=== PATIENT | male | born 1950 | race Caucasian/White ===

== ENCOUNTER 2025-03-16 11:27 | Emergency (ER) | payer MEDICARE, BC, SELFPAY ==
[2025-03-16] VITALS (9 sets, daily range): BP systolic 133–160; BP diastolic 75–105; PULSE 56–87; RESP 12–18; TEMP 36.6; O2SAT 95–99; BMI 26.5
--- OUTSIDE RECORDS SUMMARY | 2025-03-16 11:39 | XMS_ITS | Clinical Summary ---
Author Organization [employer] ([facility] 03/10/2024) ([place] [place]) Address [address] [place] [address] Care Team Providers Care Rent And Housing Investigator Name Role Phone Denise Peck DO Primary Care Provider Social History Tobacco Use Types Packs/Day Years Used Date Smoking Tobacco: Never Assessed Sex and Gender Information Value Date Recorded Sex Assigned at Not on file Legal Sex Male 5:32 PM EDT Gender Identity Not on file Sexual Orientation Not on file Last Filed Vital Signs Vital Sign Reading Time Taken Comments Blood Pressure - - Pulse - - Temperature - - Respiratory Rate - - Oxygen Saturation - - Inhaled Oxygen Concentration - - Weight 88.5 kg (195 lb) 06/04/2013 10:34 AM EDT Height - - Body Mass Index - - Plan of Treatment Health Maintenance Due Date Last Done Comments CT Colonography 1950 Colonoscopy 1950 Colorectal Cancer Screening 1950 FIT-DNA 1950 FIT/FOBT 1950 SCREENING: HEPATITIS C 1950 Sigmoidoscopy 1949 SCREENING: DEPRESSION 1961 HEALTH MAINTENANCE EXAM (ADULT) 1968 VACCINE: TETANUS,DIPHTHERIA BOOSTER (TD BOOSTER) EVERY 10 YEARS 1968 Pneumococcal Vaccine: 65+ Ye ars (1 of 1 - PCV) 12/23/1999 VACCINE: ZOSTER (SHINGRIX) (#1) 12/23/1999 Advance Care Planning Documentation 2014 SCREENING: FALL RISK 2014 VACCINE: COVID-19 ( - 2023- season) 2024 VACCINE: INFLUENZA (#1) 2025 VACCINE: HEPATITIS A Aged Out No long er eligible based on patient's age to complete this topic Vaccines: HIB Aged Out No longer elig ible based on patient's age to complete this topic Vaccines: IPV Aged Out No longer elig ible based on patient's age to complete this topic Vaccines: Meningococcal B Aged Out No longer eligible based on patient's age to complete this topic Vaccines: Meningococcal Aged Out No l onger eligible based on patient's age to complete this topic Vaccines: Rotavirus Aged Out No longe r eligible based on patient's age to complete this topic Care Teams Rent And Housing Investigator Relationship Specialty [place] [address] [place] [address] PCP - General 05/24/13
--- OUTSIDE RECORDS SUMMARY | 2025-03-16 11:39 | XMS_ITS | Encounter Summary ---
Author Organization [facility] stem Address [address] [place] [address] Care Team Providers Care Crystal Mounter Name Role Phone Denise Peck DO Primary Care Provider Encounter Details Date Type Department Care Team (Late st Contact Info) Description 10/06/2014 Scanned Document [facility] Information Management - [facility] [address] [place] [address] Ordering, Generic Social History Tobacco Use Types Packs/Day Years Used Date Smoking Tobacco: Never Sex and Gender Information Value Date Recorded Sex Assigned at Not on file Legal Sex Male 11:44 AM EDT Gender Identity Not on file Sexual Orientation Not on file documented as of this encounter H&P Notes * Ordering, Generic - 10/06/2014 12:00 PM EST documented in this encounter Plan of Treatment Not on file documented as of this encounter Visit Diagnoses Not on filedocumented in this encounter Care Teams Crystal Mounter Relationship Specialty Start Date End Date Denise Peck DO PCP - General Family Medicine 06/03/14 documented as of this encounter
--- OUTSIDE RECORDS SUMMARY | 2025-03-16 11:39 | XMS_ITS | Clinical Summary ---
Author Organization [facility] Address [address] [place] [address] Care Team Providers Care Cotton Sampler Name Role Phone Denise Peck DO Primary Care Provider [phone] Allergies No known active allergies Medications lisinopril (PRINIVIL,ZESTRI L) 10 MG tablet Take 10 mg by mouth daily. Active OMEGA-3/DHA/EPA/ FISH OIL (FISH OIL-OMEGA-3 FATTY ACIDS) 300-1,000 mg capsule Take 2 g by mouth daily. Active naproxen (NAPROSYN) 500 MG tabletIndication s:Disorders of bursae and tendons in shoulder region, unspecified Take 1 tablet (500 mg total) by mouth 2 (two) times daily with meals. 60 tablet 2 06/03/2014 Active Active Problems No known active problems Social History Tobacco Use Types Packs/Day Years Used Date Smoking Tobacco: Never Sex and Gender Information Value Date Recorded Sex Assigned at Not on file Legal Sex Male 11:44 AM EDT Gender Identity Not on file Sexual Orientation Not on file Last Filed Vital Signs Vital Sign Reading Time Taken Comments Blood Pressure 122/64 07/01/2014 4:07 PM EST Pulse - - Temperature - - Respiratory Rate - - Oxygen Saturation - - Inhaled Oxygen Concentration - - Weight 86.6 kg (191 lb) 07/01/2014 4:07 PM EST Height 185.4 cm (6' 1 ) 07/01/2014 4:07 PM EST Body Mass Index 25.2 07/01/2014 4:07 PM EST Plan of Treatment Not on file Insurance [facility] Care Teams Cotton Sampler Relationship Specialty Start Date End Date Denise Peck DO PCP - General Family Medicine 06/03/14
--- OUTSIDE RECORDS SUMMARY | 2025-03-16 11:39 | XMS_ITS | Encounter Summary ---
Author Organization [employer] ([facility] [place] 03/10/2024) ([facility], and [place]) Address [address] [place] [address] Care Team Providers Care Relief Operator Name Role Phone Unavailable Primary Care Provider Unavailabl e Encounter Details Date Type Department Care Team (Late st Contact Info) Description 04/05/1976 - 04/05/1976 11:59 PM EDT Emergency [facility] Social History Tobacco Use Types Packs/Day Years Used Date Smoking Tobacco: Never Assessed Sex and Gender Information Value Date Recorded Sex Assigned at Not on file Legal Sex Male 5:32 PM EDT Gender Identity Not on file Sexual Orientation Not on file documented as of this encounter Plan of Treatment Not on file documented as of this encounter Visit Diagnoses Not on filedocumented in this encounter
--- OUTSIDE RECORDS SUMMARY | 2025-03-16 11:39 | XMS_ITS | Referral Summary ---
Author Organization [employer] ([facility] 03/10/2024) ([facility], and [place]) Address [address] [place] [address] Care Team Providers Care Laborer Hide House Name Role Phone Denise Peck DO Primary Care Provider [phone] Social History Tobacco Use Types Packs/Day Years [...] Mass Index - - Plan of Treatment Not on file Care Teams Laborer Hide House Relationship Specialty [place] [address] [place] [address] PCP - General 05/24/13
--- NOTE | 2025-03-16 11:42 | ECG_ITS ---
[facility]25[facility]16 Pat Name: Flynn Colunga Department: Room: Gender: Male Web Project Manager: : 1950 Requested By: Papo Berger Order Number: [id number] Matias MD: Joshua Montague M.D. Measurements Intervals [place] Rate: 56 P: 0 NY: 0 QRS: 56 QRSD: 84 T: 57 QT: 467 QTc: 454 Interpretive Statements SINUS RHYTHM ATRIOVENTRICULAR DISSOCIATION ABNORMAL EKG No previous ECG available for comparison Electronically Signed On 03-16-2025 15:37:18 CDT by Eddi [id number]
--- NOTE | 2025-03-16 11:42 | XRR_ITS ---
PROCEDURE INFORMATION: Exam: XR Chest Exam date and time: 03/16/2025 11:48 AM Age: 74 years old Clinical indication: Other: Weak dizzy; Additional info: Dizziness TECHNIQUE: Imaging protocol: Radiologic exam of the chest. Views: 1 view. COMPARISON: No relevant prior studies available. FINDINGS: Lungs: Unremarkable. No consolidation. Pleural spaces: Unremarkable. No pleural effusion. No pneumothorax. Heart/Mediastinum: Borderline cardiomegaly. Bones/joints: No acute findings. XR/XR chest 1V portable [id number] IMPRESSION: No acute findings.
[2025-03-16 11:50] LABS: Hematocrit 47.4 % (37-53); Hemoglobin 16.10 g/dL (11.27-16.99); Mean Corpuscular HGB Conc 34.0 g/dL (30-55); Mean Corpuscular Hemoglobin 31.0 pg (27-33); Mean Corpuscular Volume 91.2 fl (82-101); Nucleated Red Blood Cells % 0 %; Platelet Count 215 10^3/cmm (157-399); Red Blood Count 5.20 10^6/uL (3.85-5.65); White Blood Count 8.84 10^3/uL (3.29-11.43)
[2025-03-16 12:14] LABS: Troponin(5th) Baseline 9 ng/L (0-15)
[2025-03-16 12:17] LABS: Magnesium 2.6 mg/dL (1.7-2.3)
[2025-03-16 12:20] LABS: Alanine Aminotransferase 11 U/L (0-41); Albumin Level 4.1 g/dL (3.5-5.2); Alkaline Phosphatase 99 U/L (40-130); Anion Gap 16.8 (5-19); Aspartate Amino Transferase 14 U/L (0-40); Blood Urea Nitrogen 14 mg/dL (8-23); Calcium 8.7 mg/dL (8.5-10.5); Carbon Dioxide 24 mmol/L (22-29); Chloride 104 mmol/L (98-107); Creatinine Clr Calc Pharmacy 69.2749; Globulin 2.1 g/dL (1.3-4.6); Glucose 112 mg/dL (65-115); NT Pro B Type Natriuretic Pept 124 pg/mL (0-450); Osmolality Calculated 293 mOsm/kg (285-295); Potassium 3.8 mmol/L (3.5-5.1); Sodium 141 mmol/L (136-145); Total Protein 6.2 g/dL (6.6-8.7)
--- NOTE | 2025-03-16 12:30 | PC.PHAR ---
Addendum entered by Charmaine Rios 03/16/25 12:32: Pt will need a few tablets until he can get home. Original Note: Pt states his bp has been stable for the last 2 months so he has not been taking his lisinopril 10mg. He sees now, that he should have been. Pt visiting from [place].
--- NOTE | 2025-03-16 12:36 | ED_ITS ---
HPI - Dizziness 2 General: Chief Complaint: Dizziness Stated Complaint: weakness Time Seen by Provider: 03/16/25 11:36 History of Present Illness: HPI Narrative: Flynn Colunga presents with acute onset of sweating, racing heart, and leg spasms that began approximately 45 minutes after eating biscuits and gravy this morning while at [employer]. The patient reports that he began feeling unwell about 45 minutes after eating breakfast. He experienced profuse sweating and a sensation of his heart racing, which he likened to previous episodes of gallbladder trouble in 2005. Due to these symptoms and a developing headache, he borrowed and took a nitroglycerin tablet from his brother. Subsequently, he went outside and sat down, where he continued to sweat heavily. Bystanders reported that he lost consciousness for approximately 15 seconds. Upon regaining consciousness, he found that an ambulance had arrived. Mr. Colunga also mentions a fall that occurred three days ago on Monday afternoon, resulting in shoulder pain, a scratched head, and bruising of his knee and elbow. He reports being unable to sleep on the affected shoulder and suspects he may have bruised a bone internally. Additionally, he notes that his leg began experiencing spasms while in the ambulance, a symptom he had never experienced before. He describes the spasms as starting in his upper leg and progressing downward. The patient's medical history includes a recent hospitalization for COVID-19 with pneumonia, lasting 7-8 days. Following his discharge, he reports his blood pressure had normalized, but he now notices it has increased again. He mentions discontinuing lisinopril 10 mg two months ago, which he had previously been taking. Mr. Colunga denies any history of atrial fibrillation, heart stents, or heart surgeries. Related Data Home Medications ?Medication ?Instructions ?Recorded ?Confirmed lisinopril 10 mg tablet 10 mg PO DAILY 03/16/2502/19 Allergies Allergy/AdvReac Type Severity Reaction Status Date / Time No Known Allergies Allergy Unverified 03/16/25 12:30 Review of Systems 2 General: Reports: 10 or more systems reviewed and unremarkable except in HPI and below Physical Exam 2 Const: COMMON NORMALS: no acute distress, patient oriented x3, healthy appearing, alert and well nourished HENMT: COMMON NORMALS: normocephalic HEAD & SCALP: normocephalic Eye: COMMON NORMALS: EOMs intact bilaterally Neck/C-Spine: COMMON NORMALS: full ROM and supple Resp: COMMON NORMALS: normal respiratory effort, No retractions and clear to auscultation bilaterally AUSCULTATION: clear to auscultation bilaterally Cardio: COMMON NORMALS: regular rate, regular rhythm, No gallops present (Cardio) and No murmurs present (Cardio) RATE: regular rate RHYTHM: r egular rhythm GI: COMMON NORMALS: Soft to palpation and non-tender PALPATION: Yes Soft to palpation Extremity: GENERAL: Yes normal exam except as noted Neuro: COMMON NORMALS: patient oriented x3 SENSORIUM/ORIENTATION: Yes alert Skin: COMMON NORMALS: no rashes or lesions noted GENERAL SKIN EXAM: no rashes or lesions noted Course 2 Vital Signs: Vital signs: Vital Signs Temperature 97.9 F 03/16/25 11:37 Pulse Rate 87 03/16/25 15:32 Respiratory Rate 18 03/16/25 15:00 Blood Pressure 140/85 03/16/25 15:32 Pulse Oximetry 96 03/16/25 15:32 Oxygen Delivery Me thod Room Air 03/16/25 15:00 MDM - Dizziness Medical Decision Making 74-year-old male presents to the emergency department for evaluation of near syncope and diaphoresis. Patient experienced near syncope just prior to arrival with some diaphoresis. He took a nitro without any improvement in symptoms. After the nitro there is a report of him having a syncopal episode. On initial evaluation he is hypertensive with a slightly slow pulse rate satting 99% on room air. Physical exam the patient has no acute distress with a globally normal physical exam. Chest x-ray had no acute findings. CBC and CMP were normal. Initial and 2-hour tropes were not elevated outside of normal. EKG initially demonstrated possible paroxysmal A-fib that resolved on 2-hour repeat EKG. Patient felt significantly improved with 1 L of fluid. His magnesium was elevated, this is likely secondary to hypervolemia. Encouraged the patient to follow-up with his primary care provider regarding this syncopal episode and possible paroxysmal A-fib. He may benefit from Holter monitor. Return precautions were discussed and the patient was discharged home in stable condition. Lab Data 03/16/25 11:41 03/16/25 11:41 Radiology Impressions Chest X-Ray 03/16/25 11:42 IMPRESSION: No acute findings. Laboratory Results WBC 8.84 10^3/uL (3.29-11.43) 03/16/25 11:41 RBC 5.20 10^6/uL (3.85-5.65) 03/16/25 11:41 Hgb 16.10 g/dL (11.27-16.99) 03/16/25 11:41 Hct 47.4 % (37-53) 03/16/25 11:41 MCV 91.2 fl (82-101) 03/16/25 11:41 MCH 31.0 pg (27-33) 03/16/25 11:41 MCHC 34.0 g/dL (30-55) 03/16/25 11:41 RDW 12.6 % (12.1-15.1) 03/16/25 11:41 Plt Count 215 10^3/cmm (157-399) 03/16/25 11:41 MPV 11.1 fL (7.4-10.4) H 03/16/25 11:41 Neut % (Auto) 59.1 % 03/16/25 11:41 Lymph % (Auto) 31.4 % 03/16/25 11:41 [place] % (Auto) 7.9 % 03/16/25 11:41 Eos % (Auto) 0.6 % 03/16/25 11:41 Baso % (Auto) 0.5 % 03/16/25 11:41 Neut # (Auto) 5.23 10^3/uL (1.8-7.7) 03/16/25 11:41 Lymph # (Auto) 2.8 10^3/uL (0.8-4.8) 03/16/25 11:41 [place] # (Auto) 0.7 10^3/uL (0.2-0.9) 03/16/25 11:41 Eos # (Auto) 0.1 10^3/uL (0.0-0.8) 03/16/25 11:41 Baso # (Auto) 0.0 10^3/uL (0.0-0.1) 03/16/25 11:41 Nucleated RBC % (auto) 0 % 03/16/25 11:41 Nucleated RBCs # 0.0 /100WBC 03/16/25 11:41 Sodium 141 mmol/L (136-145) 03/16/25 11:41 Potassium 3.8 mmol/L (3.5-5.1) 03/16/25 11:41 Chloride 104 mmol/L (98-107) 03/16/25 11:41 Carbon Dioxide 24 mmol/L (22-29) 03/16/25 11:41 Anion Gap 16.8 (5-19) 03/16/25 11:41 BUN 14 mg/dL (8-23) 03/16/25 11:41 Creatinine 1.1 mg/dL (0.7-1.2) 03/16/25 11:41 GFR Calculation Not Reportable 03/16/25 11:41 Glucose 112 mg/dL (65-115) 03/16/25 11:41 Calculated Osmolality 293 mOsm/kg (285-295) 03/16/25 11:41 Calcium 8.7 mg/dL (8.5-10.5) 03/16/25 11:41 Magnesium 2.6 mg/dL (1.7-2.3) H 03/16/25 11:41 Total Bilirubin 0.9 mg/dL (0.15-1.2) 03/16/25 11:41 AST 14 U/L (0-40) 03/16/25 11:41 ALT 11 U/L (0-41) 03/16/25 11:41 Alkaline Phosphatase 99 U/L (40-130) 03/16/25 11:41 Troponin T Baseline 9 ng/L (0-15) 03/16/25 11:41 Troponin T 120 Minute 13.84 ng/L (0-15) 03/16/25 13:41 Delta Troponin T 4.84 ABS# (0-10) 03/16/25 13:41 NT-Pro-B Natriuret Pep 124 pg/mL (0-450) 03/16/25 11:41 Total Protein 6.2 g/dL (6.6-8.7) L 03/16/25 11:41 Albumin 4.1 g/dL (3.5-5.2) 03/16/25 11:41 Globulin 2.1 g/dL (1.3-4.6) 03/16/25 11:41 All radiology interpretation(s) finalized by discharge EKG Data EKG 1: Interpretation: Paroxysmal A-fib with a rate of 56, QRS 84, QTc 460. No ST segment elevation or depression. EKG 2: Interpretation: Normal sinus rhythm with a rate of 62, TN 228, QRS 91, QTc 444, no ST segment elevation or depression Discharge Plan Discharge Patient Disposition: Home Clinical Impression: Acute dehydration, Hypermagnesemia, Dizziness Condition: Stable Prescriptions: No Action lisinopril 10 mg tablet 10 mg PO DAILY Discharge Orders: Discharge ED (Routine); Ordered 03/16/25 Ordered By: Papo Law Discharge Diet: Advance as tolerated Discharge Activity: Resume usual activity Patient Instructions: Opioid Safety, Pain Management, Patient Portal & Roxanne Instructions Activity Restrictions/Additional Instructions: Please follow-up with your primary care doctor for further evaluation of near syncope. Return to the emergency department with any new or worsening symptoms. Print Language: Uruguayan Coding Level of Care Code ED Derrick Boat Leverman for Jackson Patel
--- NOTE | 2025-03-16 13:26 | PC.NURSE ---
Pt friend in room voiced concern for pt's bp being 180's/130's This nurse assessed pt, pt laying on bp cuff on left arm, bp cuff moved to right arm and refastened, new bp 143/80. Pt appears somewhat anxious.
--- NOTE | 2025-03-16 13:42 | ECG_ITS ---
[facility] 2025[facility]16 Pat Name: Flynn Colunga Department: Room: Gender: Male Tax Manager: : 1950 Requested By: Papo Berger Order Number: [id number] Matias MD: Joshua Montague M.D. Measurements Intervals [place] Rate: 62 P: 74 NY: 228 QRS: 12 QRSD: 91 T: 33 QT: 438 QTc: 447 Interpretive Statements SINUS RHYTHM WITH SINUS ARRHYTHMIA WITH FIRST DEGREE AV BLOCK No previous ECG available for comparison Electronically Signed On 03-16-2025 15:51:59 CDT by Eddi [email or web address]
[2025-03-16 14:03] LABS: Troponin 5 2HR 13.84 ng/L (0-15); Troponin 5 2HR Delta 4.84 ABS# (0-10)
--- NOTE | 2025-03-16 16:23 | USCV_ITS ---
Flynn Colunga Age: 74 Gender: M : 1950 Exam Date: 03/16/2025 17:56 Ordering Phys: Joshua Montague MD ([email or web address]) Technologist: Corky Monteiro Exam Location: [facility] Indication: chest pain BP: 140 / 85 HR: 68 Rhythm: Sinus Technical Quality: Adequate MEASUREMENTS (Male / Female) Normal Values 2D ECHO LV Diastolic Diameter PLAX 5.0 cm 4.2 - 5.9 / 3.9 - 5.3 cm IVS Diastolic Thickness 0.9 cm 0.6 - 1.0 / 0.6 - 0.9 cm IVS Systolic Thickness 1.1 cm LVPW Diastolic Thickness 1.1 cm 0.6 - 1.0 / 0.6 - 0.9 cm LVPW Systolic Thickness 1.6 cm LVOT Diameter 2.0 cm LV Ejection Fraction 2D Teich 69.6 % LV Ejection Fraction MOD 4C 57.7 % LV Ejection Fraction MOD 2C 70.0 % LV Ejection Fraction 2C AL 69.7 % LA Diameter 3.1 cm RA Systolic Volume 4C AL 21.3 ml RA Systolic Volume 4C MOD 21.5 ml LA Sys Volume AL 36.7 cm cubed LA Sys Volume Index AL 16.9 cm cubed/m squared Aorta at Sinotubular Diameter 2.6 cm IVC Diameter 1.3 cm M-MODE LA Ao Ratio MM 1.2 AV Cusp Separation MM 1.9 cm DOPPLER AV Peak Velocity 343.7 cm/s LVOT Peak Velocity 94.0 cm/s AV Area Cont Eq vti 2.1 cm squared AV Area Cont Eq pk 0.9 cm squared MV Peak Velocity 97.0 cm/s MV Area PHT 3.3 cm squared Mitral E to A Ratio 0.8 TV Peak Velocity 234.0 cm/s TR Peak Velocity 322.0 cm/s TR Peak Gradient 41.5 mmHg TR Mean Velocity 250.0 cm/s TR Mean Gradient 27.0 mmHg TR Velocity Time Integral 92.5 cm PV Peak Velocity 88.0 cm/s RV Ejection Time 0.3 s FINDINGS Left Ventricle Normal left ventricular cavity size. Normal ejection fraction 57%. There is severe hypokinesis of the mid and basal anterolateral and inferolateral wall segments. Grade 1 left ventricular diastolic dysfunction-normal for patient's age. Right Ventricle Normal right ventricular size and systolic function Right Atrium Normal right atrial size Left Atrium Normal left atrial size Mitral Valve Normal mitral valve structure and function Aortic Valve Trileaflet aortic valve. No aortic valve stenosis. Mild aortic valve regurgitation Tricuspid Valve Trace tricuspid valve regurgitation. TR jet not adequate to assess pulmonary pressure. Pulmonic Valve Mild to moderate pulmonic valve regurgitation Pericardium No pericardial effusion Aorta Normal size of the ascending aorta aortic root IVC Normal IVC size CONCLUSIONS 1. Left ventricular systolic dysfunction with severe hypokinesis of the mid and basal anterolateral and inferolateral wall segments consistent with possible stenosis of an obtuse marginal or circumflex vessel. Overall ejection fraction is in the normal range, 57% 2. Mild aortic valve regurgitation 3. Mild to moderate pulmonic valve regurgitation Joshua Montague MD (Electronically Signed) Final Date: 17 March 2025 09:29 S
--- NOTE | 2025-03-16 18:11 | PM.CONSULT ---
Providers/Reason For Consult Consulting Physician/Specialty*: Joshua Montague MD Reason for Consult*: Lightheadedness, CP History of Present Illness History of Present Illness Flynn Colunga is a 74 year old male with a history of hypertension who has been having some exertional anterior substernal chest pressure. Today he was in zoro[employer]rian and developed some lightheadedness. He was not feeling well. He took a sublingual nitroglycerin from a family member and then had a subsequent syncopal episode for approximately 15 seconds. He came to the emergency room. On my review his initial EKG showed A-V dissociation. Subsequent EKG showed no heart block or A-V dissociation. The patient states that when he walked upstairs after being released from the emergency room he felt anterior chest discomfort. He denies having any cardiac history. Medications/Allergies Home Medications ?Medication ?Instructions ?Recorded ?Confirmed ?Last Taken ?Type lisinopril 10 mg tablet 10 mg PO DAILY 03/16/25 03/16/25 2 Months Ago History ~01/14/25 Allergies Allergy/AdvReac Type Severity Reaction Status Date / Time No Known Allergies Allergy Unverified 03/16/25 12:30 Vitals/I&O/Wt Last Vital Signs Temp 97.9 F 03/16/25 11:37 Pulse 87 03/16/25 15:32 Resp 18 03/16/25 15:00 BP 140/85 03/16/25 15:32 Pulse Ox 96 03/16/25 15:32 O2 Del Method Room Air 03/16/25 15:00 03/16/25 03/16/25 03/16/25 06:59 14:59 22:59 Intake Total 1000 / 1000 Balance 1000 / 1000 Weight last 48 hrs Weight 201 lb Physical Exam Const: COMMON NORMALS: no acute distress, patient oriented x3, healthy appearing and well nourished Neck/C-Spine: COMMON NORMALS: no JVD and No carotid bruits Resp: COMMON NORMALS: normal respiratory effort and clear to auscultation bilaterally AUSCULTATION: clear to auscultation bilaterally Cardio: COMMON NORMALS: no JVD Extremity: COMMON NORMALS: normal to inspection and no pedal edema Neuro: COMMON NORMALS: patient oriented x3 Data 03/16/25 11:41 03/16/25 11:41 A&P Assessment and plan 1. Chest pressure: Concerning for unstable angina. Troponin 5 hours after symptomatic episode normal. 2. Atrioventricular (AV) dissociation: Intermittent and I suspect the reason for his lightheadedness in zoroastrian prior to taking the sublingual nitroglycerin from his family member when he was feeling unwell 3. Hypertension: Currently mildly uncontrolled 4. Lightheaded: Suspect due to arrhythmia Plan: The patient's initial EKG in the emergency room is consistent with A-V dissociation and the patient may require a permanent pacemaker. We need to rule out underlying structural heart disease including obstructive coronary artery disease prior to proceeding with this recommendation. Will obtain an echocardiogram as well as an exercise nuclear stress test. He can be resumed on his lisinopril to treat his hypertension. Continue telemetry monitoring. Keep n.p.o. after midnight PDMP PDMP Reviewed: Not Reviewed Coding Level of Care Code 49635 Diagnoses Chest pressure R07.89 Atrioventricular (AV) dissociation I45.89 Hypertension I10 Lightheaded R42
== END 2025-03-16 15:33 | disposition home or self-care (01) ==
PROVIDERS: Emergency Provider General Practice
DX: E86.0 Dehydration (principal); E83.41 Hypermagnesemia; R42 Dizziness and giddiness
CPT/HCPCS: 36415; 71045; 80053; 83735; 83880; 84484; 85025; 93005; 93306; 96360; 96361; 99285; J7030

== ENCOUNTER 2025-03-16 16:08 | Inpatient (IN) | payer MEDICARE, BC, SELFPAY ==
--- OUTSIDE RECORDS SUMMARY | 2024-09-10 04:40 | XMS_ITS ---
Author Organization [facility] Dept Address [address] [place] [address] Care Team Providers Care Business Office Coordinator Name Role Phone Vin WICK, Nathan Primary Care Provider Unavail Kamaljit Barfield Unavailable [phone] Banuelos PFT only Encounters Encounter Location Date Provider Diagnosis [facility]- Kamaljit Peña MD [address] [facility] [address] [place] [id number] 09/10/2024 Kamaljit Peña Plan Of Treatment No Information Progress Notes * Flynn COLUNGADOB: 0 (74 yo M)Acc No.[id number]:09/10/2024 Patient: Flynn JOLLEY Provider: Michele Peña MD :1950 A ge:73 Y S ex:Male Date:09/10/2024 Address:[address] [place], [place] [id number] Pcp:Nathan Banuelos MD Subjective: * Chief Complaints: * [address] Banuelos PFT only. * Medical History: Objective: * Vitals: Assessment: Plan: * Treatment: * * Electronic signature of Kamaljit Peña MD on 03/16/2025 at 05:13 PM EDT Sign off status: Pending * Provider: Michele Pñea MD Date: 0 09/10/2024 Generated for Mikayla sandy/Brian/eTransmitting on: 0 03/16/2025 05:13 PM EDT
--- OUTSIDE RECORDS SUMMARY | 2025-03-16 16:13 | XMS_ITS | Clinical Summary ---
Author Organization [facility] Address [address] [place] [address] Care Team Providers Care Painter Sign Maintenance Name Role Phone Phys, Unable To Identify Primary Care Provider U navailable Allergies No known active allergies Medications peg 3350-electrolyt es (NULYTELY) 420 g solution Follow the preparation instructions provided in the clinic discharge paperwork. 4000 mL 9 Active peg 3350-electrolyt es (NULYTELY) 420 g solution Follow the preparation instructions provided in the clinic discharge paperwork. 4000 mL 9 Active lisinopril (ZESTRIL) 10 mg tablet Take 1 tablet (10 mg) by mouth once daily. 365 tablet 9 Active aspirin 81 mg chewable tablet Chew 81 mg and swallow once daily. X 4 weeks Active oxyCODONE (ROXICODONE) 5 mg tablet Take 5 mg by mouth every six hours as needed for pain. For 3 days 0 Active polyethylene glycol 3350 (MIRALAX) 17 g/dose powder Mix 17 g in water and then drink once daily as needed for constipation. As needed Active senna-docusate (OPAL-COLACE) 8.6-50 mg tablet Take 1 tablet by mouth once daily as needed. Active Active Problems Problem Noted Date Diagnosed Date Hip fracture requiring opera tive repair, left, closed, initial encounter 04/16/2020 Thyroid nodule 06/21/2018 Overview (06/21/2018): Subcm on thyroid us with normal tsh 06/08 Repeat in 1 year Prediabetes 05/30/2018 Diverticulosis 05/29/2017 Prostate cancer 05/02/2017 Hyperlipidemia 05/02/2017 Squamous cell carcinoma in situ of skin 05/02/20 17 History of skin cancer 02/14/2017 Benign essential HTN 02/14/2017 ARTEM (obstructive sleep apnea) 02/14/2017 Overview (05/31/2019): 05/2019--not using CPAP Immunizations Immunization Administration Dates Next Due Influenza, Trivalent, High D ose (P-free) (65 Yrs And Older) 05/30/2018,05/02/2017 Pneumococcal conjugate 13 (Prevnar 13) (Historic only) 05/02/2017 Pneumococcal polysaccharide (age 2-adult)(Pneumovax 23) 02/23/2016 Tetanus+Diphtheria+Pertussis (age 7 years and ol sindhu) 03/02/2017 Family History Medical History Relation Name Comments Skin cancer Brother 1 Colon polyps Brother 2 Alcohol abuse Father Cancer Father Breast cancer Mother Diabetes Mother Hypertension Mother Stroke Mother Relation Name Status Comments Brother 1 Alive Brother 2 Alive Daughter 1 Alive Daughter 2 Alive Father Maternal Grandfather Maternal Grandmother Mother Paternal Grandfather Paternal Grandmother Sister Alive Son Alive Social History Tobacco Use Types Packs/Day Years Used Date Smoking Tobacco: Never Smokeless Tobacco: Never Alcohol Use Standard Drinks/Week Comments No 0 (1 standard drink = 0.6 oz pur e alcohol) Hunger Vital Sign Answer Date Recorded Worried About Running Out of Food in the Last Ye ar Never true 05/31/2019 Ran Out of Food in the Last Year Never true 05/31/2019 PRAPARE - Transportation Answer Date Re corded Lack of Transportation (Medical) No 05/31/2019 Lack of Transportation (Non-Medical) No 05/31/2019 Child or Elder Care Answer Date Recorde d Child or Elder Care No 05/31/2019 Depression (PHQ-9) Answer Date Recorded Last PHQ-9 Score 0 06/12/2022 Not on file 06/12/2022 Sex and Gender Information Value Date Recorded Sex Assigned at Not on file Legal Sex Male 2:35 PM EDT Gender Identity Not on file Sexual Orientation Not on file Last Filed Vital Signs Vital Sign Reading Time Taken Comments Blood Pressure 117/72 05/31/2019 11:05 AM EDT Pulse 80 05/31/2019 11:05 AM EDT Temperature 36.2 C (97.2 F) 05/29/2017 2:01 PM EDT Respiratory Rate 16 05/18/2017 7:37 AM EDT Oxygen Saturation - - Inhaled Oxygen Concentration - - Weight 88 kg (193 lb 14.4 oz) 05/31/2019 11:05 A M EDT Height 185.4 cm (6' 1 ) 05/31/2019 11:05 AM EDT Body Mass Index 25.58 05/31/2019 11:05 AM EDT Plan of Treatment Health Maintenance Due Date Last Done Comments Cologuard (average risk only) 1950 FIT (average risk only) 1950 Zoster Recombinant Vaccines (1 of 2) 12/23/1999 Colonoscopy 08/21/2017 08/21/2016 (Done Elsewhere (external result in CareEverywhere or Media)) Colorectal Cancer Screening 08/21/2017 COVID-19 Vaccine ( - 2023-25 season) 2024 Respiratory Syncytial Virus (RSV) or ages 60 years and older (1 - 1-dose 75+ series) 2024 Influenza Vaccine (#1) 2025 05/30/2018, 2016 DTaP,Tdap,and Td Vaccines (2 - Td or Tdap) 03/02/2027 03/02/2017 Hepatitis C Screening Completed 03/02/2017 Pneumococcal Vaccines 50years + Completed 05/02/2017, 02/23/2016 Respiratory Syncytial Virus (RSV) ages 0 thru 19 months Aged Out No longer eligible based on patient's age to complete this topic Procedures Procedure Name Priority Date/Time Associated Diagnosis Comments HEPATITIS C ANTIBODY Routine 03/02/2017 10:43 AM EDT Need for hepatitis C screening test from Last 3 Months or Most Recently Relevant to Health Maintenance Results * Hepatitis C Antibody (03/02/2017 10:43 AM EDT) Hepatitis C Ab, Qualitative Non-Reacti ve Non-React [facility] Blood. 03/02/2017 10:4 3 AM EDT 03/02/2017 1:33 PM EDT Tricia Damon DO LAB BLOOD TESTS Final Result [facility] [address] [place] [address], [place] [phone] from Last 3 Months or Most Recently Relevant to Health Maintenance Insurance MEDICARE PART A AND B [facility] [id number] Care Teams Painter Sign Maintenance Relationship Specialty Start Date End Date Phys, Unable To Identify PCP - General 12/02/24
--- OUTSIDE RECORDS SUMMARY | 2025-03-16 16:13 | XMS_ITS | Clinical Summary ---
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 Active aspirin 325 mg tablet Take 325 mg by mouth if needed for mild pain. Active Active Problems Problem Noted Date Diagnosed Date Status post total hip replacement, left 04/14/20 20 Essential hypertension 04/13/2020 Closed fracture of left hip (CMS/HCC V24, CMS/HC C V28) 04/11/2020 Immunizations Name Administration Dates Next Due Influenza trivalent, 0.5mL ( Fluzone High-dose) 65yo and older 05/30/2018,05/02/2017 Pneumococcal conjugate 13 va lent (Prevnar 13, PCV13) 2mo and older 05/02/2017 Pneumococcal polysaccharide 23 valent (Pneumovax 23) 2yo and older 02/23/2016 Tdap Tetanus diptheria acell ular pertussis (Boostrix; Adacel) 7yo and older 03/02/2017 Surgical History Surgery Date Site/Laterality Comments PROSTATECTOMY APPENDECTOMY SKIN BIOPSY VASECTOMY HIP ARTHROPLASTY 04/12/2020 Left Medical History Medical History Date Comments Hypertension Essential hypertension 04/13/2020 Social History Tobacco Use Types Packs/Day Years Used Date Smoking Tobacco: Never Smokeless Tobacco: Never Alcohol Use Standard Drinks/Week Comments Not Currently 0 (1 standard drink = 0.6 oz pur e alcohol) Sex and Gender Information Value Date Recorded Sex Assigned at Not on file Legal Sex Male 9:11 AM EDT Gender Identity Not on file Sexual Orientation Not on file Obstetrics History Last Filed Vital Signs Vital Sign Reading Time Taken Comments Blood Pressure 137/85 04/14/2020 11:14 AM EDT Pulse 97 04/14/2020 11:14 AM EDT Temperature 36.7 C (98.1 F) 05/27/2020 12:51 PM EDT Respiratory Rate 18 04/14/2020 11:14 AM EDT Oxygen Saturation 96% 04/14/2020 11:14 AM EDT Inhaled Oxygen Concentration - - Weight 88 kg (194 lb) 05/27/2020 12:51 PM EDT Height 182.9 cm (6') 05/27/2020 12:51 PM EDT Body Mass Index 26.31 05/27/2020 12:51 PM EDT Plan of Treatment Health Maintenance Due Date Last Done Comments Zoster Vaccines (1 of 2) 12/23/1999 Abdominal Aortic Aneurysm (AAA) Screen 09/28/2019 Colorectal Cancer Screening: Colonoscopy 09/28/2019 Falls Risk Assessment 09/28/2019 Hepatitis C Screening 09/28/2019 Medicare Annual Wellness Visit 09/28/2019 Social Influencers of Health Screening 09/28/2019 Hypertension/CHF/CAD Annual BMP Blood Test 04/14/2021 04/14/2020, 04/13/2020, 04/11/2020, Additional history exists COVID-19 Vaccine ( - 2023- season) 2024 Cholesterol Screening (Lipid Panel) 05/27/2024 05/27/2019, 05/30/2018 Depression Screening 08/21/2024 RSV Immunization Adult Patients (1 - 1-dose 75+ series) 2024 Influenza Vaccine (#1) 2025 05/30/2018, 2016 DTaP,Tdap,and Td Vaccines (2 - Td or Tdap) 03/02/2027 03/02/2017 Pneumococcal Vaccine: 50+ Years Completed 05/02/2017, 02/23/2016 HIB Vaccines Aged Out No longer eligi ble based on patient's age to complete this topic HPV Vaccines Aged Out No longer eligi ble based on patient's age to complete this topic Hepatitis A Vaccines Aged Out No long er eligible based on patient's age to complete this topic Hepatitis B Vaccines Aged Out No long er eligible based on patient's age to complete this topic IPV Vaccines Aged Out No longer eligi ble based on patient's age to complete this topic MMR Vaccines Aged Out No longer eligi ble based on patient's age to complete this topic Meningococcal ACWY Vaccine Aged Out N o longer eligible based on patient's age to complete this topic Meningococcal B Vaccine Aged Out No l onger eligible based on patient's age to complete this topic RSV Immunization Patients Under 20 months Aged Out No longer eligible based on patient's age to complete this topic Varicella Vaccines Aged Out No longer eligible based on patient's age to complete this topic Medical Devices Implanted Type Area Mysql Developer Device Identifier Shelf Expiration Date Model / Serial / Lot Cement Bone Palacos High-Viscosity - Sna - [id number] Implanted:Qty: 2 on 04/12/2020 by Kamaljit Ross MD at [facility] Bone Cement Left: Hip [employer] 06/20/2022 [id number] / NA / [id number] Hip Insrt Mod Dl Mobility 46mm - Sna - [id number] Implanted:Qty: 1 on 04/12/2020 by Kamaljit Ross MD at [facility] Joints Hip Left: Hip [employer] [id number] 02/23/2025 626-00-46F / NA / [id number] Tritanium Cluster Hole Shell 58mm - Sna - [id number] Implanted:Qty: 1 on 04/12/2020 by Kamaljit Ross MD at [facility] Joints Hip Left: Hip [employer] [id number] 10/01/2024 702-04-58F / NA / [id number] ++Dnu+ Use Onn Punchout Hip Stem Fem C-Cmnt 127d 7x158 - Sna - [id number] Implanted:Qty: 1 on 04/12/2020 by Kamaljit Ross MD at [facility] Joints Hip Left: Hip [employer] [id number] 12/29/2020 6057-0740D / NA / [id number] Hip Head Delta Biolox 28mm-0 - Sna - [id number] Implanted:Qty: 1 on 04/12/2020 by Kamaljit Ross MD at [facility] Joints Hip Left: Hip [employer] [id number] 03/10/2025 6570-0-128 / NA / [id number] Hip Insert Adm X3 28/52mm - Sna - [id number] Implanted:Qty: 1 on 04/12/2020 by Kamaljit Ross MD at [facility] Joints Hip Left: Hip [employer] [id number] 02/08/2023 1236-2-852 / NA / [id number] Tebbetts Bone Prep Kit Implanted:Qty: 1 on 04/12/2020 by Kamaljit Ross MD at [facility] Left: Hip [employer] [id number] / NA / [id number] Description:Cement restricto r implanted Procedures Procedure Name Priority Date/Time Associated Diagnosis Comments BASIC METABOLIC PANEL Routine 04/14/2020 5:25 AM EDT Closed fracture of left hip, initial encounter ([facility] V24, [facility] V28) from Last 3 Months or Most Recently Relevant to Health Maintenance Results * (ABNORMAL) Basic metabolic panel (04/14/2020 5:25 AM EDT) Sodium Level 135 135 - 144 MEQ/L 04/14/2020 6:50 AM EDT [facility] Potassium 3.8 3.5 - 5.3 MEQ/L 04/14/2020 6:50 AM EDT [facility] Chloride 104 98 - 112 MEQ/L 04/14/2020 6:50 AM EDT [facility] Carbon Dioxide 23 20 - 30 MEQ/L 04/14/2020 6:50 AM EDT [facility] Blood Urea Nitrogen (BUN) 15 6 - 23 MG/DL 04/14/2020 6:50 AM EDT [facility] Calcium 7.8(L) 8.5 - 10.1 MG/DL 04/14/2020 6:50 AM EDT [facility] Creatinine 0.99 0.64 - 1.27 MG/DL 04/14/2020 6:50 AM EDT [facility] Glucose 109(H) 70 - 100 MG/DL 04/14/2020 6:50 AM EDT [facility] GFR Black (Male) 90 >60 mL/min 04/14/2020 6:50 AM EDT [facility] GFR Other (Male) 75 >60 mL/min 04/14/2020 6:50 AM EDT [facility] Blood Topography not assigned / Unknown 04/14/2020 5:25 AM EDT 04/14/2020 6:14 AM EDT [facility] BLOOD ORDERABLES Final Re sult [facility] [address] [place] [address], [place] [phone] from Last 3 Months or Most Recently Relevant to Health Maintenance Insurance MEDICARE [facility] Advance Directives * Full Code - Default (Latest Code Status on File) Date Activated Date Inactivated Comments 04/12/2020 8:42 AM 04/14/2020 4:28 PM This is orde r is used when code status has not been discussed with the patient, or code status is otherwise unknown/unconfirmed To update the patient's code status, place a code status order. Do not modify or discontinue any currently active code status orders. Care Teams Shell Freezing Machine Operator Relationship Specialty Start Date End Date Physician, Pcp Unknown PCP - General 04/11/20
--- OUTSIDE RECORDS SUMMARY | 2025-03-16 16:13 | XMS_ITS | Clinical Summary ---
Author Organization [facility] include [facility] beds at the [facility] Address [address] [place] [id number] Care Team Providers Care Sales Secretary Name Role Phone Unavailable Primary Care Provider Unavailabl e Social History Tobacco Use Types Packs/Day Years Used Date Smoking Tobacco: Never Assessed [facility] Housing Answer Date Recorded Living Situation Not on file 04/06/2023 Housing Problems Not on file 04/06/2023 [facility] Safety Answer Date Recorded Threatened Not on file 04/06/2023 Insulted Not on file 04/06/2023 Physically Hurt Not on file 04/06/2023 Scream Not on file 04/06/2023 Sex and Gender Information Value Date Recorded Sex Assigned at Not on file Legal Sex Male 7:31 AM EDT Gender Identity Not on file Sexual Orientation Not on file Plan of Treatment Not on file
--- OUTSIDE RECORDS SUMMARY | 2025-03-16 16:13 | XMS_ITS | Clinical Summary ---
Author Organization [facility] ([facility] 03/10/2024) [place] Address [address] [place] [address] Care Team Providers Care Preschool Assistant Name Role Phone Denise Peck DO Primary Care Provider [phone] Social History Tobacco Use Types Packs/Day Years [...] age to complete this topic Care Teams Preschool Assistant Relationship Specialty [place] [address] [place] [address] PCP - General 05/24/13
--- OUTSIDE RECORDS SUMMARY | 2025-03-16 16:13 | XMS_ITS | Data Portability ---
Author Organization [place] - Denise Peck, [facility], DENISE PECK [facility] Address [address] [place] [address] Assessment No assessment recorded. Plan of Treatment Reminders Order Date Submit Date Provider Last Modified By Organization Details Last Modified Time Details Appointments None recorded. Lab PSA, serum or plasma 2015 016 DBA_PATCH_ [id number] Not available 6 04:08:38 CBC w/ auto diff 2015 016 DBA_PATCH_ [id number] Not available 6 04:08:37 CMP, serum or plasma 2015 016 DBA_PATCH_ [id number] Not available 6 04:08:39 lipid panel, serum 2015 016 DBA_PATCH_ [id number] Not available 6 04:08:37 lipid panel, serum 2014 015 jfretz Not available 5 22:14:48 erythrocyt e sedimentat ion rate by westergren method 2014 015 jfretz Not available 5 22:14:48 CBC w/ auto diff 2014 015 jfretz Not available 5 22:14:48 CMP, serum or plasma 2014 015 jfretz Not available 5 22:14:48 TSH, serum or plasma 2014 015 jfretz Not available 5 22:14:48 PSA, serum or plasma 2014 015 jfretz Not available 5 22:14:48 testostero ne, free + total, serum 2014 015 jfretz Not available 5 22:14:48 vitamin D, 25-hydroxy , total, serum 2014 015 jfretz Not available 5 22:14:48 Referral None recorded. Procedures cryosurger y (PROC) 2015 016 MANULE Not available 7 05:01:07 biopsy skin shave (PROC) 2015 016 MANUEL Not available 7 05:01:08 cryosurger y (PROC) 2015 016 MANUEL Not available 7 05:01:08 cryosurger y (PROC) 2015 016 MANUEL Not available 7 05:01:07 Surgeries excision of lipoma (SURG) 2015 016 DBA_PATCH_ [id number] Not available 6 04:08:37 Imaging US, abdominal aorta 2015 016 MANUEL Not available 7 05:36:43 MRI, shoulder 2014 015 surban Not available 5 15:56:02 Medication Orders lisinopril 10 mg tablet 2015 016 DBA_PATCH_ [id number] [facility] [employer] [facility] [address] [place], [address], 6 04:08:37 econazole nitrate 1 % topical cream 2014 015 INTERFACE [facility] [employer] [address] [place], [address], 5 15:03:56 Medrol (Naresh) 4 mg tablets in a dose pack 2014 015 INTERFACE [facility] [employer] [address] [place], [address], 5 15:03:05 Voltaren 1 % topical gel 2014 015 paula [facility]., [address] [place], [address], 5 22:14:48 Patient TargetsNo targets recorded. Patient Instructions Encounter Date Encounter Id Patient Instructions Last Modified By Organization Details Last Modified Time 12/31/2014 [id number] shoulder pain: care instructions jfretz Not available 01/10/2015 22:14:48 RTC for Tx of AKs. jfretz Not available 01/10/2015 22:14:48 Pt. will check o n date of last colonoscopy. Call or RTC if no better in 2 weeks. RTC sooner if symptoms worsen and pending results of testing. 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 Results Created Date Observation Date Name Description Value Unit Range Abnormal Flag Note LastModifiedBy Organization Detail LastModifiedTime 01/02/20 15 01/07/2015 lipid panel , serum cholesterol, total 211 mg/dL 125-20 0 high Not Available [facility] [address], [address], 01/07/2015 02:19:22 01/02/20 15 01/07/2015 lipid panel , serum HDL cholesterol 40 mg/dL > or = 40 normal Not Available [facility] [address], [address], 01/07/2015 02:19:22 01/02/2001/07/2015 lipid panel , serum triglyceride s 138 mg/dL <150 normal Not Available [facility] [place] [facility] [address], [place], [address], 01/07/2015 02:19:22 01/02/2001/07/2015 lipid panel , serum LDL-choleste rol 143 mg/dL _(eliseo c) <130 high Charles able range <100 mg/dL for patie nts with CHD or diabe miguel and <70 mg/dL for diabe tic patie nts with known heart disea se. Not Available [facility] [place] [facility] [address], [place], [address], 01/07/2015 02:19:22 01/02/2001/07/2015 lipid panel , serum chol/HDLC ratio 5.3 (calc ) < or = 5.0 high Not Available [facility] [place] [facility] [address], [place], [address], 01/07/2015 02:19:22 01/02/2001/07/2015 lipid panel , serum non HDL cholesterol 171 mg/dL _(eliseo c) high Targe t for non-H DL thea stero l is 30 mg/dL highe r than LDL thea stero l targe t. Not Available [facility] [place] [facility] [address], [place], [address], 01/07/2015 02:19:22 01/02/2001/07/2015 CMP, serum or plasm a glucose 91 mg/dL 65-99 normal Fasti ng refer ence inter karl Not Available [facility] [place] [facility] [address], [place], [address], 01/07/2015 02:19:23 01/02/2001/07/2015 CMP, serum or plasm a urea nitrogen (BUN) 12 mg/dL 7-25 normal Not Available [facility] [place] [facility] [address], [address], 01/07/2015 02:19:23 01/02/2001/07/2015 CMP, serum or plasm a creatinine 1.15 mg/dL 0.70-1 .25 normal For patie nts >49 years of age, the refer ence limit for Creat inine is appro ximat ayaan 13% highe r for peopl e ident ified as Afric an-Am esteban n. Not Available [facility] [place] [facility] [address], [address], 01/07/2015 02:19:23 01/02/2001/07/2015 CMP, serum or plasm a eGFR non-afr. israeli 66 mL/mi n/1.7 3m2 > or = 60 normal Not Available [facility] [place] [facility] [address], [place], [address], 01/07/2015 02:19:23 01/02/20 15 01/07/2015 CMP, serum or plasm a eGFR 77 mL/mi n/1.7 3m2 > or = 60 normal Not Available [facility] [place] [facility] [address], [address], 01/07/2015 02:19:23 01/02/20 15 01/07/2015 CMP, serum or plasm a BUN/creatini ne ratio NOT APPLIC ABLE (calc ) 6-22 Not Available [facility] [address] [place] [address], [address], 01/07/2015 02:19:23 01/02/2001/07/2015 CMP, serum or plasm a sodium 141 mmol/ L 135-14 6 normal Not Available [facility] [address], [address], 01/07/2015 02:19:23 01/02/2001/07/2015 CMP, serum or plasm a potassium 4.0 mmol/ L 3.5-5. 3 normal Not Available [facility] [address] [place], [place], [address], 01/07/2015 02:19:23 01/02/2001/07/2015 CMP, serum or plasm a chloride 106 mmol/ L 98-110 normal Not Available [facility] [address] [place], [place], [address], 01/07/2015 02:19:01/02/2001/07/2015 CMP, serum or plasm a carbon dioxide 28 mmol/ L 19-30 normal Not Available [facility] [address] [place], [place], [address], 01/07/2015 02:19:01/02/2001/07/2015 CMP, serum or plasm a calcium 9.2 mg/dL 8.6-10 .3 normal Not Available [facility] [address] [place], [place], [address], 01/07/2015 02:19:01/02/2001/07/2015 CMP, serum or plasm a protein, total 6.4 g/dL 6.1-8. 1 normal Not Available [facility] [address] [place], [place], [address], 01/07/2015 02:19:23 01/02/2001/07/2015 CMP, serum or plasm a albumin 4.4 g/dL 3.6-5. 1 normal Not Available [facility] [address] [place], [place], [address], 01/07/2015 02:19:23 01/02/2001/07/2015 CMP, serum or plasm a globulin 2.0 g/dL_ (calc ) 1.9-3. 7 normal Not Available [facility] [address], [address], 01/07/2015 02:19:23 01/02/20 15 01/07/2015 CMP, serum or plasm a albumin/glob ulin ratio 2.2 (calc ) 1.0-2. 5 normal Not Available [address], [address], 01/07/2015 02:19:23 01/02/2001/07/2015 CMP, serum or plasm a bilirubin, total 1.0 mg/dL 0.2-1. 2 normal Not Available [address], [place], [address], 01/07/2015 02:19:23 01/02/2001/07/2015 CMP, serum or plasm a alkaline phosphatase 75 U/L 40-115 normal Not Available [facility] t [address], [place], [address], 01/07/2015 02:19:23 01/02/2001/07/2015 CMP, serum or plasm a AST 17 U/L 10-35 normal Not Available [address], [place], [address], 01/07/2015 02:19:23 01/02/2001/07/2015 CMP, serum or plasm a ALT 17 U/L 9-46 normal Not Available [address], [address], 01/07/2015 02:19:23 01/02/2001/07/2015 eryth rocyt e sedim entat ion rate by leo fallon metho d sed rate by modified westergren 2 mm/h < or = 20 normal Not Available [facility] [place] [facility] [address], [place], [address], 01/07/2015 02:19:23 01/02/20 15 01/07/2015 CBC w/ auto diff white blood cell count 5.1 thous and/u L 3.8-10 .8 normal Not Available [facility] [place] [facility] [address], [place], [address], 01/07/2015 02:19:23 01/02/2001/07/2015 CBC w/ auto diff red blood cell count 5.18 mt on/uL 4.20-5 .80 normal Not Available [facility] [place] [facility] [address], [place], [address], 01/07/2015 02:19:23 01/02/20 15 01/07/2015 CBC w/ auto diff hemoglobin 16.2 g/dL 13.2-1 7.1 normal Not Available [facility] [place] [facility] [address], [place], [address], 01/07/2015 02:19:23 01/02/20 15 01/07/2015 CBC w/ auto diff hematocrit 47.8 % 38.5-5 0.0 normal Not Available [facility] [address], [place], [address], 01/07/2015 02:19:23 01/02/20 15 01/07/2015 CBC w/ auto diff MCV 92.2 fL 80.0-1 00.0 normal Not Available [facility] [address], [place], [address], 01/07/2015 02:19:23 01/02/20 15 01/07/2015 CBC w/ auto diff MCH 31.2 pg 27.0-3 3.0 normal Not Available [facility] [place] [facility] [address], [place], [address], 01/07/2015 02:19:23 01/02/20 15 01/07/2015 CBC w/ auto diff MCHC 33.8 g/dL 32.0-3 6.0 normal Not Available [facility] [place] [facility] [address], [place], [address], 01/07/2015 02:19:23 01/02/20 15 01/07/2015 CBC w/ auto diff RDW 13.2 % 11.0-1 5.0 normal Not Available [facility] [place] [facility] [address], [place], [address], 01/07/2015 02:19:23 01/02/20 15 01/07/2015 CBC w/ auto diff platelet count 178 thous and/u L 140-40 0 normal Not Available [facility] [place] [facility] [address], [place], [address], 01/07/2015 02:19:23 01/02/20 15 01/07/2015 CBC w/ auto diff MPV 9.4 fL 7.5-11 .5 normal Not Available [facility] [place] [facility] [address], [place], [address], 01/07/2015 02:19:23 01/02/20 15 01/07/2015 CBC w/ auto diff absolute neutrophils 3218 cells /uL 1500-7 800 normal Not Available [facility] [place] [facility] [address], [place], [address], 01/07/2015 02:19:23 01/02/2001/07/2015 CBC w/ auto diff absolute lymphocytes 1464 cells /uL 850-39 00 normal Not Available [facility] [place] [facility] [address], [place], [address], 01/07/2015 02:19:23 01/02/20 15 01/07/2015 CBC w/ auto diff absolute monocytes 321 cells /uL 200-95 0 normal Not Available [facility] [place] [facility] [address], [place], [address], 01/07/2015 02:19:23 01/02/20 15 01/07/2015 CBC w/ auto diff absolute eosinophils 77 cells /uL 15-500 normal Not Available [facility] [place] [facility] [address], [place], [address], 01/07/2015 02:19:23 01/02/20 15 01/07/2015 CBC w/ auto diff absolute basophils 20 cells /uL 0-200 normal Not Available [facility] [place] [facility] [address], [place], [address], 01/07/2015 02:19:23 01/02/20 15 01/07/2015 CBC w/ auto diff neutrophils 63.1 % normal Not Available [facility] [place] [facility] [address], [place], [address], 01/07/2015 02:19:23 01/02/20 15 01/07/2015 CBC w/ auto diff lymphocytes 28.7 % normal Not Available [facility] [place] [facility] [address], [place], [address], 01/07/2015 02:19:23 01/02/2001/07/2015 CBC w/ auto diff monocytes 6.3 % normal Not Available [facility] [place] [facility] [address], [place], [address], 01/07/2015 02:19:23 01/02/20 15 01/07/2015 CBC w/ auto diff eosinophils 1.5 % normal Not Available [facility] [place] [facility] [address], [place], [address], 01/07/2015 02:19:23 01/02/2001/07/2015 CBC w/ auto diff basophils 0.4 % normal Not Available [facility] [place] [facility] [address], [address], 01/07/2015 02:19:23 01/02/2001/07/2015 TSH, serum or plasm a TSH 2.33 mIU/L 0.40-4 .50 normal Not Available [facility] [place] [facility] [address], [address], 01/07/2015 02:19:24 01/02/2001/07/2015 PSA, serum or plasm a PSA, total 8.2 NG/mL < or = 4.0 high This test was perfo rmed using the [employer] chemi lumin escen t metho d. Value s obtai la from diffe rent assay metho ds canno t be used inter sarabia eably . PSA level s, regar dless of value , shoul d not be inter prete d as absol misa evide nce of the prese nce or absen ce of disea se. Not Available [facility] [place] [facility] [address], [address], 01/07/2015 02:19:24 01/02/2001/07/2015 vitam in D, 25-hy droxy , total , serum vitamin D,25-oh,tota l,ia 35 NG/mL 30-100 normal Vitam in D Statu s 25-OH Vitam in D: Defic iency : <20 ng/mL Insuf ficie ncy: 20 - 29 ng/mL Optim al: > or = 30 ng/mL For 25-OH Vitam in D testi ng on patie nts on D2-bishop pplem entat ion and patie nts for whom quant itati on of D2 and D3 fract ions is requi red, the [facility] Assur eD(TM ) 25-OH VIT D, (D2,D 3), LC/MS /MS is recom corby d: order code 25353 (sd ents >2yrs ). For more infor chandni tineo on this test, go to: http: //mahesh friedman ics.c om/fa q/FAQ 163 Effec tive December 22, the test order code 50490 , used prior to December 22, for LC/MS /MS, will be trans ition ed to a caref ully- selec sarika immun oassa y metho dolog y. The new immun oassa y has passe d CDC stand ardiz ation certi ficat ion and provi mehreen high quali ty quant itati ve resul ts that are tied back to stand ards from the NIST. For those patie nts for whom LC/MS /MS testi ng is appro priat e, pleas e utili ze test code 98706 . When LC/MS /MS is the chose n assay , utili ze test code 25981 for patie nts > or = 3 years of age, patie nts who are on D2 suppl ement ation , and patie nts for whom a separ ate D2 and D3 measu remen t is requi red. For patie nts <3 years of age, test code 80459 shoul d be used. Impor tant Note Anthony duncan Custo m Panel s With 25-Hy droxy vitam in D: If you curre ntly order vitam in D testi ng as part of a custo m panel , the LC/MS /MS vitam in D test will be maint ained in your panel after 2014. If you would like to repla ce the test in your panel with the new immun oassa y, or have any quest ions anthony duncan the trans ition of the 12063 test code, pleas e conta ct your local [facility] sales repre senta tive. Not Available [facility] [place] [facility] [address] [place], [place], [address], 01/07/2015 02:19:24 01/02/20 15 01/07/2015 testo stero ne, free + total , serum testosterone , total, lc/MS/MS 511 NG/dL 250-11 00 Males : Men with clini fredrick signi fican t hypog onada l sympt oms and testo stero ne value s repea tedly in the range of the 200-3 00 ng/dL or less, may benef it from testo stero ne treat ment after adequ ate risk and benef its couns eling . Not Available [facility] [place] [facility] [address], [place], [address], 01/07/2015 02:19:24 01/02/2001/07/2015 testo stero ne, free + total , serum free testosterone 86.5 pg/mL 35.0-1 55.0 Not Available [facility] [place] [facility] [address], [place], [address], 01/07/2015 02:19:24 03/01/20 16 03/02/2016 lipid panel , serum cholesterol, total 208 mg/dL 125-20 0 high Not Available [facility] [place] [facility] [address] [facility], [place], [address], 03/02/2016 04:38:54 03/01/2003/02/2016 lipid panel , serum HDL cholesterol 40 mg/dL > or = 40 normal Not Available [facility] [place] [facility] [address] [place], [address], 03/02/2016 04:38:54 03/01/2003/02/2016 lipid panel , serum triglyceride s 102 mg/dL <150 normal Not Available [facility] [place] [facility] [address] [facility], [place], [address], 03/02/2016 04:38:54 03/01/2003/02/2016 lipid panel , serum LDL-choleste rol 148 mg/dL _(eliseo c) <130 high Charles able range <100 mg/dL for patie nts with CHD or diabe miguel and <70 mg/dL for diabe tic patie nts with known heart disea se. Not Available [facility] [place] [facility] [address] [place], [address], 03/02/2016 04:38:54 03/01/20 16 03/02/2016 lipid panel , serum chol/HDLC ratio 5.2 (calc ) < or = 5.0 high Not Available [facility] [place] [facility] [address] [place], [address], 03/02/2016 04:38:54 03/01/20 16 03/02/2016 lipid panel , serum non HDL cholesterol 168 mg/dL _(eliseo c) high Targe t for non-H DL thea stero l is 30 mg/dL highe r than LDL thea stero l targe t. Not Available [facility] [place] [facility] [address] [place], [address], 03/02/2016 04:38:54 03/01/20 16 03/02/2016 CMP, serum or plasm a glucose 98 mg/dL 65-99 normal Fasti ng refer ence inter karl Not Available [facility] [place] [facility] [address] [place], [address], 03/02/2016 04:38:54 03/01/2003/02/2016 CMP, serum or plasm a urea nitrogen (BUN) 13 mg/dL 7-25 normal Not Available [facility] [place] [facility] [address] [place], [address], 03/02/2016 04:38:54 03/01/2003/02/2016 CMP, serum or plasm a creatinine 1.22 mg/dL 0.70-1 .25 normal For patie nts >49 years of age, the refer ence limit for Creat inine is appro ximat ayaan 13% highe r for peopl e ident ified as Afric an-Am esteban n. Not Available [facility] [place] [facility] [address] [place], [address], 03/02/2016 04:38:54 03/01/20 03/02/2016 CMP, serum or plasm a eGFR non-afr. israeli 61 mL/mi n/1.7 3m2 > or = 60 normal Not Available [facility] [place] [facility] [address] [facility] [place], [address], 03/02/2016 04:38:54 03/01/20 16 03/02/2016 CMP, serum or plasm a eGFR 71 mL/mi n/1.7 3m2 > or = 60 normal Not Available [facility] [address] [facility] [place], [address], 03/02/2016 04:38:54 03/01/20 16 03/02/2016 CMP, serum or plasm a BUN/creatini ne ratio NOT APPLIC ABLE (calc ) 6-22 Not Available [facility] [place], [address], 03/02/2016 04:38:54 03/01/20 16 03/02/2016 CMP, serum or plasm a sodium 143 mmol/ L 135-14 6 normal Not Available [facility] [address] [facility] [place], [address], 03/02/2016 04:38:54 03/01/20 16 03/02/2016 CMP, serum or plasm a potassium 4.9 mmol/ L 3.5-5. 3 normal Not Available [facility] [facility] [place], [address], 03/02/2016 04:38:54 03/01/20 16 03/02/2016 CMP, serum or plasm a chloride 107 mmol/ L 98-110 normal Not Available [facility] [address] [facility] [place], [address], 03/02/2016 04:38:54 03/01/20 16 03/02/2016 CMP, serum or plasm a carbon dioxide 30 mmol/ L 19-30 normal Not Available [facility] [address] [place], [address], 03/02/2016 04:38:54 03/01/20 16 03/02/2016 CMP, serum or plasm a calcium 9.4 mg/dL 8.6-10 .3 normal Not Available [facility] [address] [place], [address], 03/02/2016 04:38:54 03/01/20 16 03/02/2016 CMP, serum or plasm a protein, total 6.5 g/dL 6.1-8. 1 normal Not Available [facility] [address] [place], [address], 03/02/2016 04:38:54 03/01/20 16 03/02/2016 CMP, serum or plasm a albumin 4.4 g/dL 3.6-5. 1 normal Not Available [facility] [address] [place], [address], 03/02/2016 04:38:54 03/01/2003/02/2016 CMP, serum or plasm a globulin 2.1 g/dL_ (calc ) 1.9-3. 7 normal Not Available [facility] [address]danielleDelta [facility] [place], [address], 03/02/2016 04:38:54 03/01/20 16 03/02/2016 CMP, serum or plasm a albumin/glob ulin ratio 2.1 (calc ) 1.0-2. 5 normal Not Available [facility] [address] [place], [place] [address], [address], 03/02/2016 04:38:54 03/01/20 16 03/02/2016 CMP, serum or plasm a bilirubin, total 1.1 mg/dL 0.2-1. 2 normal Not Available [facility] [address] [place], [address], 03/02/2016 04:38:54 03/01/20 16 03/02/2016 CMP, serum or plasm a alkaline phosphatase 85 U/L 40-115 normal Not Available [facility] [employer] [facility] [address] [place], [address], 03/02/2016 04:38:54 03/01/20 16 03/02/2016 CMP, serum or plasm a AST 14 U/L 10-35 normal Not Available [facility] [employer] [facility] [place], [address], 03/02/2016 04:38:54 03/01/20 16 03/02/2016 CMP, serum or plasm a ALT 15 U/L 9-46 normal Not Available [facility] 11 [facility] [address] [place], [address], 03/02/2016 04:38:54 03/01/20 16 03/02/2016 CBC w/ auto diff white blood cell count 6.1 thous and/u L 3.8-10 .8 normal Not Available [facility] 11 [facility] [address] [place], [place] [address], [address], 03/02/2016 04:38:54 03/01/20 16 03/02/2016 CBC w/ auto diff red blood cell count 5.28 mt on/uL 4.20-5 .80 normal Not Available [facility] 11 [facility] [place], [address], 03/02/2016 04:38:54 03/01/20 16 03/02/2016 CBC w/ auto diff hemoglobin 16.1 g/dL 13.2-1 7.1 normal Not Available [facility] [place], [address], 03/02/2016 04:38:54 03/01/20 16 03/02/2016 CBC w/ auto diff hematocrit 49.7 % 38.5-5 0.0 normal Not Available [facility] [address] [place], [address], 03/02/2016 04:38:54 03/01/20 16 03/02/2016 CBC w/ auto diff MCV 94.2 fL 80.0-1 00.0 normal Not Available [facility] [address] [place], [address], 03/02/2016 04:38:54 03/01/20 16 03/02/2016 CBC w/ auto diff MCH 30.5 pg 27.0-3 3.0 normal Not Available [facility] [address] [place], [address], 03/02/2016 04:38:54 03/01/20 16 03/02/2016 CBC w/ auto diff MCHC 32.3 g/dL 32.0-3 6.0 normal Not Available [facility] [address] [place], [address], 03/02/2016 04:38:54 03/01/2003/02/2016 CBC w/ auto diff RDW 13.4 % 11.0-1 5.0 normal Not Available [facility] [address] [place], [address], 03/02/2016 04:38:54 03/01/20 16 03/02/2016 CBC w/ auto diff platelet count 173 thous and/u L 140-40 0 normal Not Available [facility] [address] [place], [address], 03/02/2016 04:38:54 03/01/2003/02/2016 CBC w/ auto diff MPV 9.7 fL 7.5-11 .5 normal Not Available [facility] [address] [place], [address], 03/02/2016 04:38:54 03/01/2003/02/2016 CBC w/ auto diff absolute neutrophils 4044 cells /uL 1500-7 800 normal Not Available [facility] [address], [place], [address], 03/02/2016 04:38:54 03/01/20 16 03/02/2016 CBC w/ auto diff absolute lymphocytes 1604 cells /uL 850-39 00 normal Not Available [facility] [place] [facility] [address], [place], [address], 03/02/2016 04:38:54 03/01/20 16 03/02/2016 CBC w/ auto diff absolute monocytes 390 cells /uL 200-95 0 normal Not Available [facility] [place] [facility] [address], [place], [address], 03/02/2016 04:38:54 03/01/20 16 03/02/2016 CBC w/ auto diff absolute eosinophils 43 cells /uL 15-500 normal Not Available [facility] [place] [facility] [address], [place], [address], 03/02/2016 04:38:54 03/01/20 16 03/02/2016 CBC w/ auto diff absolute basophils 18 cells /uL 0-200 normal Not Available [facility] [place] [facility] [address], [place], [address], 03/02/2016 04:38:54 03/01/2003/02/2016 CBC w/ auto diff neutrophils 66.3 % normal Not Available [facility] [place] [facility] [address], [place], [address], 03/02/2016 04:38:54 03/01/2003/02/2016 CBC w/ auto diff lymphocytes 26.3 % normal Not Available [facility] [place] [facility] [address], [place], [address], 03/02/2016 04:38:54 03/01/2003/02/2016 CBC w/ auto diff monocytes 6.4 % normal Not Available [facility] [place] [facility] [address] [place], [address], 03/02/2016 04:38:54 03/01/20 16 03/02/2016 CBC w/ auto diff eosinophils 0.7 % normal Not Available [facility] [place] [facility] [address] [place], [address], 03/02/2016 04:38:54 03/01/20 16 03/02/2016 CBC w/ auto diff basophils 0.3 % normal Not Available [facility] [place] [facility] [address] [place], [address], 03/02/2016 04:38:54 03/01/20 16 03/02/2016 PSA, serum or plasm a PSA, total 8.7 NG/mL < or = 4.0 high This test was perfo rmed using the [employer] chemi lumin escen t metho d. Value s obtai la from diffe rent assay metho ds canno t be used inter sarabia eably . PSA level s, regar dless of value , shoul d not be inter prete d as absol misa evide nce of the prese nce or absen ce of disea se. Not Available [facility] [place] [facility] [address] [place], [address], 03/02/2016 04:38:55 01/16/20 15 01/14/2015 MRI, shoul sindhu No observ ation record ed. [email or web address] [facility] [address], [place], [address], 03/05/2015 13:06:06 04/04/20 16 03/30/2016 US, keenan vázquez, reginaldo id arter y No observ ation record ed. [email or web address] Not Available 2015 00:38:38 04/15/20 16 04/13/2016 US, abdom inal aorta No observ ation record ed. [email or web address] Not Available 2015 13:08:24 Result Notes None recorded. Problems Name Problem SNOMED Code Status Onset Date Resolution Date Notes Provider Name and Address Organization Details Recorded Time Essential hypertension 29261858 [place] [address] , [place], [address], [place] [facility] 5 22:14:48 Fatigue 57466689 [place] [address] [address] , [place], [address], [place] [facility] 5 22:14:48 Benign prostatic hyperplasia 444000002 [place] [address] [address] , [place], [address], [place] [facility] 4 15:09:15 Dyslipidemia 852491817 [place] [address] [address] , [place], [address], [place] [facility] 5 22:14:48 Pain of shoulder region 77940698 [place] [address] [address] , [place], [address], [place] [facility] 5 22:14:48 Disorder of tendon of biceps 556030452 [place] [address] [address] , [place], [address], [place] [facility] 5 22:18:06 Tinea pedis 8080933 [place] [address] [address] , [place], [address], [place] [facility] 5 14:53:38 Bursitis 26653639 [place] [address] [address] , [place], [address], [place] [facility] 5 14:53:38 Problem Notes None recorded. Medical Equipment None Reported. Allergies No known drug allergies Medications Name Sig Start Date Stop Date Status Note LastModified by Organization Details LastModified Time Prescript ion - New active new prescrip tion fax form Not Available Not Available Not Available doxycycli ne hyclate 100 mg capsule active Not Available Not Available Not Available sulfameth oxazole 800 mg-trimet hoprim 160 mg tablet active Not Available Not Available Not Available econazole nitrate 1 % topical cream APPLY TO THE AFFECTED AND SURROUND ING AREAS OF SKIN BY TOPICAL ROUTE 2 TIMES PER DAY active Not Available Not Available No t Available WelChol 625 mg tablet active Not Available Not Available Not Available lisinopri l 10 mg tablet Take 1 tablet every day by oral route for 365 days. active Not Available Not Available No t Available methylpre dnisolone 4 mg tablets in a dose pack Take by oral route. Take as directed . 02/18 completed Not Available Not Available Not Available naproxen 500 mg tablet active Not Available Not Available Not Available metaxalon e 800 mg tablet active Not Available Not Available Not Available omega-3 acid ethyl esters 1 gram capsule Take 4 capsules every day by oral route for 90 days. active Not Available Not Available No t Available hydrocodo ne 5 mg-acetam inophen 300 mg tablet active Not Available Not Available Not Available Voltaren 1 % topical gel Apply 1 g 4 times a day by topical route for 30 days. active Not Available Not Available No t Available Vitals Date Recorded Body temperature Body height Body mass index (BMI) Body weight Systolic And Diastolic Provider Name and Address Organization Details Last Updated DateTime 12/31/2014 98.7 [degF] 185.42 cm 24.9 kg/m2 82122.9 5793 g 120/78 mm[Hg] Breanne Thomas [place] Cole Peck, [facility] 5 13:23:18 Date Recorded Body height Body weight Body mass index (BMI) Heart rate Oxygen saturation Oxygen saturation in Arterial blood by Pulse oximetry Body temperature Systolic And Diastolic Provider Name and Address Organization Details Last Updated DateTime 6 185.42 cm 91361.7 4 g 25.3 kg/m2 82 /min 96 % 96 % 98.5 [degF] 130/78 mm[Hg] Lisa Johnson [place] Cole Peck, [facility] 6 13:39:56 Date Recorded Body height Body weight Body mass index (BMI) Body temperature Oxygen saturation Oxygen saturation in Arterial blood by Pulse oximetry Heart rate Systolic And Diastolic Provider Name and Address Organization Details Last Updated DateTime 6 185.42 cm 61981.3 3 g 25.5 kg/m2 97.5 [degF] 98 % 98 % 67 /min 128/84 mm[Hg] Lisa Peck, [facility] 6 11:24:29 Date Recorded Body height Body weight Body mass index (BMI) Body temperature Systolic And Diastolic Provider Name and Address Organization Details Last Updated DateTime 03/08/2016 185.42 cm 99615.1 g 25.9 kg/m2 98.5 [degF] 124/70 mm[Hg] Lisa Peck, [facility] 6 16:16:58 Date Recorded Body height Body mass index (BMI) Body weight Oxygen saturation Oxygen saturation in Arterial blood by Pulse oximetry Body temperature Heart rate Systolic And Diastolic Provider Name and Address Organization Details Last Updated DateTime 5 185.42 cm 25.1 kg/m2 92286.5 503 g 98 % 98 % 97.7 [degF] 79 /min 110/80 mm[Hg] Lisa Peck, [facility] 5 14:23:30 Social History Question Answer Notes LastModified by [email or web address] Details LastModified Time Tobacco Smoking Status Never Smoker Lynette christianson, DONELL Peck, [facility] 03/11/2014 17:03:28 Do You Have An Advance Directive? No Information not available 03/04/2016 What Is Your Level Of Caffeine Consumption? Moderate Information not available 03/04/2016 How Much Tobacco Do You Chew? None Information not available 03/04/2016 Which Illicit Or Recreational Drugs Have You Used? None Information not available 03/04/2016 Single Or Multi-level Home/work? Single Level Home Information not available 03/04/2016 Live Alone Or With Others? With Others Information not available 03/04/2016 Marital Status [email or web address] Informatio n not available 03/04/2016 Sex: Unknown Functional Status Question Answer Note LastModified by Pathizat ion Details LastModified Time What is your level of alcohol consumption? None Information not available 03/04/2016 What is your occupation? retired Information not available 03/04/2016 What is your exercise level? Occasional Information not available 03/04/2016 Mental Status None recorded. Family History Nothing Reported. Medical History Condition Response Gout N Kidney Stones N Blood Diseases N Ear or Hearing Problems N Hyperthyroidism N Allergies (seasonal/food) N Depression N Hypothyroidism N Developmental or Behavioral Disorders N Skin Problems N Anemia N Constipation N Mental Illness N Anxiety Disorder N Diabetes N Muscle, Joint, or Bone Problems N Vision or Eye Problems N Arthritis N Seizures/Epilepsy N Head Injury/Concussion N Heart Murmur N Tuberculosis N Hypertension (high blood pressure) N Cancer N Stroke N Diverticulitis N Asthma N COPD/Emphysema N ADHD N Bladder or Kidney Problems N Reflux/GERD N Hospital Admission other than N High Cholesterol N Liver Disease N Heart Disease N Pulmonary Embolism N Fibromyalgia N Headaches N Chicken Pox N Osteoporosis N Kidney Disease N Immunizations Vaccine Type Date Status Note Provider Nam e and Address Organization Details Recorded Time pneumococcal polysaccharide PPV23 6 completed Not Available [facility] 09/07/2019 02:16:56 Past Encounters Encounter ID Performer Location Encounter Start Date Encounter Closed Date Diagnosis/Indication Diagnosis SNOMED-CT Code Diagnosis ICD10 Code Diagnosis Note [id number] Denise Peck DO [facility] [address] [place] [address] 03/11/2014 16:07:01 03/11/2014 18:35:55 Essential hypertension 07220717 Fatigue 82809848 Benign pro static hyperplasia 975498378 Dyslipidemia 417642814 [id number] Denise DO Liv [facility] [address] [place] [address] 04/01/2014 16:10:35 04/01/2014 17:52:52 [id number] Denise Peck DO [facility] [address] [place] [address] 12/31/2014 12:53:35 12/31/2014 14:07:41 Pain of shoulder region 43158014 Fatigue 87089742 Essential hypertension 96182506 Dyslipidemia 506479059 [id number] Denise Peck DO [facility] [address] [place] [address] 03/31/2015 13:54:18 03/31/2015 14:54:40 Bursitis 99023302 elbow traumatic Tinea pedis 2343232 [id number] DO DENISE [facility] [address] [place] [address] 02/19/2016 13:34:09 02/19/2016 14:03:21 Essential hypertension 77678722 I10 Hyperlipidemia 16822869 E78.0 Screening for malignant neoplasm of prostate 204591905 Z12.5 [id number] DO DENISE Stewart [facility] [address] [place] [address] 03/04/2016 10:23:38 03/04/2016 12:20:01 Adult health examination 277746041 Z00.00 Administra tion of pneumococcal vaccine 32093631 Z23 Screening for disorder 725171394 Z13.89 [id number] DO DENISE Stewart [facility] [address] [place] [address] 03/08/2016 15:25:25 03/08/2016 16:51:27 Multiple actinic keratoses 298547463 L57.0 left ear x 3, back x 1, left forehead x 1 Inflamed s eborrheic keratosis 826025118 L82.0 8mm x 6mm, right neck Lipoma of back 210920905 D17.1 8mm x 8mm Health Concerns Section Related Observation LastModified by Organization Detai ls LastModified Time None Recorded Concern Status LastModified by Organization Details LastModified Time None Recorded Advance Directives Directive N: Payers Insurance Date Sequence Insurance Name Policy Number Policy Peters Covered Member ID Peters Member ID Guarantor Name 07/01/2016 2 [facility] [id number] Flynnserena Colunga [id number] Flynn Colunga 03/20/2017 1 [place] Flynn Colunga [id number] Flynn Colunga Notes Date Note Type Note Provider Name and Address Organization Details Recorded Time 5 text/html Musculoskeletal PainReported by PatientHPIFor quality, patient reportssharp. For location, patient reportsright arm. For severity, patient reportssame. For duration, patient reportspresent for 1-6 months. For context, patient reportsunusual activity (patient relates he was helping put on a roof in [place] and his arm didn't hurt until he stopped working.). For alleviating factors, patient reportsrest(he had a shot in his right shoulder then naprosyn, and no pain for a month. stopped the naprosyn and the pain returned.). For aggravating factors, patient reportsmovement/positioning (bothers him to lie on it at night). For adl (activities of daily living), patient reportsimprove with medication.Feels run down again. Was in bed 10 hours [place] [address] [place], [address], [facility] Denise Peck, [facility] 01/10/2015 22:15:05 5 text/html Musculoskeletal PainReported by PatientHPIFor location, patient reportspain is not radiatingandright arm(right arm bruised). For severity, patient reportsimproving. For duration, patient reportspresent <1 month(03/29/2015). For timing, patient reportssudden. 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 every time he puts ice on it it goes back down but the bruise is getting larger. no pain). For associated symptoms, patient reportsno fever,no weak limbs,no tingling,no numbness of the legs/feet, andon incontinence. For adl (activities of daily living), patient reportsimprove with medication. Sterling Palacio null, [place] Cole Peck, [facility] 08/23/2015 22:06:09 6 text/html HypertensionReported by PatientHPIFor alleviating factors, (gets more sleep). Skin LesionReported by PatientHPIFor location, [place] [address] [place], [address], [facility] Denise Peck, [facility] 03/23/2017 09:42:50 6 text/html Medicare Annual Wellness VisitReported by PatientSocial/Behavioral HistoryFor fracture risk, patient reportshistory of fractures (2 ribs in 1984; right wrist 52 years ago)but reportsno recent explained fracture,no sudden unexplained fractures, andno previous musculoskeletal injuries. For diet and nutrition, patient reportshealthy diet(does not keep track). For physical activity, patient reportsexercises on a regular basis,recent increase in physical activity, andgood physical condition(walks dogs twice a day).Mental Status:For depression risk, patient reportsnever feels sad, empty, or tearful,no loss of interest in activities,no significant changes in weight,no sleep disturbances or insomnia,no agitation,no loss of energy,no feelings of worthlessness or guilt,no thoughts of suicide,no history of depression, andno history of mood disorders. For orientation, patient reportsno disorientation to time,no disorientation to date, andno disorientation to place. For concentration and memory, patient reportsno decreased concentrating ability,no memory lapses or loss, anddoes not forget words. For speech/motor difficulties, patient reportsno speech difficulties,no difficulty expressing formulated concepts,no difficulty with fine manipulative tasks,no difficulty writing/copying,no slowed reaction time, anddoes not knock things over when trying to pick them up.Functional AbilityFor hearing, patient reportsloss of hearing: in both ears (in high and low notes secondary to work). For vision, patient reportsno vision problems. For activities of daily living, patient reportsable to bathe with limited or no assistance,able to contol urination and bowels,able to dress with limited or no assistance,able to feed self with limited or no assistance,able to get out of chair or bed with limited or no assistance,able to groom with limited or no assistance, andable to toilet with limited or no assistance. For instrumental activities of daily living, patient reportsable to do house work with limited or no assistance,able to grocery shop with limited or no assistance,able to manage medications with limited or no assistance,able to manage money with limited or no assistance,able to prepare meals with limited or no assistance, andable to use the phone with limited or no assistance. For falls risk assessment, patient reportsno frequent falls while walking,no fall in the past year,no fall since last visit, andno dizziness/vertigo. For home safety, patient reportsno unsafe ed hazzards,no unsafe stairs,no unsafe gas appliances,working smoke/co detectors,use of seatbelts,practicing 'safer sex',no vision or hearing loss while driving,has hand bars in the bathroom/shower, andgood lighting [place] [address] [place], [address], [facility] Denise Pe[facility] 03/23/2017 08:59:40 6 text/html Skin LesionReported by PatientHPIFor location, [facility] left side forehead, neck, & ear).ROS as [place] [address] [place], [address], [facility] Cole Peck[facility] 03/23/2017 08:57:35
--- OUTSIDE RECORDS SUMMARY | 2025-03-16 16:13 | XMS_ITS | Referral Summary ---
Author Organization [id number] ([facility] 03/10/2024) ([facility], and [place]) Address [address] [place] [address] Care Team Providers Care Meteorology Professor Name Role Phone Denise Peck DO Primary Care Provider [phone] Social History Tobacco Use Types Packs/Day Years [...] of Treatment Not on file Care Teams Meteorology Professor Relationship Specialty [place] [address] [place] [address] PCP - General 05/24/13
--- OUTSIDE RECORDS SUMMARY | 2025-03-16 16:13 | XMS_ITS | Encounter Summary ---
Author Organization [employer] ([facility] 03/10/2024) ([facility], and [place]) Address [address] [place] [address] Care Team Providers Care Hotel Desk Clerk Name Role Phone Unavailable Primary Care Provider Unavailabl e Encounter Details Date Type Department Care Team (Late st Contact Info) Description 04/05/1976 - 04/05/1976 11:59 PM EDT [facility] Social History Tobacco Use Types Packs/Day [...]
--- OUTSIDE RECORDS SUMMARY | 2025-03-16 16:13 | XMS_ITS | Data Portability ---
Author Organization 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 Plan of Treatment Reminders Order Date Submit Date Provider Last Modified By Organization Details Last Modified Time Details Appointments None recorded. Lab rf (rheumatoid factor) + anti-ccp abs, serum 2022 023 [facility], [address], [place], [address], 3 15:10:18 immunoglobu laina iga+igg+igm , quantitativ e, serum 2022 023 [email or web address] 5 [facility], [address], [place], [address], 3 14:04:54 igg, subclass 4, quantitativ e, serum 2022 023 MANUEL [facility], [address], [place], [address], 3 06:12:09 ige, total, serum 2022 023 [email or web address] 5 [facility], [address], [place], [address], 12/08/202 3 14:04:54 scleroderma (SCL-70) autoantibod ies, serum 2022 023 [email or web address] 5 [facility], [address], [place], [address], 3 14:04:54 CK (creatine kinase), total, serum 2022 023 [facility], [address], [place], [address], 3 16:56:08 aldolase, serum 2022 023 MANUEL [facility], [address], [place], [address], 3 06:12:08 ESR (erythrocyt e sedimentati on rate), blood 2022 023 [email or web address] 5 [facility], [address], [place], [address], 3 14:04:55 C-reactive protein, quantitativ e, serum or plasma 2022 023 5 [facility], [address], [place], [address], 3 14:04:55 anca panel, serum 2022 023 MANUEL [facility], [address], [place], [address], 3 15:09:59 payal-1 Ab, serum 2022 023 [email or web address] 5 [facility], [address], [place], [address], 3 14:04:55 sjogren antibody panel (ssa, ssb, ro, la), serum 2022 023 5 [facility], [address], [place], [address], 3 14:04:55 hypersensit ivity pneumonitis profile, serum 2022 023 [email or web address] 5 [facility], [address], [place], [address], 3 14:04:56 anti-dsdna Ab titer, serum 2022 023 [email or web address] 5 [facility], [address], [place], [address], 3 14:04:56 AURELIO (antinuclea r antibodies) panel, serum 2022 023 [id number] 5 [facility], [address], [place], [address], 3 14:04:56 glomerular basement membrane (gmb) igg Ab, serum 2022 023 [id number] 5 [facility], [address], [place], [address], 3 14:04:56 SCL-70 extractable nuclear IgG Ab, quantitativ e, serum 2022 023 [email or web address] 5 [facility], [address], [place], [address], 3 14:04:57 pm-scl Ab, serum 2022 023 [id number] 5 [facility], [address], [place], [address], 3 14:04:57 gia screen, serum 2022 023 [email or web address] 5 [facility], [address], [place], [address], 3 14:04:57 CMP, serum or plasma 2022 023 MANUEL [facility], [address], [place], [address], 3 16:56:06 unlisted lab - myositis specific 11 Ab panel 2022 023 [email or web address] 5 [facility], [address], [place], [address], 3 14:04:57 Referral None recorded. Procedures colonoscopy screening (PROC) 2023 024 [email or web address] [id number] Not available 5 10:25:57 pulmonary function test procedure (PROC) 2022 023 [email or web address] [facility], [address] [facility] [address], [place], [address], 3 15:03:21 Surgeries None recorded. Imaging PFT, complete 2024 026 [email or web address] Not available 5 11:29:17 PFT, complete - DIRECT REFERRAL FOR PFT ONLY!! 2022 025 MANUEL Peña MD, [address] [facility], [address], [place], [address], 5 10:55:56 CT, chest, w/o contrast - High-resolu tion thin-sectio n protocol with prone and expiratory images. Compare to priors.? Progressive phenotype? 2022 024 [email or web address] 5 [facility] ([facility]), [address], [place], [address], 4 10:05:38 Medication Orders Suflave 178.7 gram-7.3 gram-0.5 gram oral solution 12/10/ 2024 01/24/2 025 [facility], [address], [address], [place], [place], [id number], 5 10:58:38 Patient TargetsNo targets recorded. Patient InstructionsNo instructions recorded. Reason for Referral None Reported. Results Created Date Observation Date Name Description Value Unit Range Abnormal Flag Note LastModifiedBy Organization Detail LastModifiedTime 05/29/2005/29/2023 pulmo nary funct ion test proce dure (PROC ) pre fvc liter s Not Available [facility] [address] [place] [address] [place], [address], 05/22/2023 15:02:22 05/29/20 23 05/29/2023 pulmo nary funct ion test proce dure (PROC ) post fvc liter s Not Available [facility] [address] [place] [address] [place], [address], 05/22/2023 15:02:22 05/29/20 23 05/29/2023 pulmo nary funct ion test proce dure (PROC ) pre fev1 liter s Not Available [facility] [address] [place] [address] [place], [address], 05/22/2023 15:02:22 05/29/20 23 05/29/2023 pulmo nary funct ion test proce dure (PROC ) post fev1 liter s Not Available [facility] [address] [place] [address] [place], [address], 05/22/2023 15:02:22 05/29/20 23 05/29/2023 pulmo nary funct ion test proce dure (PROC ) pre fev1/fvc % Not Available [facility] [address] [place] [address] [place], [address], 05/22/2023 15:02:22 05/29/20 23 05/29/2023 pulmo nary funct ion test proce dure (PROC ) post fev1/fvc % Not Available [facility] [address] [place] [address] [place], [address], 05/22/2023 15:02:22 05/29/20 23 05/29/2023 pulmo nary funct ion test proce dure (PROC ) pre fef 25-75% L/sec Not Available [facility] [address] [place] [address] [place], [address], 05/22/2023 15:02:22 05/29/20 23 05/29/2023 pulmo nary funct ion test proce dure (PROC ) post fef 25-75% L/sec Not Available [facility] [address] [place] [address] [place], [address], 05/22/2023 15:02:22 05/29/20 23 05/29/2023 pulmo nary funct ion test proce dure (PROC ) pre mvv L/min Not Available [facility] [address] [place] [address] [place], [address], 05/22/2023 15:02:22 05/29/20 23 05/29/2023 pulmo nary funct ion test proce dure (PROC ) post mvv L/min Not Available [facility] [address] [place] [address] [place], [address], 05/22/2023 15:02:22 05/29/20 23 05/29/2023 pulmo nary funct ion test proce dure (PROC ) tlc liter s Not Available [facility] [address] [place] [address] [place], [address], 05/22/2023 15:02:22 05/29/20 23 05/29/2023 pulmo nary funct ion test proce dure (PROC ) frc N2 liter s Not Available [facility] [address] [address] [place], [address], 05/22/2023 15:02:22 05/29/20 23 05/29/2023 pulmo nary funct ion test proce dure (PROC ) RV liter s Not Available [facility] [address] [place] [address] [place], [address], 05/22/2023 15:02:22 05/29/20 23 05/29/2023 pulmo nary funct ion test proce dure (PROC ) RV/tlc % Not Available [facility] [address] [address] [place], [address], 05/22/2023 15:02:22 05/29/20 23 05/29/2023 pulmo nary funct ion test proce dure (PROC ) erv liter s Not Available [facility] [address] [address] [place], [address], 05/22/2023 15:02:22 05/29/20 23 05/29/2023 pulmo nary funct ion test proce dure (PROC ) dlco mL/mm Hg/mi n Not Available [facility] [address] [address] [place], [address], 05/22/2023 15:02:22 05/29/20 23 05/29/2023 pulmo nary funct ion test proce dure (PROC ) dlco/va mL/mm Hg/mi n Not Available [facility] [address] [address] [place], [address], 05/22/2023 15:02:22 07/03/20 23 07/03/2023 ERYTH ROCYT E SEDIM ENTAT ION RATE erythrocyte sedimentatio n rate 8 mm/HR 0-10 normal Not Available [facility] [address], [address] 07/03/2023 16:39:57 07/03/2007/03/2023 COMPR EHENS RICHARD METAB OLIC PANEL sodium 141 mEq/L 137-14 5 normal Not Available [facility] [address] [address], [place], [address] 07/03/2023 16:56:06 07/03/2007/03/2023 COMPR EHENS RICHARD METAB OLIC PANEL potassium,K 4.0 mEq/L 3.6-5. 0 normal Not Available [facility] [address], [address] 07/03/2023 16:56:06 07/03/20 23 07/03/2023 COMPR EHENS RICHARD METAB OLIC PANEL chloride 108 mEq/L 98-107 high Not Available [facility] [address], [address] 07/03/2023 16:56:06 07/03/20 23 07/03/2023 COMPR EHENS RICHARD METAB OLIC PANEL carbon dioxide 26 mEq/L 22-30 normal Not Available [facility] [address], [address] 07/03/2023 16:56:06 07/03/20 23 07/03/2023 COMPR EHENS RICHARD METAB OLIC PANEL anion gap 7 5-20 normal Not Available [facility] [address] [address], [place], [address] 07/03/2023 16:56:06 07/03/20 23 07/03/2023 COMPR EHENS RICHARD METAB OLIC PANEL blood urea nitrogen 19 mg/dL 9-20 normal Not Available [facility] [address], [address] 07/03/2023 16:56:06 07/03/20 23 07/03/2023 COMPR EHENS RICHARD METAB OLIC PANEL creatinine 1.2 mg/dL 0.7-1. 5 normal Not Available [facility] [address], [address] 07/03/2023 16:56:06 07/03/20 23 07/03/2023 COMPR EHENS RICHARD METAB OLIC PANEL creatinine clr calc pharmacy mL/mi n Unabl e to Calcu late CRCL, Ht and/o r Wt tatyana ng Not Available [facility] [address], [place], [address] 07/03/2023 16:56:06 07/03/20 23 07/03/2023 COMPR EHENS RICHARD METAB OLIC PANEL estimated glomerular filt rate 64 >=90 mL/min /1.73M 2 low Repor sarika eGFR is based on the CKD-E PI 2020 equat ion that does not use a race coeff trevor tShelly Dudleyit ional infor matjoel n can be found at: 09-3061 _icb_ egfr_ summa ry_fl yer5. pdf (miguel ey.or g) Not Available [facility] [address], [place], [address] 07/03/2023 16:56:06 07/03/20 23 07/03/2023 COMPR EHENS RICHARD METAB OLIC PANEL BUN/creatini ne ratio 15.8 ratio 7.0-25 .0 normal Not Available [facility] [address], [place], [address] 07/03/2023 16:56:06 07/03/20 23 07/03/2023 COMPR EHENS RICHARD METAB OLIC PANEL glucose 89 mg/dL 70-100 normal Not Available [facility] [address], [place], [address] 07/03/2023 16:56:06 07/03/20 23 07/03/2023 COMPR EHENS RICHARD METAB OLIC PANEL calcium 8.7 mg/dL 8.4-10 .2 normal Not Available [facility] [address], [place], [address] 07/03/2023 16:56:06 07/03/20 23 07/03/2023 COMPR EHENS RICHARD METAB OLIC PANEL bilirubin,to bill 0.8 mg/dL 0.2-1. 3 normal Not Available [facility] [address], [place], [address] 07/03/2023 16:56:06 07/03/20 23 07/03/2023 COMPR EHENS RICHARD METAB OLIC PANEL aspartate amino transferase 18 U/L 15-46 normal Not Available [facility] [address], [place], [address] 07/03/2023 16:56:06 07/03/20 23 07/03/2023 COMPR EHENS RICHARD METAB OLIC PANEL alanine aminotransfe rase 21 U/L 21-72 normal Not Available [facility] [address], [place], [address] 07/03/2023 16:56:06 07/03/20 23 07/03/2023 COMPR EHENS RICHARD METAB OLIC PANEL total protein 6.2 g/dL 6.3-8. 2 low Not Available [facility] [address] [facility] [address], [place], [address] 07/03/2023 16:56:06 07/03/20 23 07/03/2023 COMPR EHENS RICHARD METAB OLIC PANEL albumin level 3.6 g/dL 3.4-5. 0 normal Not Available [facility] [address] [facility] [address], [place], [address] 07/03/2023 16:56:06 07/03/20 23 07/03/2023 COMPR EHENS RICHARD METAB OLIC PANEL globulin 2.6 g/dL 2.4-3. 5 normal Not Available [facility] [address] [facility] [address], [place], [address] 07/03/2023 16:56:06 07/03/20 23 07/03/2023 COMPR EHENS RICHARD METAB OLIC PANEL albumin/glob ulin ratio 1.4 % 1.1-2. 2 normal Not Available [facility] [address] [facility] [address], [place], [address] 07/03/2023 16:56:06 07/03/20 23 07/03/2023 COMPR EHENS RICHARD METAB OLIC PANEL alkaline phosphatase 90 U/L 50-136 normal Not Available [facility] [address] [facility] [address], [place], [address] 07/03/2023 16:56:06 07/03/2007/03/2023 CREAT INE KINAS E TOTAL creatine kinase total 77 U/L 26-308 normal Not Available [facility] [address] [facility] [address], [place], [address] 07/03/2023 16:56:08 07/03/2007/03/2023 C-FISH CTIVE PROTE IN C-reactive protein 0.6 mg/L 0.0-3. 3 normal Not Available [facility] [address] [address], [place], [address] 07/03/2023 16:56:09 07/03/20 23 07/04/2023 ANTI- PM/SC L-100 AB (RDL) anti-pm/scl- 100 Ab (rdl) TNP units . Dupli kathy proce dure order ed. Negat richard: <20 Weak Posit richard: 20 - 39 Moder ate Posit richard: 40 - 80 Stron g Posit richard: >80 Perfo rmed at: [facility] [employer] [address] [place] [address] Lab Direc tor: Edison lam MD, Phone : [phone] Not Available [facility] [address] [address], [place], [address] 07/04/2023 07:10:17 07/03/20 23 07/04/[address] antibodies 0.3 ai 0.0-0. 9 Not Available [facility] [address] [address], [place], [address] 07/04/2023 15:10:17 07/03/20 23 07/04/2023 AURELIO nieto antibodies <0.2 ai 0.0-0. 9 Not Available [facility] [address] [address], [place], [address] 07/04/2023 15:10:17 07/03/20 23 07/04/2023 AURELIO antisclerode rma-70 antibodies <0.2 ai 0.0-0. 9 Not Available [facility] [address] [address], [place], [address] 07/04/2023 15:10:17 07/03/20 23 07/04/2023 AURELIO sjogren's anti-ss-A <0.2 ai 0.0-0. 9 Not Available [facility] [address] [address], [place], [address] 07/04/2023 15:10:17 07/03/20 23 07/04/2023 AURELIO sjogren's anti-ss-B <0.2 ai 0.0-0. 9 Not Available [facility] [address] [address], [place], [address] 07/04/2023 15:10:17 07/03/20 23 07/04/2023 AURELIO anti-payal-1 <0.2 ai 0.0-0. 9 Not Available [facility] [address] [address], [place], [address] 07/04/2023 15:10:17 07/03/20 23 07/04/2023 RHEUM ATOID ARTHR ITIS PROFI LE RA latex turbid. <10.0 IU/mL <14.0 Not Available [facility] [address] [address], [place], [address] 07/04/2023 15:10:18 07/03/20 23 07/04/2023 RHEUM ATOID ARTHR ITIS PROFI LE ccp antibodies IgG/IgA <2 units 0-19 Negat richard <20 Weak posit richard 20 - 39 Moder ate posit richard 40 - 59 Stron g posit richard >59 Perfo rmed at: [facility] [place] [address], [place] [address] Lab Direc tor: Nicholas lam MD, Phone : [phone] Not Available [facility] [address] [address], [place], [address] 07/04/2023 15:10:18 07/03/20 23 07/04/2023 AURELIO antinuclear antibodies, ifa NEGATI VE . Negat richard <1:80 Borde rline 1:80 Posit richard >1:80 ICAP nomluana sullivan re: AC-0 For more infor chandni tineo about Hep-2 cell patte rns use ANApa ttern s.org , the offic keke vinson te for the Inter natio nal Conse nsus on Antin uclea r Antib daphne (AURELIO) Patte rns (ICAP ). Not Available [facility] [address] [address], [place], [address] 07/04/2023 17:09:14 07/03/20 23 07/04/[address] antibodies 0.3 ai 0.0-0. 9 Not Available [facility] [address] [address], [place], [address] 07/04/2023 17:09:14 07/03/20 23 07/04/2023 AURELIO nieto antibodies <0.2 ai 0.0-0. 9 Not Available [facility] [address] [address], [place], [address] 07/04/2023 17:09:14 07/03/20 23 07/04/2023 AURELIO antisclerode rma-70 antibodies <0.2 ai 0.0-0. 9 Not Available [facility] [address] [address], [place], [address] 07/04/2023 17:09:14 07/03/20 23 07/04/2023 AURELIO sjogren's anti-ss-A <0.2 ai 0.0-0. 9 Not Available [facility] [address], [address] 07/04/2023 17:09:14 07/03/20 23 07/04/2023 AURELIO sjogren's anti-ss-B <0.2 ai 0.0-0. 9 Not Available [facility] [address], [address] 07/04/2023 17:09:14 07/03/20 23 07/04/2023 AURELIO anti-payal-1 <0.2 ai 0.0-0. 9 Not Available [facility] [address], [address] 07/04/2023 17:09:14 07/03/20 23 07/04/2023 AURELIO please note: COMMEN T . AURELIO Multi plex metho dolog y was desig la to detec t up to 11 antib odies of the 100+ antib odies that may be detec sarika by AURELIO IFA metho dolog y. Perfo rmed at: [facility] [place] [address], [place] [address] Lab Direc tor: Nichoals lam MD, Phone : [phone] Not Available [facility] [address] [address], [place], [address] 07/04/2023 17:09:14 07/03/20 23 07/04/2023 AURELIO antinuclear antibodies, ifa NEGATI VE . Negat richard <1:80 Borde rline 1:80 Posit richard >1:80 ICAP nomluana sullivan re: AC-0 For more infor chandni tineo about Hep-2 cell patte rns use ANApa ttern s.org , the offic keke santos for the Inter natio nal Conse nsus on Antin uclea r Antib daphne (AURELIO) Patte rns (ICAP ). Not Available [facility] [address] [address], [place], [address] 07/05/2023 15:09:58 07/03/20 23 07/04/[address] antibodies 0.3 ai 0.0-0. 9 Not Available [facility] [address] [address], [place], [address] 07/05/2023 15:09:58 07/03/2007/04/2023 AURELIO nieto antibodies <0.2 ai 0.0-0. 9 Not Available [facility] [address] [address], [place], [address] 07/05/2023 15:09:58 07/03/2007/04/2023 AURELIO antisclerode rma-70 antibodies <0.2 ai 0.0-0. 9 Not Available [facility] [address] [address], [place], [address] 07/05/2023 15:09:58 07/03/2007/04/2023 AURELIO sjogren's anti-ss-A <0.2 ai 0.0-0. 9 Not Available [facility] [address] [address], [place], [address] 07/05/2023 15:09:58 07/03/2007/04/2023 AURELIO sjogren's anti-ss-B <0.2 ai 0.0-0. 9 Not Available [facility] [address] [address], [place], [address] 07/05/2023 15:09:58 07/03/2007/04/2023 AURELIO anti-payal-1 <0.2 ai 0.0-0. 9 Not Available [facility] [address] [address], [place], [address] 07/05/2023 15:09:58 07/03/2007/04/2023 AURELIO please note: COMMEN T . AURELIO Multi plex metho dolog y was desig la to detec t up to 11 antib odies of the 100+ antib odies that may be detec sarika by AURELIO IFA metho dolog y. Perfo rmed at: [facility] [place] [address], [place] [address] Lab Direc tor: Nicholas lam MD, Phone : [phone] Not Available [facility] [address] [place] [address], [address] 07/05/2023 15:09:58 07/03/20 23 07/05/2023 ANCA PROFI LE antimyeloper oxidase (mpo) abs <0.2 units 0.0-0. 9 Not Available [address], [address] 07/05/2023 15:09:59 07/03/20 23 07/05/2023 ANCA PROFI LE antiproteina se 3 (pr-3) abs <0.2 units 0.0-0. 9 Not Available [address], [address] 07/05/2023 15:09:59 07/03/20 23 07/05/2023 ANCA PROFI LE cytoplasmic (C-anca) <1:20 titer neg:<1 :20 Not Available [address], [address] 07/05/2023 15:09:59 07/03/20 23 07/05/2023 ANCA PROFI LE perinuclear (P-anca) <1:20 titer neg:<1 :20 The prese nce of posit richard fluor escen ce exhib iting P-ANC A or C-ANC A patte rns alone is not speci fic for the diagn osis of Wegen er's Granu lomat osis (WG) or micro scopi c polya ngiit is. Decis ions about treat ment shoul d not be based solel y on ANCA IFA resul ts. The Inter natio nal ANCA Group Conse nsus recom mends follo w up testi ng of posit richard sera with both WY- 3 and MPO-A NCA enzym e immun oassa ys. As many as 5% serum sampl es are posit richard only by EIA. Ref. AM J Clin Patho l 1999; 111:5 07-51 3. Not Available [facility] [address] [address], [place], [address] 07/05/2023 15:09:59 07/03/20 23 07/05/2023 ANCA PROFI LE atypical panca <1:20 titer neg:<1 :20 The atypi eliseo pANCA patte rn has been obser ángel in a signi payton t perce ntage of patie nts with ulcer ative colit is, prima ry scler osing chola ngiti s and autoi mmune hepat itis. Perfo [place]med at: [place] [address] Lab Direc tor: Fouzia wyatt MD, Phone : [phone] Not Available [facility] [address] [place] [address], [place], [address] 07/05/2023 15:09:59 07/03/20 23 07/06/2023 ALDOL ASE aldolase 5.3 U/L 3.3-10 .3 Not Available [facility] [address] [address], [place], [address] 07/08/2023 14:09:52 07/03/20 23 07/06/2023 IGG, SUBCL ASS 4 IgG, subclass 4 22 mg/dL 2-96 Perfo rmed at: [facility] [address] [place] [address] Lab Direc tor: Fouzia wyatt MD, Phone : [phone] Not Available [facility] [address] [place] [address], [place], [address] 07/08/2023 14:09:54 07/03/20 23 07/04/2023 AURELIO antinuclear antibodies, ifa NEGATI VE . Negat richard <1:80 Borde rline 1:80 Posit richard >1:80 ICAP nomluana clattianna re: AC-0 For more infor chandni n about Hep-2 cell patte rns use ANApa ttern s.org , the offic ial arami te for the Inter natio nal Conse nsus on Antin uclea r Antib daphne (AURELIO) Patte rns (ICAP ). Not Available [facility] [address] [address], [place], [address] 07/06/2023 06:12:09 07/03/2007/04/[address] antibodies 0.3 ai 0.0-0. 9 Not Available [facility] [address] [address], [place], [address] 07/06/2023 06:12:09 07/03/20 23 07/04/2023 AURELIO nieto antibodies <0.2 ai 0.0-0. 9 Not Available [facility] [address] [address], [place], [address] 07/06/2023 06:12:09 07/03/2007/04/2023 AURELIO antisclerode rma-70 antibodies <0.2 ai 0.0-0. 9 Not Available [facility] [address] [address], [place], [address] 07/06/2023 06:12:09 07/03/2007/04/2023 AURELIO sjogren's anti-ss-A <0.2 ai 0.0-0. 9 Not Available [facility] [address] [address], [place], [address] 07/06/2023 06:12:09 07/03/2007/04/2023 AURELIO sjogren's anti-ss-B <0.2 ai 0.0-0. 9 Not Available [facility] [address] [address], [place], [address] 07/06/2023 06:12:09 07/03/2007/04/2023 AURELIO anti-payal-1 <0.2 ai 0.0-0. 9 Not Available [facility] [address] [address], [place], [address] 07/06/2023 06:12:09 07/03/2007/04/2023 AURELIO please note: COMMEN T . AURELIO Multi plex metho dolog y was desig la to detec t up to 11 antib odies of the 100+ antib odies that may be detec sarika by AURELIO IFA metho dolog y. Perfo rmed at: TA - [facility] [place] [address], [place] [address] Lab Direc tor: Nicholas lam MD, Phone : [phone] Not Available [facility] [address] [facility] [address], [place], [address] 07/06/2023 06:12:09 07/03/2007/06/2023 IMMUN OGLOB ULINS A/E/G /M, SERUM immunoglobul in g, qn, serum 689 mg/dL 603-16 13 Not Available [facility] [address] [address], [place], [address] 07/06/2023 10:13:04 07/03/20 23 07/06/2023 IMMUN OGLOB ULINS A/E/G /M, SERUM immunoglobul in A, qn, serum 160 mg/dL 61-437 Not Available [facility] [address] [address], [place], [address] 07/06/2023 10:13:04 07/03/20 23 07/06/2023 IMMUN OGLOB ULINS A/E/G /M, SERUM immunoglobul in M, qn, serum 64 mg/dL 15-143 Not Available [facility] [address] [address], [place], [address] 07/06/2023 10:13:04 07/03/20 23 07/06/2023 IMMUN OGLOB ULINS A/E/G /M, SERUM immunoglobul in E, total 7 IU/mL 6-495 Perfo rmed at: [facility] - [facility] [place] [address], [place] [address]70 Lab Direc tor: Nicholas lam MD, Phone : [phone] Perfo rmed at: BN - [facility] [place] [address] [facility] , [place] [address] Lab Direc tor: Fouzia wyatt MD, Phone : [phone] Not Available [facility] [address] [address], [place], [address] 07/06/2023 10:13:04 07/03/20 23 07/04/2023 AURELIO antinuclear antibodies, ifa NEGATI VE . Negat richard <1:80 Borde rline 1:80 Posit richard >1:80 ICAP nomen clatu re: AC-0 For more infor chandni tineo about Hep-2 cell patte rns use ANApa ttern s.org , the offic keke santos for the Inter natio nal Conse nsus on Antin uclea r Antib daphne (AURELIO) Patte rns (ICAP ). Not Available [facility] [address] [address], [place], [address] 07/06/2023 10:13:05 07/03/20 23 07/04/[address] contractor antibodies 0.3 ai 0.0-0. 9 Not Available [facility] [address] [address], [place], [address] 07/06/2023 10:13:05 07/03/20 23 07/04/2023 AURELIO nieto antibodies <0.2 ai 0.0-0. 9 Not Available [facility] [address] [address], [place], [address] 07/06/2023 10:13:05 07/03/20 23 07/04/2023 AURELIO antisclerode rma-70 antibodies <0.2 ai 0.0-0. 9 Not Available [facility] [address] [address], [place], [address] 07/06/2023 10:13:05 07/03/20 23 07/04/2023 AURELIO sjogren's anti-ss-A <0.2 ai 0.0-0. 9 Not Available [facility] [address] [address], [place], [address] 07/06/2023 10:13:05 07/03/20 23 07/04/2023 AURELIO sjogren's anti-ss-B <0.2 ai 0.0-0. 9 Not Available [facility] [address] [address], [place], [address] 07/06/2023 10:13:05 07/03/20 23 07/04/2023 AURELIO anti-payal-1 <0.2 ai 0.0-0. 9 Not Available [facility] [address] [address], [place], [address] 07/06/2023 10:13:05 07/03/20 23 07/04/2023 AURELIO please note: COMMEN T . AURELIO Multi plex metho dolog y was desig la to detec t up to 11 antib odies of the 100+ antib odies that may be detec sarkia by AURELIO IFA metho dolog y. Perfo rmed at: - [facility] [address], [place] [address] Lab Direc tor: Nicholas lam MD, Phone : [phone] Not Available [facility] [address] [address], [place], [address] 07/06/2023 10:13:05 07/03/2007/06/2023 IMMUN OGLOB ULINS A/E/G /M, SERUM immunoglobul in g, qn, serum 689 mg/dL 603-16 13 Not Available [facility] [address] [address], [place], [address] 07/08/2023 14:09:54 07/03/20 23 07/06/2023 IMMUN OGLOB ULINS A/E/G /M, SERUM immunoglobul in A, qn, serum 160 mg/dL 61-437 Not Available [facility] [address] [address], [place], [address] 07/08/2023 14:09:54 07/03/20 23 07/06/2023 IMMUN OGLOB ULINS A/E/G /M, SERUM immunoglobul in M, qn, serum 64 mg/dL 15-143 Not Available [facility] [address] [address], [place], [address] 07/08/2023 14:09:54 07/03/20 23 07/06/2023 IMMUN OGLOB ULINS A/E/G /M, SERUM immunoglobul in E, total 7 IU/mL 6-495 Perfo rmed at: TA - [facility] [place] [address], [place] [address] Lab Direc tor: Nicholas lam MD, Phone : [phone] Perfo rmed at: - [facility] [place] [address] [facility] , [place] [address] Lab Direc tor: Fouzia wyatt MD, Phone : [phone] Not Available [facility] [address] [address], [place], [address] 07/08/2023 14:09:54 07/03/2007/04/2023 AURELIO antinuclear antibodies, ifa NEGATI VE . Negat richard <1:80 Borde rline 1:80 Posit richard >1:80 ICAP nomluana sullivan re: AC-0 For more infor chandni tineo about Hep-2 cell patte rns use ANApa ttern s.org , the offic ialonny santos for the Inter natio nal Conse nsus on Antin uclea r Antib daphne (AURELIO) Patte rns (ICAP ). Not Available [facility] [address], [address] 07/08/2023 14:09:55 07/03/2007/04/[address] contractor antibodies 0.3 ai 0.0-0. 9 Not Available [address], [address] 07/08/2023 14:09:55 07/03/2007/04/2023 AURELIO nieto antibodies <0.2 ai 0.0-0. 9 Not Available [facility] [address] [place] [address], [place], [address] 07/08/2023 14:09:55 07/03/2007/04/2023 AURELIO antisclerode rma-70 antibodies <0.2 ai 0.0-0. 9 Not Available [facility] [address] [place] [address], [place], [address] 07/08/2023 14:09:55 07/03/2007/04/2023 AURELIO sjogren's anti-ss-A <0.2 ai 0.0-0. 9 Not Available [facility] [address] [place] [address], [address] 07/08/2023 14:09:55 07/03/2007/04/2023 AURELIO sjogren's anti-ss-B <0.2 ai 0.0-0. 9 Not Available [facility] [address], [address] 07/08/2023 14:09:55 07/03/2007/04/2023 AURELIO anti-payal-1 <0.2 ai 0.0-0. 9 Not Available [facility] [address] [place] [address], [address] 07/08/2023 14:09:55 07/03/20 23 07/04/2023 AURELIO please note: COMMEN T . AURELIO Multi plex metho dolog y was desig la to detec t up to 11 antib odies of the 100+ antib odies that may be detec sarika by AURELIO IFA metho dolog y. Perfo rmed at: [facility] - [facility] [place] [address], [place] [address] Lab Direc tor: Nicholas lam MD, Phone : [phone] Not Available [facility] [address] [facility] [address], [place], [address] 07/08/2023 14:09:55 07/03/2007/08/2023 ANTI- GBM ANTIB ODIES (RDL) anti-gbm Ab (rdl) <20 units <20 Perfo rmed at: [facility] [employer] [address] [place] [address] Lab Direc tor: Edison lam MD, Phone : [phone] Not Available [facility] [address] [facility] [address], [place], [address] 07/08/2023 14:09:56 07/03/2007/06/2023 IMMUN OGLOB ULINS A/E/G /M, SERUM immunoglobul in g, qn, serum 689 mg/dL 603-16 13 Not Available [facility] [address] [address], [place], [address] 07/16/2023 06:40:04 07/03/2007/06/2023 IMMUN OGLOB ULINS A/E/G /M, SERUM immunoglobul in A, qn, serum 160 mg/dL 61-437 Not Available [facility] [address] [facility] [address], [place], [address] 07/16/2023 06:40:04 07/03/2007/06/2023 IMMUN OGLOB ULINS A/E/G /M, SERUM immunoglobul in M, qn, serum 64 mg/dL 15-143 Not Available [facility] [address] [facility] [address], [place], [address] 07/16/2023 06:40:04 07/03/20 23 07/06/2023 IMMUN OGLOB ULINS A/E/G /M, SERUM immunoglobul in E, total 7 IU/mL 6-495 Perfo rmed at: TA - [facility] [place] [address], [place] [address] Lab Direc tor: Nicholas lam MD, Phone : [phone] Perfo rmed at: BN - [facility] [place] [address] [facility] , [place] [address] Lab Direc tor: Fouzia wyatt MD, Phone : [phone] Not Available [facility] [address] [address], [place], [address] 07/16/2023 06:40:04 07/03/2007/04/2023 AURELIO antinuclear antibodies, ifa NEGATI VE . Negat richard <1:80 Borde rline 1:80 Posit richard >1:80 ICAP nomen nate re: AC-0 For more infor chandni tineo about Hep-2 cell patte rns use ANApa ttern s.org , the offic ialonny vinson te for the Inter natio nal Conse nsus on Antin uclea r Antib daphen (AURELIO) Patte rns (ICAP ). Not Available [facility] [address] [address], [place], [address] 07/16/2023 06:40:06 07/03/2007/04/[address] contractor antibodies 0.3 ai 0.0-0. 9 Not Available [facility] [address] [address], [place], [address] 07/16/2023 06:40:06 07/03/2007/04/2023 AURELIO nieto antibodies <0.2 ai 0.0-0. 9 Not Available [facility] [address] [address], [place], [address] 07/16/2023 06:40:06 07/03/2007/04/2023 AURELIO antisclerode rma-70 antibodies <0.2 ai 0.0-0. 9 Not Available [facility] [address] [address], [place], [address] 07/16/2023 06:40:06 07/03/20 23 07/04/2023 AURELIO sjogren's anti-ss-A <0.2 ai 0.0-0. 9 Not Available [facility] [address] [address], [place], [address] 07/16/2023 06:40:06 07/03/2007/04/2023 AURELIO sjogren's anti-ss-B <0.2 ai 0.0-0. 9 Not Available [facility] [address], [address] 07/16/2023 06:40:06 07/03/2007/04/2023 AURELIO anti-payal-1 <0.2 ai 0.0-0. 9 Not Available [facility] [address], [address] 07/16/2023 06:40:06 07/03/2007/04/2023 AURELIO please note: COMMEN T . AURELIO Multi plex metho dolog y was desig la to detec t up to 11 antib odies of the 100+ antib odies that may be detec sarika by AURELIO IFA metho dolog y. [facility] [address] [place] [address] Lab Direc tor: Nicholas lam MD, Phone : [phone] Not Available [facility] [address], [address] 07/16/2023 06:40:06 07/03/2007/08/2023 ANTI- GBM ANTIB ODIES (RDL) anti-gbm Ab (rdl) <20 units <20 Perfo rmed at: [facility] [employer] [address] [place] [address] Lab Direc tor: Edison lam MD, Phone : [phone] Not Available [facility] [address] [address], [place], [address] 07/16/2023 06:40:06 07/03/2007/16/2023 MYOSI TIS PANEL I ID-2 antibodies* NEGATI VE negati ve Not Available [facility] [address], [address] 07/16/2023 06:40:07 07/03/2013 0707/16/2023 MYOSI TIS PANEL I payal-1 antibodies* <20 units <20 Not Available [facility] [address] [address], [place], [address] 07/16/2023 06:40:07 07/03/20 23 07/16/2023 MYOSI TIS PANEL I tif-1gamma antibodies* <20 units <20 Not Available [facility] [address] [address], [place], [address] 07/16/2023 06:40:07 07/03/20 23 07/16/2023 MYOSI TIS PANEL I kU* NEGATI VE negati ve Not Available [facility] [address], [address] 07/16/2023 06:40:07 07/03/2007/16/2023 MYOSI TIS PANEL I mda-5 antibodies* <20 units <20 Not Available [facility] [address] [address], [place], [address] 07/16/2023 06:40:07 07/03/20 23 07/16/2023 MYOSI TIS PANEL I signal recognition particle* NEGATI VE negati ve Not Available [facility] [address] [address], [place], [address] 07/16/2023 06:40:07 07/03/20 23 07/16/2023 MYOSI TIS PANEL I nxp-2 antibodies* <20 units <20 Not Available [facility] [address] [address], [place], [address] 07/16/2023 06:40:07 07/03/20 23 07/16/[address] I [address]-7* NEGATI VE negati ve Not Available [facility] [address] [address], [place], [address] 07/16/2023 06:40:07 07/03/20 23 07/16/2023 MYOSI TIS PANEL I pm/scl-100 antibodies* <20 units <20 Not Available [facility] [address], [address] 07/16/2023 06:40:07 07/03/20 23 07/16/[address] I [address]-12* NEGATI VE negati ve Not Available [facility] [address], [address] 07/16/2023 06:40:07 07/03/20 23 07/16/2023 MYOSI TIS PANEL I ss-A 52kd IgG antibodies* <20 units <20 Not Available [facility] [address], [address] 07/16/2023 06:40:07 07/03/20 23 07/16/2023 MYOSI TIS PANEL I ej* NEGATI VE negati ve Not Available [facility] [address], [address] 07/16/2023 06:40:07 07/03/20 23 07/16/2023 MYOSI TIS PANEL I U1 road contractor antibodies* <20 units <20 Not Available [facility] [address], [address] 07/16/2023 06:40:07 07/03/20 23 07/16/2023 MYOSI TIS PANEL I U2 road contractor antibodies* NEGATI VE negati ve Not Available [facility] [address], [address] 07/16/2023 06:40:07 07/03/20 23 07/16/2023 MYOSI TIS PANEL I oj* NEGATI VE negati ve Not Available [facility] [address] [place] [address], [address] 07/16/2023 06:40:07 07/03/20 23 07/16/2023 MYOSI TIS PANEL I U3 road contractor antibodies* NEGATI VE negati ve Inter preta tion for Anti- Payal-1, Anti- TIF-1 gamma , Anti- MDA-5 , Anti- NXP-2 , Anti- PM/Sc l-100 , Anti- SS-A 52 kD, Anti- U1 EXPEDITION SUPERVISOR: Negat richard: <20 Weak Posit richard: 20 - 39 Moder ate Posit richard: 40 - 80 Stron g Posit richard: >80 Perfo rmed at: [facility] [employer] [address] [place] [address] Lab Direc tor: Edison lam MD, Phone : [phone] Not Available [facility] [address] [place] [address], [address] 07/16/2023 06:40:07 08/05/20 24 08/05/2024 COMPL ETE BLOOD COUNT AUTO DIFF white blood count 5.1 10*3/ uL 4.80-1 0.80 normal Not Available [facility] [address] [facility] [address], [place], [address] 08/05/2024 13:50:18 08/05/20 24 08/05/2024 COMPL ETE BLOOD COUNT AUTO DIFF red blood count 5.07 mill/ cmm 4.70-6 .10 normal Not Available [facility] [address] [address], [place], [address] 08/05/2024 13:50:18 08/05/20 24 08/05/2024 COMPL ETE BLOOD COUNT AUTO DIFF hemoglobin 15.6 g/dL 14.0-1 8.0 normal Not Available [facility] [address] [address], [place], [address] 08/05/2024 13:50:18 08/05/20 24 08/05/2024 COMPL ETE BLOOD COUNT AUTO DIFF hematocrit 47.0 % 42.0-5 2.0 normal Not Available [facility] [address] [address], [place], [address] 08/05/2024 13:50:18 08/05/20 24 08/05/2024 COMPL ETE BLOOD COUNT AUTO DIFF mean corpuscular volume 92.7 fL 80.0-9 4.0 normal Not Available [facility] [address] [facility] [address], [place], [address] 08/05/2024 13:50:18 08/05/20 24 08/05/2024 COMPL ETE BLOOD COUNT AUTO DIFF mean corpuscular hemoglobin 30.8 pg 27.0-3 1.0 normal Not Available [facility] [address] [facility] [address], [place], [address] 08/05/2024 13:50:18 08/05/20 24 08/05/2024 COMPL ETE BLOOD COUNT AUTO DIFF mean corpuscular HGB conc 33.2 g/dL 33.0-3 7.0 normal Not Available [facility] [address] [address], [place], [address] 08/05/2024 13:50:18 08/05/20 24 08/05/2024 COMPL ETE BLOOD COUNT AUTO DIFF red cell distribution width 12.8 % 11.5-1 4.5 normal Not Available [facility] [address] [facility] [address], [place], [address] 08/05/2024 13:50:18 08/05/20 24 08/05/2024 COMPL ETE BLOOD COUNT AUTO DIFF platelet count 163 10*3/ uL 130-40 0 normal Not Available [facility] [address] [facility] [address], [place], [address] 08/05/2024 13:50:18 08/05/20 24 08/05/2024 COMPL ETE BLOOD COUNT AUTO DIFF mean platelet volume 11.0 fL 7.4-10 .4 high Not Available [facility] [address] [facility] [address], [place], [address] 08/05/2024 13:50:18 08/05/20 24 08/05/2024 COMPL ETE BLOOD COUNT AUTO DIFF absolute neutrophils count 3.5 thou/ cmm 1.8-7. 8 normal Not Available [facility] [address] [facility] [address], [place], [address] 08/05/2024 13:50:18 08/05/20 24 08/05/2024 COMPL ETE BLOOD COUNT AUTO DIFF immature granulocytes % (auto) 0.4 % Not Available [facility] [address] [facility] [address], [place], [address] 08/05/2024 13:50:18 08/05/20 24 08/05/2024 COMPL ETE BLOOD COUNT AUTO DIFF neutrophils % (auto) 69.7 % 40.0-7 3.0 normal Not Available [facility] [address] [facility] [address], [place], [address] 08/05/2024 13:50:18 08/05/20 24 08/05/2024 COMPL ETE BLOOD COUNT AUTO DIFF lymphocytes % (auto) 20.5 % 18.0-4 8.0 normal Not Available [facility] [address] [facility] [address], [place], [address] 08/05/2024 13:50:18 08/05/20 24 08/05/2024 COMPL ETE BLOOD COUNT AUTO DIFF monocytes % (auto) 8.4 % 0.0-10 .0 normal Not Available [facility] [address] [facility] [address], [place], [address] 08/05/2024 13:50:18 08/05/20 24 08/05/2024 COMPL ETE BLOOD COUNT AUTO DIFF eosinophils % (auto) 0.6 % 0.0-5. 0 normal Not Available [facility] [address] [address], [place], [address] 08/05/2024 13:50:18 08/05/20 24 08/05/2024 COMPL ETE BLOOD COUNT AUTO DIFF basophils % (auto) 0.4 % 0.0-2. 0 normal Not Available [facility] [address] [address], [place], [address] 08/05/2024 13:50:18 08/05/20 24 08/05/2024 COMPL ETE BLOOD COUNT AUTO DIFF immature granulocytes # (auto) 0.02 X10_3 /uL 0.00-0 .09 normal Not Available [facility] [address] [address], [place], [address] 08/05/2024 13:50:18 08/05/20 24 08/05/2024 COMPL ETE BLOOD COUNT AUTO DIFF neutrophils # (auto) 3.6 thou/ cmm 1.8-7. 8 normal Not Available [facility] [address] [address], [place], [address] 08/05/2024 13:50:18 08/05/20 24 08/05/2024 COMPL ETE BLOOD COUNT AUTO DIFF lymphocytes # (auto) 1.1 thou/ cmm 0.7-4. 5 normal Not Available [facility] [address] [address], [place], [address] 08/05/2024 13:50:18 08/05/20 24 08/05/2024 COMPL ETE BLOOD COUNT AUTO DIFF monocytes # (auto) 0.4 thou/ cmm 0.1-1. 0 normal Not Available [facility] [address] [address], [place], [address] 08/05/2024 13:50:18 08/05/20 24 08/05/2024 COMPL ETE BLOOD COUNT AUTO DIFF eosinophils # (auto) 0.0 thou/ cmm 0.0-0. 4 normal Not Available [facility] [address] [address], [place], [address] 08/05/2024 13:50:18 08/05/20 24 08/05/2024 COMPL ETE BLOOD COUNT AUTO DIFF basophils # (auto) 0.0 thou/ cmm 0-0.2 normal Not Available [facility] [address] [facility] [address], [place], [address] 08/05/2024 13:50:18 08/05/20 24 08/05/2024 COMPL ETE BLOOD COUNT AUTO DIFF nucleated RBC% 0.0 /100_ WBC 0.0-3. 0 normal Not Available [facility] [address] [facility] [address], [place], [address] 08/05/2024 13:50:18 08/05/20 24 08/05/2024 UA, URINA LYSIS RFLX CULT/ SEDMT color,urine Yellow yellow Not Available [facility] [address] [facility] [address], [place], [address] 08/05/2024 14:07:49 08/05/20 24 08/05/2024 UA, URINA LYSIS RFLX CULT/ SEDMT clarity,urin e Clear clear Not Available [facility] [address] [facility] [address], [place], [address] 08/05/2024 14:07:49 08/05/20 24 08/05/2024 UA, URINA LYSIS RFLX CULT/ SEDMT pH, urine 5.0 5.0-9. 0 normal Not Available [facility] [address] [facility] [address], [place], [address] 08/05/2024 14:07:49 08/05/20 24 08/05/2024 UA, URINA LYSIS RFLX CULT/ SEDMT specific gravity,urin e 1.020 1.002- 1.030 normal Not Available [facility] [address] [facility] [address], [place], [address] 08/05/2024 14:07:49 08/05/20 24 08/05/2024 UA, URINA LYSIS RFLX CULT/ SEDMT blood,urine Negati ve mg/dL negati ve Not Available [facility] [address] [facility] [address], [place], [address] 08/05/2024 14:07:49 08/05/20 24 08/05/2024 UA, URINA LYSIS RFLX CULT/ SEDMT protein,urin e Negati ve mg/dL negati ve Not Available [facility] [address] [facility] [address], [place], [address] 08/05/2024 14:07:49 08/05/20 24 08/05/2024 UA, URINA LYSIS RFLX CULT/ SEDMT glucose,urin e (UA) Negati ve mg/dL negati ve Not Available [facility] [address] [address], [place], [address] 08/05/2024 14:07:49 08/05/20 24 08/05/2024 UA, URINA LYSIS RFLX CULT/ SEDMT ketones,urin e Negati ve mg/dL negati ve Not Available [facility] [address] [address], [place], [address] 08/05/2024 14:07:49 08/05/20 24 08/05/2024 UA, URINA LYSIS RFLX CULT/ SEDMT nitrate,urin e Negati ve negati ve Not Available [facility] [address] [address], [place], [address] 08/05/2024 14:07:49 08/05/20 24 08/05/2024 UA, URINA LYSIS RFLX CULT/ SEDMT bilirubin,ur ine Negati ve mg/dL negati ve Not Available [facility] [address] [address], [place], [address] 08/05/2024 14:07:49 08/05/20 24 08/05/2024 UA, URINA LYSIS RFLX CULT/ SEDMT urobilinogen ,urine Normal mg/dL 0.2-1. 0 Not Available [facility] [address] [address], [place], [address] 08/05/2024 14:07:49 08/05/20 24 08/05/2024 UA, URINA LYSIS RFLX CULT/ SEDMT leukocyte esterase,uri ne Negati ve negati ve Not Available [facility] [address] [address], [place], [address] 08/05/2024 14:07:49 08/05/20 24 08/05/2024 UA, URINA LYSIS RFLX CULT/ SEDMT microscopic No Not Available [facility] [address] [address], [place], [address] 08/05/2024 14:07:49 08/05/20 24 08/05/2024 COMPR EHENS RICHARD METAB OLIC PANEL sodium 145 mEq/L 137-14 5 normal Not Available [facility] [address] [address], [place], [address] 08/05/2024 14:24:50 08/05/20 24 08/05/2024 COMPR EHENS RICHARD METAB OLIC PANEL potassium,K 4.1 mEq/L 3.6-5. 0 normal Not Available [facility] [address] [facility] [address], [place], [address] 08/05/2024 14:24:50 08/05/20 24 08/05/2024 COMPR EHENS RICHARD METAB OLIC PANEL chloride 108 mEq/L 98-107 high Not Available [facility] [address] [facility] [address], [place], [address] 08/05/2024 14:24:50 08/05/20 24 08/05/2024 COMPR EHENS RICHARD METAB OLIC PANEL carbon dioxide 30 mEq/L 22-30 normal Not Available [facility] [address] [address], [place], [address] 08/05/2024 14:24:50 08/05/20 24 08/05/2024 COMPR EHENS RICHARD METAB OLIC PANEL anion gap 7 5-20 normal Not Available [facility] [address] [address], [place], [address] 08/05/2024 14:24:50 08/05/20 24 08/05/2024 COMPR EHENS RICHARD METAB OLIC PANEL blood urea nitrogen 11 mg/dL 9-20 normal Not Available [facility] [address] [facility] [address], [place], [address] 08/05/2024 14:24:50 08/05/20 24 08/05/2024 COMPR EHENS RICHARD METAB OLIC PANEL creatinine 1.2 mg/dL 0.7-1. 5 normal Not Available [facility] [address] [facility] [address], [place], [address] 08/05/2024 14:24:50 08/05/20 24 08/05/2024 COMPR EHENS RICHARD METAB OLIC PANEL creatinine clr calc pharmacy mL/mi n Unabl e to [facility] late CRCL, Ht and/o r Wt tatyana ng Not Available [facility] [address] [facility] [address], [place], [address] 08/05/2024 14:24:50 08/05/20 24 08/05/2024 COMPR EHENS RICHARD METAB OLIC PANEL estimated glomerular filt rate 63 >=90 mL/min /1.73M 2 low Repor sarika eGFR is based on the CKD-E PI 2020 equat ion that does not use a race kirsten murray maileShelly Mireles candi infor chandni tineo can be found at: [id number] _icb_ egfr_ summa ry_fl yer5. pdf (kidn ey.or g) Not Available [facility] [address] [address], [place], [address] 08/05/2024 14:24:50 08/05/20 24 08/05/2024 COMPR EHENS RICHARD METAB OLIC PANEL BUN/creatini ne ratio 9.2 ratio 7.0-25 .0 normal Not Available [facility] [address] [address], [place], [address] 08/05/2024 14:24:50 08/05/20 24 08/05/2024 COMPR EHENS RICHARD METAB OLIC PANEL glucose 89 mg/dL 70-100 normal Not Available [facility] [address] [address], [place], [address] 08/05/2024 14:24:50 08/05/20 24 08/05/2024 COMPR EHENS RICHARD METAB OLIC PANEL calcium 8.9 mg/dL 8.4-10 .2 normal Not Available [facility] [address] [address], [place], [address] 08/05/2024 14:24:50 08/05/20 24 08/05/2024 COMPR EHENS RICHARD METAB OLIC PANEL bilirubin,to bill 0.9 mg/dL 0.2-1. 3 normal Not Available [facility] [address] [address], [place], [address] 08/05/2024 14:24:50 08/05/20 24 08/05/2024 COMPR EHENS RICHARD METAB OLIC PANEL aspartate amino transferase 16 U/L 15-46 normal Not Available [facility] [address] [address], [place], [address] 08/05/2024 14:24:50 08/05/20 24 08/05/2024 COMPR EHENS RICHARD METAB OLIC PANEL alanine aminotransfe rase 24 U/L 21-72 normal Not Available [facility] [address], [address] 08/05/2024 14:24:50 08/05/20 24 08/05/2024 COMPR EHENS RICHARD METAB OLIC PANEL total protein 6.1 g/dL 6.3-8. 2 low Not Available [facility] [address] [address], [place], [address] 08/05/2024 14:24:50 08/05/20 24 08/05/2024 COMPR EHENS RICHARD METAB OLIC PANEL albumin level 3.6 g/dL 3.4-5. 0 normal Not Available [facility] [address] [address], [place], [address] 08/05/2024 14:24:50 08/05/20 24 08/05/2024 COMPR EHENS RICHARD METAB OLIC PANEL globulin 2.5 g/dL 2.4-3. 5 normal Not Available [facility] [address] [address], [place], [address] 08/05/2024 14:24:50 08/05/20 24 08/05/2024 COMPR EHENS RICHARD METAB OLIC PANEL albumin/glob ulin ratio 1.4 % 1.1-2. 2 normal Not Available [facility] [address] [address], [place], [address] 08/05/2024 14:24:50 08/05/20 24 08/05/2024 COMPR EHENS RICHARD METAB OLIC PANEL alkaline phosphatase 87 U/L 50-136 normal Not Available [facility] [address] [address], [place], [address] 08/05/2024 14:24:50 08/05/20 24 08/05/2024 PROST ATE SPECI FIC ANTIG EN prostate specific antigen < 0.1 NG/mL 0.0-4. 0 normal Tumor marke r resul ts can vary due to diffe rence s in assay metho ds and reage nt speci ficit y. It is recom corby d that the clini troy reque st paral lel measu remen ts for monit oring of patie nts if resul ts are teste d at [facility] sites . Not Available [facility] [address] [address], [place], [address] 08/05/2024 14:24:51 08/05/20 24 08/05/2024 THYRO ID STIMU LATIN G HORMO NE thyroid stimulating hormone 1.631 uIU/m L 0.300- 5.000 normal Not Available [facility] [address] [facility] [address], [place], [address] 08/05/2024 14:24:52 08/05/20 24 08/06/2024 LIPID PANEL cholesterol, total 208 mg/dL 100-19 9 abnormal Not Available [facility] [address] [facility] [address], [place], [address] 08/06/2024 08:13:31 08/05/20 24 08/06/2024 LIPID PANEL triglyceride s 114 mg/dL 0-149 Not Available [facility] [address] [facility] [address], [place], [address] 08/06/2024 08:13:31 08/05/20 24 08/06/2024 LIPID PANEL HDL cholesterol 40 mg/dL >39 Not Available [facility] [address] [facility] [address], [place], [address] 08/06/2024 08:13:31 08/05/20 24 08/06/2024 LIPID PANEL VLDL cholesterol eliseo 21 mg/dL 5-40 Not Available [facility] [address] [facility] [address], [place], [address] 08/06/2024 08:13:31 08/05/20 24 08/06/2024 LIPID PANEL LDL cholesterol calc 147 mg/dL 0-99 abnormal Not Available [facility] [address] [facility] [address], [place], [address] 08/06/2024 08:13:31 08/05/20 24 08/06/2024 LIPID PANEL LDL calc comment: TNP . Not Available [facility] [address] [facility] [address], [place], [address] 08/06/2024 08:13:31 08/05/20 24 08/06/2024 HGB A1C WITH EAG ESTIM ATION hemoglobin A1C 5.5 % 4.8-5. 6 Predi abete s: 5.7 - 6.4 Diabe miguel: >6.4 Glyce yamilex contr ol for adult s with diabe miguel: <7.0 Not Available [facility] [address] [facility] [address], [place], [address] 08/06/2024 08:13:32 08/05/20 24 08/06/2024 HGB A1C WITH EAG ESTIM ATION estim. avg glu (EAG) 111 mg/dL . Perfo rmed at: [facility] [place] [address], [place] [address] Lab Direc tor: Nicholas lam MD, Phone : [phone] Not Available [facility] [address], [place], [address] 08/06/2024 08:13:32 05/11/20 23 05/11/2023 CT, chest , w/o contr ast [facility] [address] [place] [address] ext 2057 Patien t Name: ELMER COLUNGA RD N Medica l Record #: [id number] Addres s: [address] Accoun t#: [id number] City/S loving/Z ip: [place], [place] [address] [address]: Natalia lam MD Phone: Insura nce: Medica re A B /Ag e/Sex: 1950/7 3/M BCBS Out of State Admit/ Reg Date: Orderi ng Dr: Natalia Banuelos MD Locati on: DI.CTS M/ PCP: Lin Ornelas MD Date of Servic e: Order (s): CT chest wo contra st CPT Code: 22182 Report Number : [id number] Reason for Exam: 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 PNEUMO NATALIA DUE TO STRICKLAND VIRUS TECHNI QUE: Axial CT images of the chest were obtain ed. Recons tructi ons were perfor med. Unless otherw ise specif ied, incide ntal thyroi d, adrena l, renal, and pulmon anthony nodule s do not requir e dedica sarika imagin g follow -up. This exam was perfor med accord ing to our depart mental dose-o ptimiz ation progra m which includ es automa sarika exposu re contro l, adjust ment of the mA and/or kV accord ing to patien t size and/or use of iterat richard recons tructi on techni que. CONTRA ST: None. COMPAR CLAUDY: CT chest Januar y 2020 FINDIN GS: Suppor t Device s: None. Lower Neck: Visual ized thyroi d gland is normal . No enlarg ed suprac lavicu lar lymph nodes are identi fied. Thorac ic Vessel s: Mild aneury smal dilata tion of the ascend ing thorac ic aorta measur ing up to 4 cm. Centra l pulmon anthony arteri es are normal in size. Aortic athero sclero sis. Heart and Perica rdium: The cardia c chambe rs are normal in size. Athero sclero tic calcif ied plaque s in the strickland ry arteri es.. No perica rdial effusi on or thicke haresh is presen t. Medias tinum and Sarah: No medias tinal mass is presen t. No enlarg ed hilar or medias tinal lymph nodes are identi fied. The esopha vianney is normal . Pleura and Diaphr agm: No pleura l effusi on is presen t. No pneumo thorax is identi fied. Right and left hemidi aphrag ms are normal in positi on. Chest Wall and Axilla : No abnorm ality of the chest wall is demons trated . No enlarg ed axilla ry lymph nodes are identi fied. Lungs and Airway s: Trache a and main bronch i are patent . There is subple ural reticu lation s with mild bronch iectas is and bronch iolect asis most pronou nced in bilate ral lower lobes. There is associ ated interl obar septal thicke haresh in the bilate ral lower lobes. Findin gs likely repres ent fibrot ic sequel ae of prior atypic al infect ion such as Covid 19. No suspic ious pulmon anthony nodule s. Upper Abdome n: Status postch olecys tectom y. Osseou s Struct ures: Multil evel degene rative change s of the thorac ic spine. IMPRES MAICO: Subple ural reticu lation s with mild bronch iectas is and bronch iolect asis most pronou nced in bilate ral lower lobes. Associ ated interl obar septal thicke haresh in the bilate ral lower lobes. Findin gs likely repres ent fibrot ic sequel ae of prior atypic al infect ion such as covid 19. Mild aneury smal dilata tion of the ascend ing thorac ic aorta measur ing up to 4 cm. Recomm ended follow - up in one year. Electr onical ly signed by: Tito latham MD 023 10:25 AM CDT Workst ation: [id number] Dictat ed By: Tito latham MD 1125 Signed By: Tito Wright MD 1127 TD/TT: 112 Tech: [id number] cc: DANNA; CHIN* Lin Ornelas MD; Natalia Banuelos MD [email or web address] [facility] [address], [place], [address] 05/15/2023 09:29:40 05/17/20 23 05/17/2023 pulmo nary funct ion test* No observ ation record ed. [email or web address] Not Available 2022 15:21:44 08/08/20 24 08/08/2024 CT, chest , w/o contr ast [facility] [address] [address] [place] [address] ext 2057 Patien t Name: ELMER COLUNGA GERARDO N Medica l Record #: [id number] Addres s: [address] Accoun t#: [id number] City/S loving/Z ip: [place], [place] [address] [address]: Natalia lam MD Phone: Insura nce: Medica re A B /Ag e/Sex: 1950/7 4/M BCBS Out of State Admit/ Reg Date: Orderi ng Dr: Natalia Banuelos MD Locati on: DI.CTS MQ/ PCP: Lin Ornelas MD Date of Servic e: Order (s): CT chest hi-res wo contra st CPT Code: 16534 Report Number : [id number] Reason for Exam: INTERS TITIAL LUNG DISEAS E HIGH-R ESOLUT ION CT CHEST WITHOU T CONTRA ST COMPAR CLAUDY: 2022 INDICA TION: INTERS TITIAL LUNG DISEAS E TECHNI QUE: Multip le overla pping axial images of the chest were obtain ed withou t intrav enous contra st. Additi onal high resolu tion noncon tiguou s images were obtain ed every 10 mm. FINDIN GS: There is no medias tinal, hilar, or axilla ry lympha denopa thy. Heart size is normal . There is no infilt rate, effusi on or pneumo thorax . 2 mm left apical nodule on image 23 is of doubtf ul signif icance . Osseou s struct ures demons trate degene rative change s withou t an acute osseou s abnorm ality. Mild to modera te change s of centri lobula r emphys joselito noted. High-r esolut ion images demons trate subple ural reticu lation s with minima l bronch iectas is in the bilate ral lower lobes. Interl obular septal thicke haresh noted. Overal l, the appear ance is unchan ged from prior study. Most likely this is the sequel a of a prior infect ion. Limite d evalua tion of the upper abdome n is normal . IMPRES MAICO: * Mild to modera te change s of centri lobula r emphys joselito. * Subple ural reticu lation s with minima l bronch iectas is in the bilate ral lower lobes. Overal l, the appear ance is unchan ged from prior study. Most likely this is the sequel a of a prior infect ion. * 2 mm left apical nodule of doubtf ul signif icance . Per Fleisc hner Societ y Guidel aries,i f patien t is low risk for malign kieran, no routin e follow -up imagin g is recomm ended. If patien t is high risk for malign kieran, a non-co ntrast Chest CT at 12 months is option al. If perfor med and the nodule is stable at 12 months , no furthe r follow -up is recomm ended. These guidel aries do not apply to immuno compro mised patien ts and patien ts with cancer . Follow up in patien ts with signif icant comorb iditie s as clinic jenny baum. For lung cancer screen ing, adhere to Lung-R ADS guidel aries. Refere nce: Radiol ogy. 2017; 284(1) :228-4 3. * This exam was perfor med accord ing to our depart mental dose-o ptimiz ation progra m which includ es automa sarika exposu re contro l, adjust ment of the mA and/or kV accord ing to patien t size and/or use of iterat richard recons tructi on techni que. Electr onical ly signed by: Jean cadena MD 2023 08:55 AM EST RP Workst ation: [id number] Dictat ed By: Jean cadena MD 854 Signed By: Saba Rogers MD 857 TD/TT: 854 Tech: [id number] cc: DANNA; CHIN* Lin Ornelas MD; Natalia Banuelos MD [email or web address] [facility] [address] [facility] [address], [place], [address] 09/13/2024 11:11:59 09/11/19 25 09/10/2024 PFT, compl ete No observ ation record ed. [email or web address] Not Available 2024 11:11:55 Result Notes Documentation Provider Name and Address Organization Details Recorded Time Ct, Chest, W/o Contrast : [facility] [address] [facility] [address] [place] [address] vgv 2057 Patient Name: ADY COLUNGA Medical Record#: [id number] Address: [address] [place] [address] City/State/Zip: [place], [place] [id number] Attending Dr: Estrellita lam MD Insurance: Medicare A B /Age/Sex: 1950/73/M BCBS Out of State Admit/Reg Date: 08/05/[address]: Estrellita Banuelos MD [facility] PCP: Lin Ornelas MD Date of Service: 08/05/24 Order (s): CT chest hi-res wo contrast CPT Code: 01609 Report Number: [id number] Reason for Exam: INTERSTITIAL LUNG DISEASE HIGH-RESOLUTION CT CHEST WITHOUT CONTRAST COMPARISON: 05/10/2023 INDICATION: INTERSTITIAL LUNG DISEASE TECHNIQUE: Multiple overlapping axial images of the chest were obtained without intravenous contrast. Additional high resolution noncontiguous images were obtained every 10 mm. FINDINGS: There is no mediastinal, hilar, or axillary lymphadenopathy. Heart size is normal. There is no infiltrate, effusion or pneumothorax. 2 mm left apical nodule on image 23 is of doubtful significance. Osseous structures demonstrate degenerative changes without an acute osseous abnormality. Mild to moderate changes of centrilobular emphysema noted. High-resolution images demonstrate subpleural reticulations with minimal bronchiectasis in the bilateral lower lobes. Interlobular septal thickening noted. Overall, the appearance is unchanged from prior study. Most likely this is the sequela of a prior infection. Limited evaluation of the upper abdomen is normal. IMPRESSION: * Mild to moderate changes of centrilobular emphysema. * Subpleural reticulations with minimal bronchiectasis in the bilateral lower lobes. Overall, the appearance is unchanged from prior study. Most likely this is the sequela of a prior infection. * 2 mm left apical nodule of doubtful significance. Per Fleischner Society Guidelines,if patient is low risk for malignancy, no routine follow-up imaging is recommended. If patient is high risk for malignancy, a non-contrast Chest CT at 12 months is optional. If performed and the nodule is stable at 12 months, no further follow-up is recommended. These guidelines do not apply to immunocompromised patients and patients with cancer. Follow up in patients with significant comorbidities as clinically warranted. For lung cancer screening, adhere to Lung-RADS guidelines. Reference: Radiology. 2017; 284(1):228-43. * This exam was performed according to our departmental dose-optimization program which includes automated exposure control, adjustment of the mA and/or kV according to patient size and/or use of iterative reconstruction technique. Electronically signed by: Jean Velasquez MD 08/08/2024 08:55 AM [facility] Dictated By: Jean Velasquez MD 08/08/24854 Signed By: Jean Velasquez MD 08/08/24857 TD/TT: 08/08/24854 Tech: [id number] cc: DANNA; CHIN* Lin Ornelas MD; MD ESTRELLITA Yang MD [address] [place], [address], [facility] [employer] 09/13/2024 11:11:59 Problems Name Problem SNOMED Code Status Onset Date Resolution Date Notes Provider Name and Address Organization Details Recorded Time Prostatec flaquita Active h/o prostate cancer ESTRELLITA BANUELOS MD [address] [place], [address] , [facility] [employer] 3 12:34:28 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 Yi christianson [facility] 2 14:23:14 Obstructi ve sleep apnea syndrome 01136579 Active [facility] 3 13:42:10 Urinary bladder stone 98548655 Active [facility] 3 13:42:44 Malignant neoplasm of skin 904087070 Active [facility] 3 13:42:54 History of SARS-CoV- 2 58244438805 1019012 Active [facility] 3 13:43:14 Pneumonia 527107682 [facility] 3 13:43:21 Essential hypertens ion 93244467 Active 2022 ESTRELLITA BANUELOS MD [address] [place] [address], [phone] , [facility] 3 12:31:54 Interstit ial lung disease 979963164 Active 2024 ESTRELLITA BANUELOS MD [address] [place] [address], [phone] , [facility] 5 11:29:16 Problem Notes None recorded. Procedures Surgical History Date Name Laterality Status Provider Name and Address Organization Details Recorded Time 08/07/20 20 Bilateral Ear Microscopy completed Riccardo Moreno DO [address] [place] [address], [phone], [facility] 08/07/2020 10:42:56 08/21/19 06 Cholecystectomy completed Brooke Hannah [facility] 01/08/2020 08:00:27 operation on prostate completed [facility] 01/06/2023 13:45:01 Appendectomy completed [facility] 01/06/2023 13:44:26 Imaging Results None recorded. Procedure Notes None recorded. Medical Equipment None Reported. Allergies No known drug allergies Medications Name Sig Start Date Stop Date Status Note LastModified by Organization Details LastModified Time Pain Reliever Extra Strength (acetaminop hen) 500 mg tablet 08/07 completed Not Available Not Available Not Available promethazin e-DM 6.25 mg-15 mg/5 mL oral syrup TAKE 5 ML BY MOUTH EVERY 4 HOURS NEEDED FOR COUGH 07/30 completed Not Available Not Available Not Available prednisone 10 mg tablet 07/30 completed Not Available Not Available Not Available polyethylen e glycol 3350 17 gram oral powder packet 08/07 completed Not Available Not Available Not Available hydrocodone 5 mg-acetamin ophen 325 mg tablet TK 1 T PO QID 08/07 completed Not Available Not Available Not Available prednisone 20 mg tablet 01/06 completed Not Available Not Available Not Available fluorouraci l 5 % topical cream APPLY TO SKIN OF LEFT CHEEK TWICE DAILY FOR 14 DAYS. 01/06 completed Not Available Not Available Not Available peg-electro lyte solution 420 gram oral solution 08/07 completed Not Available Not Available Not Available aspirin 81 mg tablet,nisha yed release 08/07 completed Not Available Not Available Not Available doxycycline monohydrate 100 mg tablet TAKE 1 TABLET BY MOUTH TWICE DAILY FOR 7 DAYS 01/06 completed Not Available Not Available Not Available tramadol 50 mg tablet 08/07 completed Not Available Not Available Not Available hydrocortis one 2.5 % topical cream with perineal applicator APPLY TOPICALLY TO THE AFFECTED AREA TWICE DAILY 01/06 completed Not Available Not Available Not Available ofloxacin 0.3 % ear drops INSTILL 5 DROPS INTO LEFT EAR BID 08/07 completed Not Available Not Available Not Available metoclopram gabo 5 mg tablet 08/07 completed Not Available Not Available Not Available povidone-io dine 10 % topical ointment 08/07 completed Not Available Not Available Not Available dexamethaso ne 2 mg tablet TAKE THREE TABLETS BY MOUTH ONE TIME DAILY AT BREAKFAST FOR 3 DAYS, THEN TAKE TWO TABLETS BY MOUTH ONE TIME DAILY FOR 3 DAYS, THEN TAKE ONE 01/06 completed Not Available Not Available Not Available cephalexin 500 mg capsule TAKE 1 CAPSULE BY MOUTH EVERY 8 HOURS FOR 5 DAYS 07/30 completed Not Available Not Available Not Available dexamethaso ne 4 mg tablet TAKE 1 AND 1/2 TABLETS BY MOUTH BEFORE BREAKFAST FOR 6 DAYS 01/06 completed Not Available Not Available Not Available lisinopril 10 mg tablet TAKE 1 TABLET BY MOUTH EVERY DAY active Not Available Not Available No t Available hydrocortis one 2.5 % topical cream APPLY TOPICALLY TO THE AFFECTED AREA TWICE DAILY 04/27 completed Not Available Not Available Not Available levofloxaci n 500 mg tablet TAKE 1 TABLET BY MOUTH DAILY 07/30 completed Not Available Not Available Not Available methylpredn isolone 4 mg tablets in a dose pack FOLLOW PACKAGE DIRECTION S FOR 6 DAYS 07/30 completed Not Available Not Available Not Available albuterol sulfate HFA 90 mcg/actuati on aerosol inhaler INHALE 1 PUFF BY MOUTH FOUR TIMES DAILY DIRECTED 07/30 completed Not Available Not Available Not Available amoxicillin 875 mg-potassiu m clavulanate 125 mg tablet TAKE 1 TABLET BY MOUTH EVERY 12 HOURS FOR 10 DAYS 07/30 completed Not Available Not Available Not Available oxycodone 5 mg tablet 08/07 completed Not Available Not Available Not Available Golytely 236 gram-22.74 gram-6.74 gram-5.86 gram oral solution Take 4000 mL by oral route. 08/07 completed Not Available Not Available Not Available Suprep Bowel Prep Kit 17.5 gram-3.13 gram-1.6 gram oral solution Take 354 mL by oral route. 08/07 completed Not Available Not Available Not Available fluticasone furoate 100 mcg-vilante rol 25 mcg/dose inhalation powder Inhale 1 puff every day by inhalatio n route. 04/27 completed Not Available Not Available Not Available Suflave 178.7 gram-7.3 gram-0.5 gram oral solution Take as directed. 09/13 completed Not Available Not Available Not Available Vitals Date Recorded Body height Body mass index (BMI) Body weight Body temperature Oxygen saturation Oxygen saturation in Arterial blood by Pulse oximetry Heart rate Systolic And Diastolic Provider Name and Address Organization Details Last Updated DateTime 5 185.42 cm 27 kg/m2 71490 g 97.5 [degF] 97 % 97 % 97 /min 122/74 mm[Hg] Michelle [facility] [place] 5 10:50:48 Date Recorded Body height Body mass index (BMI) Body weight Body temperature Oxygen saturation Oxygen saturation in Arterial blood by Pulse oximetry Heart rate Systolic And Diastolic Provider Name and Address Organization Details Last Updated DateTime 3 185.42 cm 26.2 kg/m2 03989.7 3 g 98.1 [degF] 98 % 98 % 85 /min 121/81 mm[Hg] [facility] 3 15:20:22 Date Recorded Body height Body mass index (BMI) Body weight Body temperature Oxygen saturation Oxygen saturation in Arterial blood by Pulse oximetry Heart rate Systolic And Diastolic Provider Name and Address Organization Details Last Updated DateTime 3 185.42 cm 26.2 kg/m2 72530.7 3 g 98.2 [degF] 98 % 98 % 71 /min 127/67 mm[Hg] Michelle [facility] 3 11:22:03 Date Recorded Body height Body mass index (BMI) Body weight Heart rate Oxygen saturation Oxygen saturation in Arterial blood by Pulse oximetry Provider Name and Address Organization Details Last Updated DateTime 4 185.42 cm 26.9 kg/m2 57373.8 4 g 78 /min 97 % 97 % Tarah duran [facility] 4 09:40:31 Social History Question Answer Notes LastModified by Organizat ion Details LastModified Time Tobacco Smoking Status Never Smoker Brooke christianson [facility] 01/08/2020 08:01:23 How Much Tobacco Do You Chew? None Information not available 08/07/2020 In The 14 Days Before Symptom Onset, Have You Had Close Contact With A Laboratory-confirm ed COVID-19 While That Case Was Ill? No Information n ot available 08/07/2020 In The 14 Days Before Symptom Onset, Have You Had Close Contact With A Person Who Is Under Investigation For COVID-19 While That Person Was Ill? No Information not available 08/07/2020 What Type Of Diet Are You Following? REGULAR [email or web address] Information n ot available 01/08/2020 Which Illicit Or Recreational Drugs Have You Used? None Information not available 08/07/2020 Marital Status [email or web address] Informatio n not available 01/08/2020 What Was The Date Of Your Most Recent Tobacco Screening? 07/07/2023 [email or web address] Information not available 07/07/2023 How Many Children Do You Have? 3 [email or web address] Information not available 01/08/2020 Are You Sexually Active? No [email or web address] Information not available 01/08/2020 How Much Tobacco Do You Smoke? No Information not available 08/07/2020 Snorkel/SCUBA No Informat ion not available 08/07/2020 General Stress Level Low Information not available 01/08/2020 Swim Often No Information not available 08/07/2020 Sex: Unknown Functional Status Question Answer Note LastModified by Organization D etails LastModified Time What is your level of alcohol consumption? None [email or web address] Information not available 01/08/2020 Are you currently employed? No Information not available 08/07/2020 Are you able to care for yourself independently? Yes Information not available 08/07/2020 What is your occupation? Retired Information not available 08/07/2020 What is your exercise level? Moderate [email or web address] Information not available 01/08/2020 Mental Status None recorded. Family History Relationship Description Onset Age of this Age Resolved Age Notes LastModified by Organization Details LastModified Time Father Family history of malignant neoplasm [email or web address] Not available 2019 07:59:35 Mother Family history of malignant neoplasm [email or web address] Not available 2019 07:59:35 Brother Heart disease [email or web address] Not available 01/06 13:43:45 Brother Essential hypertension [email or web address] Not available 13:43:53 Brother Malignant tumor of colon Not available 09:41:34 Medical History Condition Response High Blood Pressure Y KIDNEY STONES Y Cancer Y Pneumonia Y Sleep Apnea Y TUBERCULOSIS Y Past Encounters Encounter ID Performer Location Encounter Start Date Encounter Closed Date Diagnosis/Indication Diagnosis SNOMED-CT Code Diagnosis ICD10 Code Diagnosis Note [id number] DO YASSINE Calderón_KIMBERLI STUART, DO [address] [place] [address] [place] [address] 01/08/2020 07:52:32 01/08/2020 10:07:59 Hemorrhoids 59470766 K64.9 Prior reported laser therapy. Recently with return of mild symptoms particular ly discomfort and small amounts of blood on the toilet paper. Avoid straining, use stool softeners as needed and evaluate further during colonoscop y. Family his tory of cancer of colon 747192041 Z80.0 Brother in his 50s. Screening for malignant neoplasm of colon 566618105 Z12.11 Increased risk given family history of colon cancer as above. Last colonoscop y in 2011. He is due for repeat evaluation now. All risk and benefits were discussed and he is agreeable. [id number] Riccardo Moreno, DO [facility] [address] [address] , [place] [address] 08/07/2020 09:38:02 08/07/2020 10:38:03 Sensorineural hearing loss of bilateral ears 002994794 H90.3 Bilateral, per history, improved with hearing aids serviced by [employer] Conductive hearing loss 71390478 H90.2 Left, improving following acute infective otitis externa Acute infe ctive otitis externa 776732710 H60.399 Left, resolving after course of ofloxacin. Additional debridemen t was performed today followed by topical applicatio n of boric acid/cipro floxacin/d examethaso ne powder. [id number] Riki Pike MD [facility] [address] [facility] 1 [facility] [address] [place] [address] 05/23/2022 14:18:38 05/23/2022 14:43:47 Hemorrhoids 02811993 K64.9 Family his tory of cancer of colon 774836392 Z80.0 Brother in his 50s. Screening for malignant neoplasm of colon 483170159 Z12.11 [id number] ESTRELLITA BANUELOS MD [facility] [address] [facility] 1 [facility] [place] [address] 01/06/2023 13:30:34 01/06/2023 15:19:55 Pneumonia caused by SARS-CoV-2 [id number] 96127294 J12.82 He is finally feeling better but he is still pretty sick. He is still requires oxygen. He was crackles in the lung bases that might be from the COVID or form some pre-existi ng interstiti al lung disease given his occupation al exposures. My advice is for him to slowly increase his activity levels as tolerated. If he gets any worse go to the hospital. Otherwise expect slow improvemen t over the next few weeks. I will check him back in 2 weeks. [id number] ESTRELLITA BANUELOS MD [facility] [address] [place] [address] [place] [address] 01/20/2023 13:00:23 01/20/2023 13:33:51 Pneumonia caused by SARS-CoV-2 [id number] 47123707 J12.82 He is slowly feeling better. No longer desaturate s walking. He still has crackles in the lung bases that might be from the COVID or form some pre-existi ng interstiti al lung disease given his occupation al exposures. My advice is for him to continue slowly increase his activity levels as tolerated. . Otherwise expect slow improvemen t over the next few weeks. I will check him back in 3 months. Stop Trelegy [id number] ESTRELLITA BANUELOS MD [facility] [address] [place] [address] [place] [address] 04/27/2023 13:33:37 04/27/2023 14:00:11 Pneumonia caused by SARS-CoV-2 [id number] 41229867 J12.82 He feels fine.. He still has crackles in the lung bases that might be from the COVID but more likely I suspect some pre-existi ng interstiti al lung disease given his occupation al exposures. [facility] [id number] ESTRELLITA BANUELOS MD [facility] [address] [place] [address] [place] [address] 05/17/2023 12:13:43 05/17/2023 15:15:42 Dyspnea 684144677 R06.00 [id number] ESTRELLITA BANUELOS MD [facility] [address] [place] [address] [place] [address] 06/05/2023 15:12:21 06/05/2023 15:41:13 Interstitial lung disease 334771724 J84.9 He has progressiv e phenotype interstiti al lung disease. The LD pattern is UIP. Although there is no honeycombi ng there is traction bronchiect asis consistent with fibrosis. This could be IPF for could be due to his previous dust exposures. He does not have any symptoms of connective tissue disease has not used any drugs known to cause interstiti al lung disease. There is no home exposures to suggest hypersensi tivity pneumoniti s. Will check ILD serologies and a fall negative consider antifibrot ic. [id number] ESTRELLITA BANUELOS MD [facility] [address] [facility] [address] [place] [address] 07/07/2023 11:05:31 07/07/2023 12:04:45 Interstitial lung disease 362768012 J84.9 He has UIP pattern interstiti al lung disease. Although there is no honeycombi ng there is traction bronchiect asis consistent with fibrosis.T his could be IPF for could be due to his previous industrial dust exposures or residua of COVID.He does not have any serolgies or symptoms of connective tissue disease has not used any drugs known to cause interstiti al lung disease. There is no home exposures to suggest hypersensi tivity pneumoniti s. Will recheck in 1 year to see if he has a progressiv e phenotype [id number] DO FESTUS FAUSTIN DO [address] [facility] 1 [place] [id number] 07/30/2024 09:16:46 07/30/2024 10:57:46 Screening for malignant neoplasm of colon 721926544 Z12.11 1) 73-year-ol d male with a history of colon polyps and a family history of colon cancer in first-degr ee relatives. His last colonoscop y was in 2019, and was advised to repeat in 3 years. Will update now.2) The risks (including but not limited to aspiration , perforatio n, bleeding, missing lesions, potential medication interactio ns, cardiac and pulmonary problems, and infection) , versus the benefits of having the procedure were discussed with the patient and the patient was agreeable to proceed at this time.3) Patient was advised to stop full-dose Aspirin, Plavix, Coumadin and all blood thinners at least 5 days prior to procedure. Stop Xarelto, Eliquis, Pradaxa and Cilostazol for 2-3 days prior to procedure. 4) He reports being sensitive to anesthesia . I reminded the patient to discuss this with the anesthesia department provider during pre-op. Family his tory of cancer of colon 164146630 Z80.0 1) He clarifies that his brother had colon cancer, diagnosed at age 64. History of polyp of colon 061171275 Z86.0100 1) Fragments of a tubulovill ous adenoma was found in the sigmoid region and a tubular adenoma in the transverse colon during his last colonoscop y in January 2020. Will update as above. [id number] ESTRELLITA BANUELOS MD [facility] [address] [facility] [address] [place] [address] 09/13/2024 10:40:56 09/13/2024 11:26:20 Interstitial lung disease 515679557 J84.9 He has UIP pattern interstiti al lung disease. Although there is no honeycombi ng there is traction bronchiect asis consistent with fibrosis. There is concomitan t emphysema. This could be IPF or could be due to his previous industrial dust exposures or residua of COVID. He does not have any serolgies or symptoms of connective tissue disease has not used any drugs known to cause interstiti al lung disease. There is no home exposures to suggest hypersensi tivity pneumoniti s. Pulmonary function tests -albeit done on different machines- and CAT scan are unchanged from April 2023 until August 2024 so as of yet no sign of progressiv e phenotype. Will recheck PFTs in 1 year. Health Concerns Section Related Observation LastModified by Organization Detai ls LastModified Time None Recorded Concern Status LastModified by Organization Details LastModified Time None Recorded Advance Directives Directive None Recorded Payers Insurance Date Sequence Insurance Name Policy Number Policy Peters Covered Member ID Peters Member ID Guarantor Name 07/09/2024 2 [employer]: [place] [place] - MEDIGAP PLAN C (MEDICARE SUPPLEMENT) [id number] Ady N Colunga [id number] Ady N Colunga 09/08/2024 2 [place] [id number] Ady N Colunga [id number] Ady N Colunga 07/09/2024 2 [place] [id number] Ady Colunga [id number] Ady Colunga 05/14/2024 3 *SELF PAY* Apollo Colunga 09/08/2024 1 [place] Ady Colunga [id number] Ady Colunga 07/09/2024 2 [facility] [id number] Ady Colunga [id number] Ady Colunga 07/24/2020 3 *SELF PAY* Apollo Colunga Notes Date Note Type Note Provider Name and Address Organization Details Recorded Time 06/05/2023 text/html January 06, 2023 new patient visit: Ady was admitted at [facility] December 17, 2022 with COVID pneumonia. Admitting chest x-ray portable was negative He was in the hospital for about 8 days. He was sent home on oxygen. After he got home he caught the flu along with the rest of his family and had diarrhea. 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 January 06, 2023 new patient visit with myself: He says the last 2 days have been the best as he is had so far he is still very weak and tired and short of breath. Still on oxygen. He desaturates when he walks without the oxygen He had a long exposure to occupational fumes and dusts. 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 There is an older CT chest in the PACS system that might have some interstitial lung disease in the lung bases versus gravitational compression He has obstructive sleep apnea on CPAP. He is finally feeling better but he is still pretty sick. He is still requires oxygen. He was crackles in the lung bases that might be from the COVID or form some pre-existing interstitial lung disease given his occupational exposures. My advice is for him to slowly increase his activity levels as tolerated. If he gets any worse go to the hospital. Otherwise expect slow improvement over the next few weeks. I will check him back in 2 weeks. January 20, 2023: He is getting better. Oxygen saturation is staying in the mid 90s with exertion without oxygen. He still uses oxygen at night. He is not coughing up anything. He had been using Trelegy which he can stop. Still has crackles on lung exam April 27, 2023: He feels fine. Returned the oxygen. Not short of breath. 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 No coughing. Still has crackles. Will check high-resolution CT and PFT for underlying ILD June 05, 2023: Here to review CT and PFT. CT scan shows peripheral/subpleural basilar predominant reticulation with traction bronchiectasis. No honeycombing, ground-glass opacities or mosaicism or peribronchial distribution. Pulmonary function tests show reduced diffusion capacity at 59% of predicted. He has no history of connective tissue disease. No water mold feather exposure. No drugs known to cause interstitial lung disease. Did have a long occupational history of dust exposures. Welding. No family history of interstitial lung disease. He is not been a smoker. ESTRELLITA BANUELOS MD [address] [place] [address], [phone], [facility] [place] 06/05/2023 15:44:57 07/07/2023 text/html January 06, 2023 new patient visit: Ady was admitted at [facility] December 17, 2022 with COVID pneumonia. Admitting chest x-ray portable was negative. He was in the hospital for about 8 days. He was sent home on oxygen. After he got home he caught the flu along with the rest of his family and had diarrhea. 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 January 06, 2023 new patient visit with myself: He says the last 2 days have been the best as he is had so far, he is still very weak and tired and short of breath. Still on oxygen. He desaturates when he walks without the oxygen He had a long exposure to occupational fumes and dusts. 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 There is an older CT chest in the PACS system that might have some interstitial lung disease in the lung bases versus gravitational compression He has obstructive sleep apnea on CPAP. He is finally feeling better but he is now well. He is still requires oxygen. He was crackles in the lung bases that might be from the COVID or form some pre-existing interstitial lung disease given his occupational exposures. My advice is for him to slowly increase his activity levels as tolerated. If he gets any worse go to the hospital. Otherwise expect slow improvement over the next few weeks. I will check him back in 2 weeks. January 20, 2023: He is getting better. Oxygen saturation is staying in the mid 90s with exertion without oxygen. He still uses oxygen at night. He is not coughing up anything. He had been using Trelegy which he should stop. Still has crackles on lung exam April 27, 2023: He feels fine. Returned the oxygen. Not short of breath. 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 No coughing. Still has crackles. Will check high-resolution CT and PFT for underlying ILD June 05, 2023: Here to review CT and PFT. CT scan shows peripheral/subpleural basilar predominant reticulation with traction bronchiectasis. No honeycombing, ground-glass opacities or mosaicism or peribronchial distribution. Pulmonary function tests show reduced diffusion capacity at 59% of predicted. He has no history of connective tissue disease. No water mold feather exposure. No drugs known to cause interstitial lung disease. Did have a long occupational history of dust exposures. Welding. No family history of interstitial lung disease. He is not been a smoker. ILD serology ordered. Jul 07, 2023: ILD serology negative for connective tissue disease ESTRELLITA BANUELOS MD [address] [place] [address], [phone], [facility] [place] 07/07/2023 11:36:08 07/30/2024 text/html ROS as noted in the HPI 73 year old male with a family history of colon cancer in a first degree relative (his brother, diagnosed in his 60's), status post cholecystectomy in 2005, colon polyps, and hemorrhoids, was referred by his PCP for further evaluation.He does report having a history of external hemorrhoids for which he has been using 2.5% hydrocortisone rectal cream as needed to good effect. He says that his symptoms are generally under control as long as he does not consume spicy foods. Denies any melena, hematochezia, changes in stool size caliber, sleep apnea, significant weight fluctuations, diabetes, rectal bleeding, or abdominal pain. Denies any reflux or heartburn symptoms.Last colonoscopy was performed on 01/21/[address] Stuart.Impression showed 1) One diminutive polyp in the ascending colon, removed with a cold biopsy forceps. Resected and retrieved 2) One 9 to 10mm polyp in the sigmoid colon, removed with a hot snare. Resected and retrieved 3) Mild diverticulosis in the sigmoid colon. There was no evidence of diverticular bleeding. 4) Non-bleeding external and internal hemorrhoids.Pathology showed 1) Sigmoid polyp - fragments of tubulovillous adenoma 2) Transverse polyp - tubular adenoma.Colonoscopy recommendations included repeating the colonoscopy in five years for surveillance based on pathology results (changed to three years after a review of pathology). CHIKI DE LA ROSA, [facility] [address] [place], [phone], [facility] [place] 07/30/2024 10:10:27 09/13/2024 text/html January 06, 2023 new patient visit: Ady was admitted at [facility] December 17, 2022 with COVID pneumonia. Admitting chest x-ray portable was negative. He was in the hospital for about 8 days. He was sent home on oxygen. After he got home he caught the flu along with the rest of his family and had diarrhea. 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 January 06, 2023 new patient visit with myself: He says the last 2 days have been the best as he is had so far, he is still very weak and tired and short of breath. Still on oxygen. He desaturates when he walks without the oxygen He had a long exposure to occupational fumes and dusts. 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 There is an older CT chest in the PACS system that might have some interstitial lung disease in the lung bases versus gravitational compression He has obstructive sleep apnea on CPAP. He is finally feeling better but he is now well. He is still requires oxygen. He was crackles in the lung bases that might be from the COVID or form some pre-existing interstitial lung disease given his occupational exposures. My advice is for him to slowly increase his activity levels as tolerated. If he gets any worse go to the hospital. Otherwise expect slow improvement over the next few weeks. I will check him back in 2 weeks. January 20, 2023: He is getting better. Oxygen saturation is staying in the mid 90s with exertion without oxygen. He still uses oxygen at night. He is not coughing up anything. He had been using Trelegy which he should stop. Still has crackles on lung exam April 27, 2023: He feels fine. Returned the oxygen. Not short of breath. 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 No coughing. Still has crackles. Will check high-resolution CT and PFT for underlying ILD June 05, 2023: Here to review CT and PFT. CT scan shows peripheral/subpleural basilar predominant reticulation with traction bronchiectasis. No honeycombing, ground-glass opacities or mosaicism or peribronchial distribution. Pulmonary function tests show reduced diffusion capacity at 59% of predicted. He has no history of connective tissue disease. No water mold feather exposure. No drugs known to cause interstitial lung disease. Did have a long occupational history of dust exposures. 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 No family history of interstitial lung disease. He is not been a smoker. ILD serology ordered. Jul 07, 2023: ILD serology negative for connective tissue disease ESTRELLITA BANUELOS MD [address] [place], [address], [facility] 09/13/2024 11:29:36
--- OUTSIDE RECORDS SUMMARY | 2025-03-16 16:14 | XMS_ITS | Clinical Summary ---
Author Organization [facility] Address [address] [place] [address] Care Team Providers Care Qa Lead Name Role Phone Unavailable Primary Care Provider Unavailabl e Social History Tobacco Use Types Packs/Day Years Used Date Smoking Tobacco: Never Assessed Sex and Gender Information Value Date Recorded Sex Assigned at Not on file Legal Sex Male 5:43 PM EDT Gender Identity Not on file Sexual Orientation Not on file Plan of Treatment Not on file Insurance MEDICARE
--- OUTSIDE RECORDS SUMMARY | 2025-03-16 16:14 | XMS_ITS | Patient Health Record ---
Author Organization [facility] Auth Dept Address [address], [place] [address] Care Team Providers Care Wharf Worker Name Role Phone Nathan Banuelos MD Primary Care Provider Unavail Kamaljit Barfield Unavailable [phone] Reason For Referral No Information Encounters Encounter Location Date Provider Diagnosis [facility]- Kamaljit Peña MD [address] [facility] [address] [place] [address] 09/10/2024 Kamaljit Peña Plan Of Treatment No Information Insurance Providers Payer Name Payer Address Payer Phone Subscriber Number Group Number Insured Name Patient Relationship to Insured Coverage Start Date Coverage End Date Medicare [address] [place] [address] [phone] [id number] Flynn Colunga Self - patient is the insured [facility] [address] [place] [address] [id number] Flynn Colunga Self - patient is the insured
--- OUTSIDE RECORDS SUMMARY | 2025-03-16 16:14 | XMS_ITS ---
Author Organization [facility] Address [address] [place] [address] Phone Care Team Providers Care Database Security Administrator Name Role Phone Physician, Pcp Unknown Primary Care Provider Millie vailable Medicare Comprehensive Joint Replacement (CJR) Start date:04/15/2020 Continued Care and Services Coordination
--- OUTSIDE RECORDS SUMMARY | 2025-03-16 16:14 | XMS_ITS | Clinical Summary ---
Author Organization [facility] Address [address] [place] [address] Care Team Providers Care Press And Blow Machine Tender Name Role Phone Denise Peck DO Primary Care Provider [phone] Allergies No known active allergies Medications lisinopril [...] Plan of Treatment Not on file Insurance [facility] Care Teams Press And Blow Machine Tender Relationship Specialty Start Date End Date Denise Peck DO PCP - General Family Medicine 06/03/14
--- OUTSIDE RECORDS SUMMARY | 2025-03-16 16:14 | XMS_ITS | Encounter Summary ---
Author Organization [facility] stem Address [address] [place] [address] Care Team Providers Care Civil Engineer Land Development Name Role Phone Denise Peck DO Primary Care Provider [phone] Encounter Details Date Type Department Care Team (Late st Contact Info) Description 10/06/2014 Scanned Document [facility] Information Management - [facility] [address] [place] [address] Ordering, Generic Social History Tobacco Use Types [...] on filedocumented in this encounter Care Teams Civil Engineer Land Development Relationship Specialty Start Date End Date Denise Peck DO PCP - General Family Medicine 06/03/14 documented as of this encounter
[2025-03-16 16:17] VITALS: BP 122/79; PULSE 83; RESP 16; TEMP 36.7; O2SAT 99
--- NOTE | 2025-03-16 16:29 | ED_ITS ---
HPI - Chest Pain General: Chief Complaint: Chest Pain Stated Complaint: chest pain, called to return by cardiology Time Seen by Provider: 03/16/25 16:10 History of Present Illness: 74[facility] the [facility]. Patient was evaluated by this author earlier today for syncopal episode. Cardiology over read was concern for A-V dissociation based on loss of P wave on the initial EKG. Patient did start experiencing chest pressure after getting home from the emergency department. Related Data Home Medications ?Medication ?Instructions ?Recorded ?Confirmed lisinopril 10 mg tablet 10 mg PO DAILY 03/16/2502/19 Allergies Allergy/AdvReac Type Severity Reaction Status Date / Time No Known Allergies Allergy Unverified 03/16/25 12:30 Review of Systems General: Reports: 10 or more systems reviewed and unremarkable except in HPI and below Physical Exam Const: COMMON NORMALS: no acute distress, patient oriented x3, healthy appearing, alert and well nourished HENMT: COMMON NORMALS: normocephalic HEAD & SCALP: normocephalic Eye: COMMON NORMALS: EOMs intact bilaterally Neck/C-Spine: COMMON NORMALS: full ROM and supple Resp: COMMON NORMALS: normal respiratory effort, No retractions and clear to auscultation bilaterally AUSCULTATION: clear to auscultation bilaterally Cardio: COMMON NORMALS: regular rate, regular rhythm, No gallops present (Cardio) and No murmurs present (Cardio) RATE: regular rate RHYTHM: regular rhythm GI: COMMON NORMALS: Soft to palpation and non-tender PALPATION: Yes Soft to palpation Extremity: GENERAL: Yes normal exam except as noted Neuro: COMMON NORMALS: patient oriented x3 SENSORIUM/ORIENTATION: Yes alert Skin: COMMON NORMALS: no rashes or lesions noted GENERAL SKIN EXAM: no rashes or lesions noted Course Vital Signs: Vital signs: Vital Signs Temperature 98.1 F 03/16/25 16:17 Pulse Rate 83 03/16/25 16:17 Respiratory Rate 16 03/16/25 16:17 Blood Pressure 122/79 03/16/25 16:17 Pulse Oximetry 99 03/16/25 16:17 Oxygen Delivery Me thod Room Air 03/16/25 16:17 MDM - Chest Pain Medical Decision Making 74-year-old male presents back to the emergency department for evaluation for admission. Cardiology is concerned that he is having A-V dissociation. Given the new chest pressure that he is experiencing they are planning for echo and stress test tomorrow. He is n.p.o. at midnight in preparation for his test tomorrow. Case was discussed with Dr. Cornelius who agreed to admit the patient. No radiology studies performed this visit EKG Data EKG 1: Interpretation: Normal sinus rhythm with a rate of 87, TX 206, QRS 94, QTc 434, no ST segment elevation or depression Discharge Plan Discharge Patient Disposition: Admitted As Inpatient Clinical Impression: Auriculo ventricular dissociation, Chest pressure Condition: Stable Coding Level of Care Code ED Service Captain for Jackson Patel
--- NOTE | 2025-03-16 17:08 | P.HP_ITS ---
Providers/Chief Complaint Admitting Physician: Rani Cornelius MD Chief Complaint: chest pain, called to return by cardiology History of Present Illness Flynn Colunga is a 74 year old male with no significant medical history ex cept for recent COVID and high blood pressure controlled on lisinopril 10 mg once daily. Patient tells me since after the COVID he was taken off of lisinopril because the blood pressure has stayed normal. In the emergency room blood pressure was slightly elevated not much significant for systolic blood pressure in the high 140s diastolic at 99 Patient presents because of a syncopal event while at the restorationist and feeling quite exhausted and diaphoretic with a chest pain that he points at the location as the right side of the chest wall where he had fallen a couple of days ago hitting the right shoulder and feeling pains. At the emergency room EKG was done it was fairly unremarkable except for a missing P wave in 1-lead. Emergency room consulted cardiology and they were asked to see the patient when patient was discharged to go home because troponin negative EKG did not appear to be anything normal sinus rhythm. Upon getting home patient was called back by the cardiology that he needed to come back to the emergency room because of abnormal EKG. The cardiology told the ED doctor that the patient is having A-V dissociation Cardiology wanted patient n.p.o. after midnight to go for stress test tomorrow and 1 patient under observation placement. Patient at this time is going to go to stepdown unit for more close monitoring I have seen and evaluated patient patient looks tired somewhat pale looking otherwise unremarkable. Review of Systems Narrative: System review upon 10 organ review were entirely unremarkable except for fatigability Medications/Allergies Home Medications ?Medication ?Instructions ?Recorded ?Confirmed ?Last Taken ?Type lisinopril 10 mg tablet 10 mg PO DAILY 03/16/25/03/14 2 Months Ago History ~01/14/25 Allergies Allergy/AdvReac Type Severity Reaction Status Date / Time No Known Allergies Allergy Unverified 03/16/25 12:30 Vitals/I&O/Wt Last Vital Signs Temp 98.1 F 03/16/25 16:17 Pulse 83 03/16/25 16:17 Resp 16 03/16/25 16:17 BP 122/79 03/16/25 16:17 Pulse Ox 99 03/16/25 16:17 O2 Del Method Room Air 03/16/25 16:17 Weight last 48 hrs Weight 92.533 kg Physical Exam Narrative: General The patient is tiring appearing HEENT normocephalic atraumatic Neck neck is supple Cardiovascular heart rate is regular Lungs are clear Abdomen is soft nontender nondistended unremarkable Extremities are intact no edema has good pulses Neurology has no focality lab studies essentially unremarkable CMP CBC EKG was read as A-V dissociation by cardiology A&P Assessment and plan 1. Pressure in right side of chest: This is secondary to a fall to the right shoulder days ago with chest wall pain since then Will obtain x-ray of the right shoulder Follow-up with Ortho cardiac workup 2. Auriculo ventricular dissociation: N.p.o. after midnight - Troponin unremarkable - Patient be prepared to have stress test in the morning - Dr. Chambers cardiology on the case 3. Dizziness: Patient felt dizzy when passing out at the restorationist - Got to feeling better after getting a liter of IV fluid in the emergency room - Preliminary workup was negative patient was actually discharged from emergency room - Returned back to the emergency room upon cardiology call him back - Place under observation, n.p.o. after midnight, stress test to be done. - Patient to go to stepdown unit on a monitored bed - Echocardiogram be ordered - Stress test will be exercise nuclear stress test 4. Hypermagnesemia: Hypomagnesemia-trend lab 5. Acute dehydration: Will continue with gentle hydration for much volume contraction and provide volume Plan: GI and DVT prophylaxis in place PDMP PDMP Reviewed: Not Reviewed Attestations Medical Necessity Statement*: This patient with syncopal events with A-V dissociation would need a workup with cardiology under observation patient is qualified to be under observation for 23-hour stay. Coding Level of Care Code 86249 Diagnoses Pressure in right side of chest R07.89 Auriculo ventricular dissociation I45.89 Dizziness R42 Hypermagnesemia E83.41 Acute dehydration E86.0 Time Spent (min) 60
--- NOTE | 2025-03-16 17:18 | ECG_ITS ---
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
[2025-03-16 17:24] VITALS: BP 157/87; PULSE 90; O2SAT 33
--- NOTE | 2025-03-16 17:25 | PC.NURSE ---
Patient transferred from ED to CSU at 1725.
[2025-03-16] MEDS: heparin 5,000 unit/mL INJ 1 mL 5000 UNIT SUBCUT (18:26)
[2025-03-16 19:45] VITALS: BP 159/92; PULSE 81; RESP 16; TEMP 37.1; O2SAT 96
[2025-03-16 23:55] VITALS: BP 139/82; PULSE 73; RESP 18; TEMP 37.3; O2SAT 98
[2025-03-17] VITALS (7 sets, daily range): BP systolic 137–174; BP diastolic 69–100; PULSE 71–95; RESP 14–28; TEMP 36.8–37.4; O2SAT 95–99
--- NOTE | 2025-03-17 | ECG_ITS ---
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 Interpretive Statements Lung unchanged pre/post procedure; Intraprocedural shortness of breath; Symptoms resolved by discharge EXERCISE DATA: The patient was exercised by Jorden protocol. Baseline heart rate was 74 beats per minute. Baseline blood pressure was 144/87 millimeters of mercury. Maximal predicted heart rate was 145 beats per minute. Maximum heart rate achieved was 136, which was 93% of the maximum predicted heart rate. Maximum blood pressure was 163/87 millimeters of mercury. Total exercise time was 5 minutes 31 seconds. Maximum METs achieved was 7. The reason for ending the test was completion protocol. The patient complained of shortness of breath during the stress test, which then resolved at the end of the test. ELECTROCARDIOGRAM: BASELINE: Showed sinus rhythm, normal axis, no significant ST-T changes at the baseline noted. [] EXERCISE: At the peak exercise level, [] No significant ST-T changes suggestive of ischemia noted. [] RECOVERY: During the recovery period, heart rate dropped appropriately. No significant ST-T changes in the recovery suggestive of ischemia noted. [] CONCLUSION: 1. Exercise capacity was fair. 2. Heart rate response was [appropriate]. 3. Blood pressure response was [appropriate]. 4. Symptoms not suggestive of ischemia. 5. Electrocardiogram portion of the stress test was not suggestive of ischemia. 6. Nuclear scan will be documented separately. Electronically Signed On 03-17-2025 15:53:01 CDT by Eddi [id number] [id number]
[2025-03-17 04:09] LABS: Hematocrit 42.9 % (37-53); Hemoglobin 14.50 g/dL (11.27-16.99); Mean Corpuscular HGB Conc 33.8 g/dL (30-55); Mean Corpuscular Hemoglobin 30.9 pg (27-33); Mean Corpuscular Volume 91.5 fl (82-101); Nucleated Red Blood Cells % 0 %; Platelet Count 144 10^3/cmm (157-399); Red Blood Count 4.69 10^6/uL (3.85-5.65); White Blood Count 9.82 10^3/uL (3.29-11.43)
[2025-03-17 04:25] LABS: Lactic Sepsis W/Reflex 0.9 mmol/L (0.5-2.2)
[2025-03-17 04:26] LABS: Alanine Aminotransferase 25 U/L (0-41); Albumin Level 3.5 g/dL (3.5-5.2); Alkaline Phosphatase 78 U/L (40-130); Anion Gap 13.5 (5-19); Aspartate Amino Transferase 133 U/L (0-40); Blood Urea Nitrogen 10 mg/dL (8-23); Calcium 8.1 mg/dL (8.5-10.5); Carbon Dioxide 23 mmol/L (22-29); Chloride 108 mmol/L (98-107); Creatinine Clr Calc Pharmacy 85.2154; Globulin 2.0 g/dL (1.3-4.6); Glucose 95 mg/dL (65-115); Magnesium 2.2 mg/dL (1.7-2.3); Osmolality Calculated 291 mOsm/kg (285-295); Potassium 3.5 mmol/L (3.5-5.1); Sodium 141 mmol/L (136-145); Total Protein 5.5 g/dL (6.6-8.7)
[2025-03-17] MEDS: heparin 5,000 unit/mL INJ 1 mL 5000 UNIT SUBCUT ×2 (04:30→17:41)
--- NOTE | 2025-03-17 07:05 | PC.NURSE ---
Patient at stress test at shift change.
--- NOTE | 2025-03-17 08:05 | PC.NURSE ---
Patient returned to CSU from stress test at 0805.
--- NOTE | 2025-03-17 10:09 | P.PN_ITS ---
<Statement entered by Joshua Montague MD - 03/17/25 18:24> Patient was evaluated and cared for in conjunction with an advanced practice practitioner.? I personally examined the patient and reviewed the chart and all pertinent data including imaging, telemetry, and laboratory results.? I discussed the patient in detail with the advanced practice practitioner.? Please see? their note for complete consult note, testing results and agreed upon plan of care for the patient. Nuclear stress test today showed a large area of anterolateral and inferolateral infarction with a small to medium sized area of esdras-infarct ischemia. Will proceed with [facility] tomorrow Subjective 2 Subjective: No events noted overnight. He remains in sinus rhythm this morning. No chest pain or shortness of breath. Echocardiogram obtained last night: LVEF 57%, severe hypokinesis of the mid and basal anterolateral and inferolateral wall segments, grade 1 diastolic dysfunction. Mild aortic regurgitation, mild to moderate pulmonic regurgitation. Stress test obtained this morning pending read. Vitals/I&O/Wt Last Vital Signs Temp 99.2 F 03/17/25 08:00 Pulse 76 03/17/25 08:00 Resp 14 03/17/25 08:00 BP 165/91 03/17/25 08:00 Pulse Ox 99 03/17/25 08:00 O2 Del Method Room Air 03/17/25 08:00 03/16/25 03/17/25 03/17/25 22:59 06:59 14:59 Intake Total 120 / 120 1120 / 1120 Balance 120 / 120 1120 / 1120 Weight last 48 hrs Weight 202 lb 3.2 oz Weight 204 lb Physical Exam 2 Const: COMMON NORMALS: no acute distress and patient oriented x3 GENERAL APPEARANCE: cooperative and comfortable ORIENTATION/CONSCIOUSNESS: Yes awake, Yes oriented to person, Yes oriented to place and Yes oriented to time Chest: COMMONS NORMALS: normal inspection of the chest and normal palpation of entire chest wall CHEST: Yes Symmetrical chest wall rise Resp: COMMON NORMALS: normal respiratory effort, No retractions, No use of accessory muscles and clear to auscultation bilaterally EFFORT & INSPECTION: Yes symmetric chest movement AUSCULTATION: clear to auscultation bilaterally Cardio: COMMON NORMALS: regular rate, regular rhythm, S1 normal heart sound present, S2 normal heart sound present, No gallops present (Cardio), No clicks present (Cardio), No murmurs present (Cardio) and No rub (Cardio) RATE: r egular rate RHYTHM: regular rhythm HEART SOUNDS: S1 normal heart sound present and S2 normal heart sound present PERIPHERAL PULSES: radial pulses present Extremity: COMMON NORMALS: no pedal edema Neuro: COMMON NORMALS: patient oriented x3 and moves all extremities S ENSORIUM/ORIENTATION: Yes oriented to person, Yes oriented to place and Yes oriented to time Data 03/17/25 04:02 03/17/25 04:02 A&P Assessment and plan 1. Atrioventricular (AV) dissociation: 2. Hypertension: 3. Dizziness: 4. Chest pressure: Plan: The wall motion abnormality on the echocardiogram combined with the symptoms of dizziness and chest pain with AV disassociation noted on his twelve- lead EKG necessitate further ischemic workup with a coronary angiogram. The stress test was completed this morning and is pending read. Once all results are received we will discuss with the patient. PDMP PDMP Reviewed: Not Reviewed Attestations 2 Medical Necessity Statement*: Ischemic workup Coding Level of Care Code Acute Code for Chg Fwd Diagnoses Atrioventricular (AV) dissociation I45.89 Hypertension I10 Dizziness R42 Chest pressure R07.89
--- NOTE | 2025-03-17 16:58 | P.PN_ITS ---
Subjective 2 Subjective: echo/stress test today. Per cardiology, plan for cath in the AM. Vitals/I&O/Wt Last Vital Signs Temp 99.3 F 03/17/25 16:00 Pulse 74 03/17/25 16:00 Resp 28 H 03/17/25 16:00 BP 174/100 03/17/25 16:00 Pulse Ox 97 03/17/25 16:00 O2 Del Method Room Air 03/17/25 16:00 03/17/25 03/17/25 03/17/25 06:59 14:59 22:59 Intake Total 1600 / 1600 Balance 1600 / 1600 Weight last 48 hrs Weight 91.716 kg Weight 92.533 kg Physical Exam 2 Const: COMMON NORMALS: no acute distress, average body habitus and patient oriented x3 HENMT: COMMON NORMALS: normocephalic and atraumatic HEAD & SCALP: n ormocephalic and atraumatic Eye: COMMON NORMALS: Equal, round and reactive pupils present PUPIL: Yes Equal, round and reactive pupils present Neck/C-Spine: COMMON NORMALS: supple Resp: COMMON NORMALS: clear to auscultation bilaterally AUSCULTATION: clear to auscultation bilaterally Cardio: COMMON NORMALS: regular rate, regular rhythm, No gallops present (Cardio), No murmurs present (Cardio) and No rub (Cardio) RATE: regular rate RHYTHM: regular rhythm GI: COMMON NORMALS: Normal to inspection, nondistended, normoactive bowel sounds present Extremity: COMMON NORMALS: full ROM and no pedal edema Neuro: COMMON NORMALS: patient oriented x3 and CN's II-XII intact bilaterally Psych: COMMON NORMALS: mental status grossly normal Skin: COMMON NORMALS: no rashes or lesions noted GENERAL SKIN EXAM: no rashes or lesions noted Data 03/17/25 04:02 03/17/25 04:02 A&P Assessment and plan 1. Atrioventricular (AV) dissociation: 2. Pressure in right side of chest: 3. Chest pressure: 4. Dizziness: 5. Hypermagnesemia: 6. Acute dehydration: Plan: 74 year old male presenting with right sided chest pressure. Auriculo ventricular dissociation: Pressure in right side of chest: - Troponin unremarkable - Echo complete with normal EF of 57%, severe hypokinesis of mid and basal anterolateral and inferolateral wall segments. GIDD - S/P stress test today, read pending - Dr. Chambers cardiology on the case - per cardiology: cath planned for the AM. Right shoulder pain - This is secondary to a fall to the right shoulder days ago with chest wall pain since then - full ROM this AM without significant pain, no need for x-ray - consider outpatient ortho or sports medicine follow up if ongoing issues. Dizziness: Patient felt dizzy when passing out at the zoroastrianism - better after getting a liter of IV fluid in the emergency room - Preliminary workup was negative patient was actually discharged from emergency room - Returned back to the emergency room upon cardiology call him back 4. Hypermagnesemia: - normal currently after IV fluids 5. Acute dehydration: - Will continue with gentle hydration with plans for contrast testing in AM - creatinine in normal range. Plan: GI and DVT prophylaxis in place Disposition - cath in the AM. PDMP PDMP Reviewed: Not Reviewed Attestations 2 Medical Necessity Statement*: cath in the AM. Coding Level of Care Code Acute Code for [facility] Fwd Diagnoses Atrioventricular (AV) dissociation I45.89 Pressure in right side of chest R07.89 Chest pressure R07.89 Dizziness R42 Hypermagnesemia E83.41 Acute dehydration E86.0
[2025-03-17] MEDS: hyDRALAzine 20 mg/mL INJ 1 mL 10 MG IVP (18:28)
--- NOTE | 2025-03-17 20:26 | NMCV_ITS ---
NM gabo perf SPECT r/s* [id number] [address]ung[address] Age: 74 Gender: M : 1950 Exam Date: 03/17/2025 06:40 Ordering Phys: Rani Cornelius MD Technologist: EDSON Hernandez Exam Location: [facility] Indications: cp STRESS TEST Please see separate stress test report in [facility] for full findings IMAGE PROTOCOL Rest/Stress 1 Exercise Day Radiopharmaceutical Dose (mCi) Administration Site Administered by Rest: Tc-99m 10.6 IV Brittany Elizondo, INFORMATICS EDUCATOR Sestamibi Stress:Tc-99m 32.5 IV Brittany Larsengle, INFORMATICS EDUCATOR Sestamibi Rest: 17-Mar-2025 60 Discovery 630 Stress: 17-Mar-2025 15 Discovery 630 Radiopharmaceutical was injected at 87 % maximum heart rate. Images obtained in supine and prone position. SPECT RESULTS Technical Quality: Excellent Raw Data Analysis: Normal Image Corrections: No attenuation or motion correction applied Summed Stress Score: 13 Summed Rest Score: 13 Summed Difference Score: 0 PERFUSION FINDINGS There is a large area of severely reduced tracer counts in the mid and basal anterolateral and inferolateral wall segments which is partially reversible on the resting images consistent with a mixed transmural and nontransmural myocardial infarction with a small to medium sized area of esdras-infarct ischemia. FUNCTIONAL RESULTS (calculated via Gated SPECT) Stress Image LV EF (%): 65 Stress EDV (mL):124 TID: 1.07 Stress ESV (mL):43 FUNCTIONAL FINDINGS: Hypokinesis of the anterolateral and inferior lateral pearson with overall normal ejection fraction of 65%. IMPRESSIONS 1. Abnormal myocardial perfusion stress test showing a large infarct in the anterolateral and inferior lateral pearson with a small to medium sized area of esdras-infarct ischemia. 2. Overall normal left ventricular ejection fraction of 65% 2. Regional wall motion abnormality with hypokinesis of the anterolateral and inferior lateral pearson. Joshua Montague MD, FACC (Electronically Signed) Final Date: 17 March 2025 13:30 S
[2025-03-18] VITALS (7 sets, daily range): BP systolic 135–158; BP diastolic 82–94; PULSE 77–98; RESP 19–28; TEMP 36.6–37.8; O2SAT 95–97
[2025-03-18 02:54] LABS: Hematocrit 44.6 % (37-53); Hemoglobin 15.10 g/dL (11.27-16.99); Mean Corpuscular HGB Conc 33.9 g/dL (30-55); Mean Corpuscular Hemoglobin 31.0 pg (27-33); Mean Corpuscular Volume 91.6 fl (82-101); Nucleated Red Blood Cells % 0 %; Platelet Count 153 10^3/cmm (157-399); Red Blood Count 4.87 10^6/uL (3.85-5.65); White Blood Count 11.35 10^3/uL (3.29-11.43)
[2025-03-18 04:50] LABS: Anion Gap 15.5 (5-19); Blood Urea Nitrogen 10 mg/dL (8-23); Calcium 8.3 mg/dL (8.5-10.5); Carbon Dioxide 23 mmol/L (22-29); Chloride 105 mmol/L (98-107); Creatinine Clr Calc Pharmacy 84.2873; Glucose 117 mg/dL (65-115); Magnesium 2.2 mg/dL (1.7-2.3); Osmolality Calculated 290 mOsm/kg (285-295); Potassium 3.5 mmol/L (3.5-5.1); Sodium 140 mmol/L (136-145)
--- NOTE | 2025-03-18 08:59 | W.PM.OPSUD ---
Surgery/Procedure H&P Update DATE OF PROCEDURE: March 18, 2025 DATE H&P PERFORMED: 03/16/25 H&P UPDATE INFORMATION: I have reviewed H&P completed within last 30 days, I have examined patient prior to procedure and Changes to prior documentation as noted here CHANGES TO PREVIOUS DOCUMENTATION: Patient had stress test that is abnormal. Plan for left heart cath with possible PCI PREOP DIAGNOSIS: Syncope/ abnormal stress test/chest pain PRIMARY INDICATION FOR PROCEDURE: Syncope/ abnormal stress test/chest pain PLANNED PROCEDURE: Operation Date: 03/18/25 10:00 Proposed Procedures p Cardiac Catheterization(Left) - Brant Zimmer M.D Possible percutaneous coronary intervention PATIENT REASSESSED PRIOR TO SEDATION, WITH NO CHANGE NOTED: Yes PHYSICAL EXAM: alert, oriented x 3, clear to auscultation bilaterally and regular rate & rhythm AIRWAY EVAL/ANESTHESIA PLAN: normal airway, ASA III, Local Anesthesia, Risks, benefits & alternatives of sedation and/or procedure discussed and Patient agrees to continue as planned ADDITIONAL INFORMATION: Moderate sedation
--- NOTE | 2025-03-18 09:16 | P.PN_ITS ---
<Statement entered by Joshua Montague MD - 03/18/25 21:08> Patient was evaluated and cared for in conjunction with an advanced practice practitioner.? I discussed the patient in detail with the advanced practice practitioner.? Patient comfortable this afternoon. Awaiting transfer to [facility] for CABG. Continue current medical regimen. Subjective 2 Subjective: No chest pain or shortness of breath today. Coronary angiogram planned for 0900. Creatinine 0.9. Post procedure update: Patient has patent left main, severe LAD stenosis, dual LAD system large diagonal which is patent, severe left circumflex stenosis, severe OM1 stenosis, significant PDA stenosis. Plan is to transfer for CABG, Dr. Arzate at [facility] in [place] has accepted the patient. Vitals/I&O/Wt Last Vital Signs Temp 98.0 F 03/18/25 07:58 Pulse 77 03/18/25 07:58 Resp 20 H 03/18/25 07:58 BP 149/93 03/18/25 07:58 Pulse Ox 96 03/18/25 07:58 O2 Del Method Room Air 03/18/25 02:27 03/17/25 03/18/25 03/18/25 22:59 06:59 14:59 Intake Total 270 / 1870 Balance 270 / 1870 Weight last 48 hrs Weight 198 lb 14.4 oz Weight 202 lb 3.2 oz Weight 204 lb Physical Exam 2 Const: COMMON NORMALS: no acute distress and patient oriented x3 GENERAL APPEARANCE: cooperative and comfortable ORIENTATION/CONSCIOUSNESS: Yes awake, Yes oriented to person, Yes oriented to place and Yes oriented to time Chest: COMMONS NORMALS: normal inspection of the chest and normal palpation of entire chest wall CHEST: Yes Symmetrical chest wall rise Resp: COMMON NORMALS: normal respiratory effort, No retractions, No use of accessory muscles and clear to auscultation bilaterally EFFORT & INSPECTION: Yes symmetric chest movement AUSCULTATION: clear to auscultation bilaterally Cardio: COMMON NORMALS: regular rate, regular rhythm, S1 normal heart sound present, S2 normal heart sound present, No gallops present (Cardio), No clicks present (Cardio), No murmurs present (Cardio) and No rub (Cardio) RATE: r egular rate RHYTHM: regular rhythm HEART SOUNDS: S1 normal heart sound present and S2 normal heart sound present PERIPHERAL PULSES: radial pulses present Extremity: COMMON NORMALS: no pedal edema Neuro: COMMON NORMALS: patient oriented x3 and moves all extremities S ENSORIUM/ORIENTATION: Yes oriented to person, Yes oriented to place and Yes oriented to time Data 03/18/25 02:42 03/18/25 02:42 A&P Assessment and plan 1. Atrioventricular (AV) dissociation: 2. Chest pressure: 3. Hypertension: 4. Abnormal stress test: Plan: Stable from a cardiovascular perspective. Will update after coronary angiogram. Update: Anticipate transfer to [facility]. I have called the [facility] transfer center, awaiting bed assignment. Per Dr Arzate, anticipated CABG on . Two hours after his TR band is removed we will start heparin infusion due to sluggish flow. Continue lisinopril. PDMP PDMP Reviewed: Not Reviewed Attestations 2 Medical Necessity Statement*: Ischemic workup, A-V dissociation Coding Level of Care Code Acute Code for Chg Fwd Diagnoses Atrioventricular (AV) dissociation I45.89 Chest pressure R07.89 Hypertension I10 Abnormal stress test R94.39
--- NOTE | 2025-03-18 09:16 | PC.CHAP ---
Pastoral Care Encounter/Spiritual Assessment Type of Contact [] Declined solar sales representative visit [] Patient/Family/Request visit [] Outpatient visit [] Follow-up visit [] Physician referral [] Code/Alert [x] Routine visit [] Staff referral [] Actively dying [] Patient sleeping [x] Family support [] [] Out of room [] Palliative care [] [] Receiving care in room [] Pre-surgical visit [] Trauma [] Long length of stay [] ICU visit [] Other: Relational/Emotional Strength [x] Patient feels connected with others/family/visitors/staff [] Distress [] Loneliness/isolation [] Abandonment Spirituality of Patient [x] Person of Esha [x] Attends Anabaptism of their Esha [x] Believes in Prayer [x] Reads Bible or Tenriism materials [] There are Spiritual issues to be addressed Salvationist Interventions [x] Prayer [x] Active listening [] Non-anxious presence [x] Spiritual/emotional support [] Crisis/trauma care [] Spiritual counseling [] Bereavement support [] Provided bereavement packet [] Provided Bible/devotional materials [] Provided toy/stuffed animal, coloring book to patient or family member [] Provided Communion [] Anointing/[place] [] Salvation [x] Completed spiritual assessment [] Other: Impact on Illness or Injury [] Angry [] Fearful [] Anxious [] Often cries [] Exhaustion [] Unable to work [] Unable to attend baptism [] Unable to walk/stand [] Unable to read [] Unable to drive [] Unable to eat/drink [] Unable to sleep [] Unable to be with family [] Patient intubated [] Other: Summary Time spent with patient 5 min
--- NOTE | 2025-03-18 09:46 | PC.NURSE ---
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
--- NOTE | 2025-03-18 09:55 | PM.PROC ---
Procedure Note: Date of procedure: 03/18/25 Pre-procedure diagnosis: Syncope/ abnormal stress test Post-procedure diagnosis: other (Severe multivessel coronary artery disease) Procedure: Left main artery is patent. LAD has a severe 80% stenosis. Dual LAD system with a large diagonal artery which is patent. Left circumflex artery has a proximal 80 to 90% stenosis. OM1 has critical 95-99% stenosis. PDA is large sized vessel with two 70-80% stenosis. Transfer for CABG Performing Provider: Brant Zimmer Estimated blood loss (mL): 5 Complications: None Condition: stable Disposition: floor Coding Level of Care Code [facility]
--- NOTE | 2025-03-18 10:00 | XACV_ITS ---
Exam Room: [facility] Ht: 180 cm Wt: 92 kg BSA: 2.16 m2 Gender: Male : 1950 Any Known Allergies: No known allergies Exam Priority: Routine Procedure(s): Procedure Description: Diagnostic procedure Procedure Description: Coronary Angiography Diagnostic Cath Status: Urgent Diagnostic Findings * INDICATION: Syncope/ abnormal stress test. * There is a dual LAD system with diagonal being larger vessel. Diagonal artery has no significant vessel. Mid Left Anterior Descending: severe 80% stenosis, JOANNA: 3 flow. * Proximal Circumflex: severe 80% stenosis, JOANNA: 3 flow. * Posterior Descending Right: has 2 serial 70-80% stenosis, JOANNA: 3 flow. Large sized vessel. * Left Main has no disease. * Posterior Descending Right: obstructive 70% stenosis, JOANNA: 3 flow. * First Obtuse Marginal Branch Segment: subtotal occlusion, JOANNA: 1 flow. * Coronary angiography shows right dominance. Conclusions 1. Severe multivessel coronary artery disease. Recommendations * We will transfer patient for CABG evaluation. Interventional RX Recommendation: CABG Diagnostic RX Recommendation: CABG Anticoagulation: Heparin Pressures Phase:Rest AO : 119 / 94 ( 107 ) @ 10:10:00 AM 119 / 90 ( 106 ) @ 10:21:00 AM Clinical Evaluation EBL: 5mL-10mL Procedural Details Procedure Consent Obtained. Pre-Procedure Time Out. Identified patient by full name and date of as verbalized by the patient/guarantor. Does the consent match the physician's order: Yes. Accurate & Complete Informed Consent: Yes. Inpatient/Outpatient History & Physical on Chart: Yes. If H&P is completed, is and addenduem needed: No. Visualize and Verify Site with Patient/Guarantor: N/A. Relevant Radiology Images available: Yes. The risks, benefits, and alternatives of sedation and/or procedure were discussed by physician. The patient agrees to continue. Procedure started. [facility] Clinical Fraility Score: 3: Managing Well. Occupancy Specialist Indications: New Onset Angina/Abnormal stress test. Chest Pain Symptom Assessment: Typical Angina Symptoms. Cardiovascular Instability: No. Correct patient, site and procedure confirmed by cath team. PERRLA. Strong, equal hand experience designer bilaterally. Lungs clear x 5 lobes. IV Site on Arrival: 20 gauge in the left anticubital. IV Fluids: 0.9% NaCl at KVO. 800 mL infused prior to catholic priest. Pre Procedural Pulses: bilateral dorsalis pedis was 2+. Pre Procedural Pulses: bilateral posterior tibial was 3+. Pre Procedural Pulses: bilateral radial was 3+. Oxygen started at 2liters/min via nasal canula. right groin was prepped with chloroprep then draped in the usual sterile fashion. right radial was prepped with chloroprep then draped in the usual sterile fashion. Physician notified. Baseline sample Acquired. HR: 73 BPM. Patient's family in the catholic priest waiting room. Dr. Zimmer will update a the completion of the procedure. Equipment: 6F - Radial. Cardiac Cath Pack. ACFancloud Manifold Kit Model BT 2000. Heparinized Saline (2 units/mL), 1000 mL bag. Physician arrived. Physician scrubbed in. Immediate Pre-Procedure Time Out. Correct Patient: Yes; Correct Procedure: Yes; Correct Site: Yes; Correct Patient Position: Yes; Correct Supplies: Yes; Dried Flammable Prep: Yes; Blood Products Available: N/A;. Lidocaine 1% infiltrated to the right groin. Arterial access obtained. A 5 british virgin islander TIG catheter in over the exchange J wire. Multiple views taken of left coronary artery. Catheter removed over the exchange J wire. A 5 british virgin islander JR4 catheter in over the exchange J wire. Multiple views taken of right coronary artery. Catheter removed over the exchange J wire. A 5 british virgin islander JL4 catheter in over the exchange J wire. Multiple views taken of left coronary artery. Catheter removed over the exchange J wire. Dr. Zimmer scrubbed out to view cineography. A TR Band was successful obtaining hemostatsis at the Right Radial artery insertion site. Post Procedure: Pulses reassessed and unchanged. PERRLA. Strong, equal hand experience designer bilaterally. No VTE prophylaxis required. Medication's Wasted: Lidocaine 1% = 18 mL. Medication's Wasted: Nitro = 49.8 mg. Medication's Wasted: Heparin = 1000 units. Medication's Wasted: Other = Versed 1 mg. Medication's Wasted: Other = Fentanyl 75 mcg. Total IV fluids: 32 mL. Post-op diagnosis: Multivessel CAD. Complications: none. Estimated blood loss: 5mL-10mL. Responsiveness - Normal response to verbal stimuli; alert and oriented, PERRLA. Airway - Unaffected, no intervention required; spontaneous ventilation. Circulation: W/N/L, pulses unchanged. Procedure completed. Nausea/Vomiting: No. Patient transferred by bed to 1st floor. Vital chart was stopped. Access Site Site: Right Radial artery Sheath Size: 6 Fr Hemostasis Method: TR Band Hemostasis Success: Successful Procedure Medications Start: 9:05 AM Stop: 9:05 AM Medication: Versed Amount: 1 mg Route: I.V. Start: 9:05 AM Stop: 9:05 AM Medication: Fentanyl Amount: 25 mcg Route: I.V. Start: 9:08 AM Stop: 9:08 AM Medication: Nitrogylcerin Amount: 200 mcg Route: I.A. Start: 9:08 AM Stop: 9:08 AM Medication: Heparin Amount: 5000 units Route: I.A. I, the attending physician, have reviewed and verified all procedure medications. Yes, all medications given per verbal order History/Risk Factors Hypertension: Yes Dyslipidemia: No Peripheral Arterial Disease (PAD): No Myocardial Infarction (HI): No Obesity: No Renal Disease: No Tobacco Use: Never Prior Interventions PCI: No CABG: No Valve Surgery: No Report Signatures Finalized by Brant Zimmer MD on 03/18/2025 10:11 AM
--- NOTE | 2025-03-18 14:13 | P.PN_ITS ---
Subjective 2 Subjective: Multi-vessel disease on cath. Vitals/I&O/Wt Last Vital Signs Temp 98.0 F 03/18/25 07:58 Pulse 78 03/18/25 12:00 Resp 22 H 03/18/25 12:00 BP 135/82 03/18/25 12:00 Pulse Ox 97 03/18/25 12:00 O2 Del Method Room Air 03/18/25 02:27 03/17/25 03/18/25 03/18/25 22:59 06:59 14:59 Intake Total 270 / 1870 1000 / 1000 Balance 270 / 1870 1000 / 1000 Weight last 48 hrs Weight 90.22 kg Weight 91.716 kg Weight 92.533 kg Physical Exam 2 Const: COMMON NORMALS: no acute distress, average body habitus and patient oriented x3 HENMT: COMMON NORMALS: normocephalic and atraumatic HEAD & SCALP: n ormocephalic and atraumatic Eye: COMMON NORMALS: Equal, round and reactive pupils present PUPIL: Yes Equal, round and reactive pupils present Neck/C-Spine: COMMON NORMALS: supple Resp: COMMON NORMALS: clear to auscultation bilaterally AUSCULTATION: clear to auscultation bilaterally Cardio: COMMON NORMALS: regular rate, regular rhythm, No gallops present (Cardio), No murmurs present (Cardio) and No rub (Cardio) RATE: regular rate RHYTHM: regular rhythm GI: COMMON NORMALS: Normal to inspection, nondistended, normoactive bowel sounds present Extremity: COMMON NORMALS: full ROM and no pedal edema Neuro: COMMON NORMALS: patient oriented x3 and CN's II-XII intact bilaterally Psych: COMMON NORMALS: mental status grossly normal Skin: COMMON NORMALS: no rashes or lesions noted GENERAL SKIN EXAM: no rashes or lesions noted Data 03/18/25 02:42 03/18/25 02:42 A&P Assessment and plan 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 Abnormal stress test: Plan: 74 year old male presenting with right sided chest pressure. Multi-vessel coronary artery disease Auriculo-ventricular dissociation: Pressure in right side of chest: - Troponin unremarkable - Echo complete with normal EF of 57%, severe hypokinesis of mid and basal anterolateral and inferolateral wall segments. GIDD Continue lisinopril. - Dr. Chambers cardiology on the case - S/P abnormal stress test - per cardiology: - now s/p cath with multi-vessel disease, planning for transfer for CABG - Anticipate transfer to [facility]. - Cardiology has called the [facility] transfer center, awaiting bed assignment. - Per Dr Arzate, anticipated CABG on . - Two hours after his TR band is removed we will start heparin infusion due to sluggish flow. Right shoulder pain - This is secondary to a fall to the right shoulder days ago with chest wall pain since then - full ROM this AM without significant pain, no need for x-ray - consider outpatient ortho or sports medicine follow up if ongoing issues. Dizziness: Patient felt dizzy when passing out at the orthodox - better after getting a liter of IV fluid in the emergency room - Preliminary workup was negative patient was actually discharged from emergency room - Returned back to the emergency room upon cardiology call him back 4. Hypermagnesemia: - normal currently after IV fluids 5. Acute dehydration: - Will continue with gentle hydration with plans for contrast testing in AM - creatinine in normal range. Plan: GI and DVT prophylaxis in place Disposition - will plan to transfer to [facility] for CABG planned for once bed is available. PDMP PDMP Reviewed: Not Reviewed Attestations 2 Medical Necessity Statement*: Multi-vessel coronary artery disease Time Spent in Patient Care: 16 - 35 minutes Coding Level of Care Code Acute Code for Chg Fwd Diagnoses Auriculo ventricular dissociation I45.89 Atrioventricular (AV) dissociation I45.89 Abnormal stress test R94.39
--- NOTE | 2025-03-18 14:59 | PC.NURSE ---
Patients right radial TR-band is removed. Air is slowly removed 2ml's at a time. No hemotoma is noted. A dressing is applied of 2x2 and tegaderm. Patient tolerated well. Patient is reeducated that he is not to use his right hand/wrist for 24 hours after the angiogram. Patient states understanding. Guillermina Triana stopped nursing staff in the hallway and ordered that Dr. Zimmer wants the heparin drip, per protocol, to be restarted 2 hours after the TR-band is removed.
[2025-03-18] MEDS: heparin 5,000 unit/mL INJ 1 mL IVP (16:57)
[2025-03-18] MEDS: heparin drip 25,000 UNIT/500 ML PREMIX 25 UNIT IV (16:59)
--- NOTE | 2025-03-18 23:23 | PC.NURSE ---
[facility] at bedside to transport patient to [facility]. Patient has NS running at 100 mls/hr and heparin is running at 25 mls/hr. Ptt was just drawn for heparin titration, this nurse can call EMS when results are up to have them adjust if needed.
[2025-03-18 23:37] LABS: Partial Thromboplastin Time 83.8 SECONDS (23.9-36.7)
[2025-03-19 00:01] VITALS: BP 139/82
--- NOTE | 2025-03-19 07:47 | P.DS_ITS ---
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 Abnormal stress test: Reason for Visit 2 Reason for Visit: chest pain, called to return by cardiology Hospital Course Hospital Course 74 year old male presenting with right sided chest pressure. Multi-vessel coronary artery disease Auriculo-ventricular dissociation: Pressure in right side of chest: - Troponin unremarkable - Echo complete with normal EF of 57%, severe hypokinesis of mid and basal anterolateral and inferolateral wall segments. GIDD Continue lisinopril. - Dr. Chambers cardiology on the case - S/P abnormal stress test - per cardiology: - now s/p cath with multi-vessel disease, planning for transfer for CABG - Anticipate transfer to [facility]. - Cardiology has called the [facility] transfer center, awaiting bed assignment. - Per Dr Arzate, anticipated CABG on . - Two hours after his TR band is removed we will start heparin infusion due to sluggish flow. Right shoulder pain - This is secondary to a fall to the right shoulder days ago with chest wall pain since then - full ROM this AM without significant pain, no need for x-ray - consider outpatient ortho or sports medicine follow up if ongoing issues. Dizziness: Patient felt dizzy when passing out at the [facility] - better after getting a liter of IV fluid in the emergency room - Preliminary workup was negative patient was actually discharged from emergency room - Returned back to the emergency room upon cardiology call him back 4. Hypermagnesemia: - normal currently after IV fluids 5. Acute dehydration: - Will continue with gentle hydration with plans for contrast testing in AM - creatinine in normal range. Plan: GI and DVT prophylaxis in place Disposition - Patient was transferred to [facility] for CABG planned for in the evening of 03/18 Discharge Data Studies Completed and Pending Completed Studies During Hospitalization Category Date Time Status STILL TENDER request for service Routine Exams 03/18/25 10:00 Completed Cardiac Stress Test MIBI [Sestamibi Stress Test Request Exams 03/17/25 00:00 Draft ] Routine NM gabo perf SPECT r/s* [id number] Routine Nuc Med 03/17/25 20:26 Completed Laboratory Results WBC 11.35 10^3/uL (3.29-11.43) 03/18/25 02:42 RBC 4.87 10^6/uL (3.85-5.65) 03/18/25 02:42 Hgb 15.10 g/dL (11.27-16.99) 03/18/25 02:42 Hct 44.6 % (37-53) 03/18/25 02:42 MCV 91.6 fl (82-101) 03/18/25 02:42 MCH 31.0 pg (27-33) 03/18/25 02:42 MCHC 33.9 g/dL (30-55) 03/18/25 02:42 RDW 12.7 % (12.1-15.1) 03/18/25 02:42 Plt Count 153 10^3/cmm (157-399) L 03/18/25 02:42 MPV 10.8 fL (7.4-10.4) H 03/18/25 02:42 Neut % (Auto) 77.2 % 03/18/25 02:42 Lymph % (Auto) 12.0 % 03/18/25 02:42 Hayes % (Auto) 10.0 % 03/18/25 02:42 Eos % (Auto) 0.2 % 03/18/25 02:42 Baso % (Auto) 0.2 % 03/18/25 02:42 Neut # (Auto) 8.78 10^3/uL (1.8-7.7) H 03/18/25 02:42 Lymph # (Auto) 1.4 10^3/uL (0.8-4.8) 03/18/25 02:42 Hayes # (Auto) 1.1 10^3/uL (0.2-0.9) H 03/18/25 02:42 Eos # (Auto) 0.0 10^3/uL (0.0-0.8) 03/18/25 02:42 Baso # (Auto) 0.0 10^3/uL (0.0-0.1) 03/18/25 02:42 Nucleated RBC % (auto) 0 % 03/18/25 02:42 Nucleated RBCs # 0.0 /100WBC 03/18/25 02:42 APTT 83.8 SECONDS (23.9-36.7) H 03/18/25 23:01 Sodium 140 mmol/L (136-145) 03/18/25 02:42 Potassium 3.5 mmol/L (3.5-5.1) 03/18/25 02:42 Chloride 105 mmol/L (98-107) 03/18/25 02:42 Carbon Dioxide 23 mmol/L (22-29) 03/18/25 02:42 Anion Gap 15.5 (5-19) 03/18/25 02:42 BUN 10 mg/dL (8-23) 03/18/25 02:42 Creatinine 0.9 mg/dL (0.7-1.2) 03/18/25 02:42 GFR Calculation Not Reportable 03/18/25 02:42 Glucose 117 mg/dL (65-115) H 03/18/25 02:42 Calculated Osmolality 290 mOsm/kg (285-295) 03/18/25 02:42 Lactic Acid 0.9 mmol/L (0.5-2.2) 03/17/25 04:02 Calcium 8.3 mg/dL (8.5-10.5) L 03/18/25 02:42 Phosphorus 2.2 mg/dL (2.5-4.5) L 03/17/25 04:02 Magnesium 2.2 mg/dL (1.7-2.3) 03/18/25 02:42 Total Bilirubin 0.9 mg/dL (0.15-1.2) 03/17/25 04:02 AST 133 U/L (0-40) H 03/17/25 04:02 ALT 25 U/L (0-41) 03/17/25 04:02 Alkaline Phosphatase 78 U/L (40-130) 03/17/25 04:02 Total Protein 5.5 g/dL (6.6-8.7) L 03/17/25 04:02 Albumin 3.5 g/dL (3.5-5.2) 03/17/25 04:02 Globulin 2.0 g/dL (1.3-4.6) 03/17/25 04:02 Vitals Last Vital Signs Temp 100.1 F H 03/18/25 23:53 Pulse 98 03/18/25 23:53 Resp 20 H 03/18/25 23:53 BP 139/82 03/19/25 00:01 Pulse Ox 95 03/18/25 23:53 O2 Del Method Room Air 03/18/25 19:39 Discharge Plan Discharge Patient Disposition: Xfer Other Condition: Stable Prescriptions: No Action lisinopril 10 mg tablet 10 mg PO DAILY Discharge Order = DC NOW: Discharge Order (Routine); Ordered 03/19/25 Ordered By: Estevan Alarcon Patient Instructions: Opioid Safety, Patient Portal & Roxanne Instructions Discharge Attestations Time Spent in Discharge Care*: greater than 30 min Quality Metrics Clinical Quality Measures [ No reported AMI, CVA or VTE this stay] Coding Level of Care Code Acute Code for Chg Fwd Diagnoses Auriculo ventricular dissociation I45.89 Atrioventricular (AV) dissociation I45.89 Abnormal stress test R94.39
== END 2025-03-18 23:53 | disposition home or self-care (01) | DRG 287 ==
LOC: ER 16:26 → CSU 16:38
PROVIDERS: Internal Medicine; Admitting Provider Internal Medicine; Emergency Provider General Practice; Visit Provider Internal Medicine
PROC: B2111ZZ Fluoroscopy of Multiple Coronary Arteries using Low Osmolar Contrast (ICD-10-PCS; principal; 2025-03-18 10:00)
DX: I25.10 Atherosclerotic heart disease of native coronary artery without angina pectoris (principal); I45.89 Other specified conduction disorders; M25.511 Pain in right shoulder; E83.41 Hypermagnesemia; E86.0 Dehydration; R07.9 Chest pain, unspecified; I10 Essential (primary) hypertension; R42 Dizziness and giddiness; W18.30XA Fall on same level, unspecified, initial encounter; I35.1 Nonrheumatic aortic (valve) insufficiency; R94.39 Abnormal result of other cardiovascular function study; Z86.16 Personal history of COVID-19
CPT/HCPCS: 36415; 78452; 80048; 80053; 83605; 83735; 84100; 85025; 85730; 93005; 93454; 96372; 99152; 99153; 99285; A9500; C1769; C1887; C1894; G0378; J0360; J1644; J2250; J3010; J3490; J7030; J9999; Q0163; Q9967